=== PATIENT | female | born 1955 | race Caucasian/White ===

== ENCOUNTER 2016-07-23 10:00 | Inpatient (IN) ==
[2016-07-23 12:30] LABS: Basophils # (Auto) 0 K/mcL (0.0-0.3); Basophils % (Auto) 0.2 % (0.0-2.0); Eosinophils # (Auto) 0.2 K/mcL (0.0-0.7); Eosinophils % (Auto) 2.6 % (0.0-7.0); Granulocytes % (Auto) 68.5 % (38.0-78.0); Lymphocytes # (Auto) 1.7 K/mcL (1.5-4.8); Lymphocytes % (Auto) 23.6 % (15.5-49.0); Mean Cell Volume 94.9 fL (80.0-100.0); Mean Corpuscular HGB Conc 33.1 g/dL (31.0-36.0); Mean Corpuscular Hemoglobin 31.4 pg (26.0-34.0); Monocytes # (Auto) 0.4 K/mcL (0.1-0.9); Monocytes % (Auto) 5.1 % (1.0-9.0); Platelet Count 296 K/mcL (140-440); RBC 4.53 M/mcL (4.00-5.20); Red Cell Distribution Width 12.5 % (11.5-14.5)
[2016-07-23 12:41] LABS: Blood Urea Nitrogen 16 mg/dl (6-20)
[2016-07-23 14:43] LABS: Appearance,Urine CLEAR; Bilirubin,Urine NEG (NEG); Color,Urine YELLOW; Glucose,Urine (UA) NEGATIVE (NEG); Leukocyte Esterase,Urine NEG /uL (NEG); Nitrate,Urine NEG (NEG); Protein,Urine NEG (NEG); Specific Gravity,Urine 1.013 (1.000-1.035); Urine Blood NEG mg/dL (<0.03); Urobilinogen,Urine NEG (NEG)
[2016-07-29] MEDS ORDERED: oxyCODONE 10 MG TAB.ER.12H PO SCH (05:00)
[2016-07-29] MEDS ORDERED: ACETAMINOPHEN 500 MG TABLET PO SCH (05:00)
[2016-07-29] MEDS ORDERED: PREGABALIN 150 MG CAPSULE PO SCH (05:00)
[2016-07-29] MEDS ORDERED: CELECOXIB 200 MG CAPSULE PO SCH (05:00)
[2016-07-29] MEDS ORDERED: KETOROLAC 30 MG, ROPIVACAINE HCL/PF 49.5 ML, EPINEPHrine 0.5 MG, 0.9 % SODIUM CHLORIDE ... IJ SCH (06:30)
[2016-07-29] MEDS ORDERED: CLINDAMYCIN 900 MG in DEXTROSE 5% IN WATER 50 ML IV SCH (06:30)
[2016-07-29] MEDS ORDERED: SCOPOLAMINE 1 PATCH PATCH TOPICAL ONE (10:37)
[2016-07-29] MEDS ORDERED: TRANEXAMIC ACID 1,000 MG/10 ML VIAL IV ONE ×2 (16:00→17:35)
[2016-07-29] MEDS ORDERED: DEXAMETHASONE 10 MG/ML VIAL IV ONE (16:00)
[2016-07-29] MEDS ORDERED: PROPOFOL 200 MG/20 ML VIAL IV ONE (16:00)
[2016-07-29] MEDS ORDERED: MIDAZOLAM 5 MG/5 ML VIAL IV ONE (16:00)
[2016-07-29] MEDS ORDERED: PHENYLEPHRINE 10 MG/ML VIAL IV ONE (16:00)
[2016-07-29] MEDS ORDERED: GLYCOPYRROLATE 0.2 MG/ML VIAL IV ONE (16:00)
[2016-07-29] MEDS ORDERED: LIDOCAINE HCL/PF 100 MG/5 ML SYRINGE IV ONE (16:00)
[2016-07-29] MEDS ORDERED: ROPIVACAINE HCL/PF 30 ML VIAL IJ ONE (16:00)
[2016-07-29] MEDS ORDERED: ONDANSETRON 4 MG/2 ML VIAL IV ONE (16:00)
[2016-07-29] MEDS ORDERED: GENTAMICIN SULFATE 800 MG/20 ML VIAL IR ONE (16:23)
[2016-07-29] MEDS ORDERED: ONDANSETRON 4 MG/2 ML VIAL IV PRN (16:37)
[2016-07-29] MEDS ORDERED: PROMETHAZINE 25 MG/ML VIAL IM ONE (16:37)
[2016-07-29] MEDS ORDERED: METHOCARBAMOL 1,000 MG/10 ML VIAL IV PRN (16:37)
[2016-07-29] MEDS ORDERED: MEPERIDINE 25 MG/ML SYRINGE IV PRN (16:37)
[2016-07-29] MEDS ORDERED: PROMETHAZINE 25 MG/ML VIAL IV PRN (16:37)
[2016-07-29] MEDS ORDERED: METOCLOPRAMIDE 10 MG/2 ML VIAL IV PRN (16:37)
[2016-07-29] MEDS ORDERED: IPRATROPIUM/ALBUTEROL 3 ML AMPUL.NEB NEB PRN (16:37)
[2016-07-29] MEDS ORDERED: LACTATED RINGERS 250 ML IV PRN (16:37)
[2016-07-29] MEDS ORDERED: NALOXONE HCL 0.4 MG/ML VIAL IV PRN (16:37)
[2016-07-29] MEDS ORDERED: diphenhydrAMINE 50 MG/ML VIAL IV PRN (16:37)
[2016-07-29] MEDS ORDERED: ePHEDrine 50 MG/ML AMPUL IV PRN (16:37)
[2016-07-29] MEDS ORDERED: BENZOCAINE/MENTHOL 1 LOZENGE PO PRN ×2 (16:37→17:35)
[2016-07-29] MEDS ORDERED: fentaNYL 100 MCG/2 ML VIAL IV PRN (16:37)
[2016-07-29] MEDS ORDERED: MEPERIDINE 50 MG/ML SYRINGE IM ONE (16:37)
[2016-07-29] MEDS ORDERED: FLUMAZENIL 0.1 MG/ML ML IV PRN (16:37)
[2016-07-29] MEDS ORDERED: HYDROmorphone 2 MG/ML SYRINGE IV PRN ×2 (16:37→17:35)
[2016-07-29] MEDS ORDERED: LACTATED RINGERS 1,000 ML IV SCH (16:45)
[2016-07-29] MEDS ORDERED: FLEETS ADULT ENEMA PR PRN (17:35)
[2016-07-29] MEDS ORDERED: POLYETHYLENE GLYCOL 3350 17 GM PACKET PO PRN (17:35)
[2016-07-29] MEDS ORDERED: BISACODYL 10 MG SUPP.RECT PR PRN (17:35)
[2016-07-29] MEDS ORDERED: TEMAZEPAM 15 MG CAPSULE PO PRN (17:35)
[2016-07-29] MEDS ORDERED: ACETAMINOPHEN 325 MG TABLET PO PRN (17:35)
[2016-07-29] MEDS ORDERED: MAGNESIUM HYDROXIDE 30 ML ORAL.SUSP PO PRN (17:35)
[2016-07-29] MEDS ORDERED: HYDROCODONE/APAP 7.5/325MG TABLET PO PRN (17:38)
[2016-07-29] MEDS ORDERED: traMADol 50 MG TABLET PO PRN (17:38)
--- NOTE | 2016-07-29 17:44 | Brief Operative Note ---
Date of procedure: 07/29/16 Pre-op diagnosis: right knee djd Post-op diagnosis: same Procedure: right total knee Grafts/Implants: Yes Anesthesia: GETA Findings: severe valgus djd Complications: none Surgeon: Rodrigo Aparicio Crust Sorter: Bill Bernard Estimated blood loss (cc): 30 Tourniquet Time (Minutes): 33 Specimens Removed/Pathology: none sent Condition: stable Disposition: PACU
[2016-07-29] MEDS ORDERED: ceFAZolin 1 GM VIAL IV SCH (17:45)
[2016-07-29] MEDS: KETOROLAC 15 MG/ML VIAL IV SCH (17:59)
--- NOTE | 2016-07-29 18:11 | XRay Report ---
CLINICAL INFORMATION: Postsurgical follow-up TECHNIQUE: AP and lateral right knee COMPARISON: None. FINDINGS: Status post right total knee arthroplasty. Femoral and tibial complements are in anatomic positions. There is postsurgical soft tissue and intra-articular gas. IMPRESSION: Postoperative right total knee arthroplasty. Interpreted and Authenticated by: Matt Bolivar 07/29/16
[2016-07-29] MEDS: 0.45 % SODIUM CHLORIDE 1,000 ML IV SCH (20:09)
[2016-07-29] MEDS: ASPIRIN 325 MG ENTERIC COATED TABLET PO SCH (20:42)
[2016-07-29] MEDS: DOCUSATE SODIUM 100 MG CAPSULE PO SCH (20:42)
[2016-07-29] MEDS: ONDANSETRON 4 MG/2 ML VIAL IV PRN (20:53)
[2016-07-29] MEDS: HYDROcodone/APAP 10/325MG TABLET PO PRN (20:53)
[2016-07-29] MEDS ORDERED: SENNOSIDES 1 TABLET PO SCH (21:00)
[2016-07-29] MEDS ORDERED: ATORVASTATIN 20 MG TABLET PO SCH (21:00)
[2016-07-29] MEDS: 0.9 % SODIUM CHLORIDE 10 ML SYRINGE IV SCH (22:48)
[2016-07-30] MEDS: KETOROLAC 15 MG/ML VIAL IV SCH ×3 (00:57→12:07)
[2016-07-30] MEDS: CLINDAMYCIN 900 MG in DEXTROSE 5% IN WATER 50 ML IV SCH ×2 (00:57→08:11)
[2016-07-30] MEDS: HYDROcodone/APAP 10/325MG TABLET PO PRN ×4 (01:08→14:50)
[2016-07-30] MEDS: ONDANSETRON 4 MG/2 ML VIAL IV PRN ×3 (01:09→09:56)
[2016-07-30] MEDS: 0.45 % SODIUM CHLORIDE 1,000 ML IV SCH ×2 (03:06→10:01)
[2016-07-30] MEDS: 0.9 % SODIUM CHLORIDE 10 ML SYRINGE IV SCH ×2 (05:33→12:08)
[2016-07-30] MEDS ORDERED: GLIMEPIRIDE 2 MG TABLET PO SCH (07:30)
[2016-07-30] MEDS ORDERED: LEVOTHYROXINE 25 MCG TABLET PO SCH (07:30)
--- NOTE | 2016-07-30 07:52 | Orthopedic Progress Note ---
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 Chief Complaint: [Pt is stable this morning on post operative day 1 without any significant concerns or complaints. Patients vital signs have remained stable. Patients dressing is dry and exhibits a grossly intact neurovascular and neuromotor exam. Patients 10 point ROS is otherwise negative. ] Objective Vital signs: Vital Signs Temp Pulse Resp BP BP BP Pulse Ox 07/30/16 03:56 97.1 F L 83 20 130/85 96 07/30/16 03:00 95 07/30/16 00:00 98.1 F 87 20 134/80 94 07/29/16 23:00 95 07/29/16 21:02 91 H 137/81 96 07/29/16 20:02 78 128/80 96 07/29/16 19:43 96 07/29/16 19:42 96 07/29/16 19:32 89 128/74 96 07/29/16 19:02 77 124/70 96 07/29/16 18:47 84 139/74 98 07/29/16 18:31 73 129/86 97 07/29/16 18:17 75 133/89 98 07/29/16 18:00 80 16 135/84 97 07/29/16 17:50 86 15 134/79 95 07/29/16 17:45 81 15 132/74 95 07/29/16 17:40 82 14 118/84 99 07/29/16 17:35 69 13 108/65 96 07/29/16 17:31 98.0 F 67 13 115/61 99 07/29/16 12:00 97.1 F L 73 20 137/87 137/85 95 07/29/16 11:35 97.1 F L 73 20 137/87 95 Intake and Output 07/29/16 07/30/16 07/30/16 21:59 05:59 13:59 Intake Total 1100 / 1100 900 / 900 Output Total 376 / 376 Balance 1074 / 1074 524 / 524 Intake: IV 1100 / 1100 Oral 900 / 900 Output: Void Amount 375 / 375 # of times incontinent of urine Estimated Blood Loss Other: # Voids 1 1 Weight 198 lb Intake & Output: Intake & Output 07/29/16 07/30/16 07/30/16 21:59 05:59 13:59 Intake Total 1100 / 1100 900 / 900 Output Total 376 / 376 Balance 1074 / 1074 524 / 524 Weight 198 lb Intake: IV 1100 / 1100 Oral 900 / 900 Output: Void Amount 375 / 375 # of times incontinent of urine Estimated Blood Loss Other: # Voids 1 1 Incision: Yes healing Incision clean and dry: Yes Dressing: Yes clean, Yes dry Weight bearing status: full Neurological exam IM: Yes motor sensory intact, Yes neurovascular intact Extremities exam IM: Yes Foot pink and warm, Yes neurovascular intact - Labs CBC & BMP: 07/30/16 04:40 07/23/16 10:54 Labs: Orthopedic Labs 07/23/16 10:54 PT 12.9 INR 1.0 APTT 30 07/30/16 07/23/16 04:40 10:54 Hgb 14.2 Hct 39.2 43.0 Assessment and Plan (1) Hx of total knee arthroplasty Patient has been educated regarding wound care and dressings, follow up recommendations, and medication use. We will f/u with the patient within 2-3 weeks for wound check. Status: Acute
--- NOTE | 2016-07-30 07:55 | Discharge Summary ---
Ortho Discharge - TKA - Patient Instructions Diet: Regular Diet Activity: activity as tolerated, weight bearing as tolerated Total Knee Protocol: For Total Knee: Start ROM VIRGEN with stationary bike or rocking chair. Work on gaining full extension of knee. Posterior dislocation precautions provided. Hip abductor strengthening and gait training instructions provided. Apply Cryocuff as instructed. Dressing Care: May shower in 2 days - Problem Maintenance (1) Hx of total knee arthroplasty Status: Acute - Follow Up Plan Follow Up Appointments: Rodrigo Aparicio MD [Physician] - 08/13/16 10:10 am Disposition: Home, Self-Care Prognosis: Good Rehab Potential: Good I certify that the patient requires SNF services: No Overall status at discharge: patient is progressing back to baseline - Orders For Discharge Prescriptions: Aspirin [Ecotrin] 325 mg PO BID #60 tab.ec Docusate Sodium [Colace] 100 mg PO BID #60 capsule HYDROcodone/APAP 10/325MG [[place] 10/325Mg] 1 - 2 tab PO Q4HP PRN #75 tablet PRN Reason: Pain Promethazine [Phenergan] 25 mg PO Q4-6HP PRN #60 tablet PRN Reason: Nausea
[2016-07-30] MEDS ORDERED: FERROUS SULFATE 325 MG TABLET PO SCH (08:00)
[2016-07-30] MEDS: metFORMIN 850 MG TABLET PO SCH ×2 (08:11→12:07)
[2016-07-30] MEDS: DOCUSATE SODIUM 100 MG CAPSULE PO SCH (08:17)
[2016-07-30] MEDS: ASPIRIN 325 MG ENTERIC COATED TABLET PO SCH (08:17)
--- NOTE | 2016-07-30 08:44 | Operative Note ---
DATE OF OPERATION: 07/29/2016 PREOPERATIVE DIAGNOSIS: Right knee degenerative arthritis with a prior ACL tear with severe arthritis. POSTOPERATIVE DIAGNOSIS: Right knee degenerative arthritis with a prior ACL tear with severe arthritis. PROCEDURE: Right total knee arthroplasty with ACL screw removal. SURGEON: Rodrigo Aparicio MD. DETENTION WORKER: Bill Bernard PA-C. ANESTHESIA: General LMA anesthesia. COMPLICATIONS: None. ESTIMATED BLOOD LOSS: About 20 to 30 mL. IMPLANTS: Size 3 femur and size 3 tibial baseplate, both cemented components with ODC components with a 9 mm poly insert, 32 mm patellar button cemented. TOTAL TOURNIQUET TIME: Approximately 33 minutes. DESCRIPTION OF PROCEDURE: The patient was brought to the operating room and put to sleep with general LMA anesthesia. Once asleep, the right leg was sterilely prepped and draped in the usual sterile fashion and Ioban placed over the skin. Tourniquet inflated to 250 pounds of pressure. Once complete, we then made a midline incision after confirming this to be the operative site, and tranexamic and preop antibiotics had been given. Once complete, we then made a midline incision. A mid vastus approach was performed. There was severe wear laterally and posteriorly as well as patellofemoral groove. The ACL did appear to be intact. At this point, we removed the remnants of the meniscus, anterior fat pad and remnants of the ACL. At this point, we then placed an intramedullary guide jw into the femur, made our distal femoral cut at 9 mm with 5 degrees of valgus. Once this was done, we then irrigated thoroughly, removed the bony fragments after making the chamfer cuts after sizing for size 3 component. At this point, we proceeded with the tibial component. We measured 8 mm below the least involved area. We cut to depth and then removed the bony fragments and the remnants of the meniscus, removed osteophytes posteriorly. Once done, I then placed tibial baseplate size 3, which was tapped into place with anatomic external rotation. Once the fins were cut into place, we did remove the ACL screw and sheath through the tibial surface. Some of the remnants of the ACL were also removed from the bone which were ingrown. At this point, we then made the box cut for the femur size 3 component posterior stabilized design. We trialed the size 3 femur and size 3 tibial baseplate with a 9 mm poly. This seemed to fit very well, although somewhat tight laterally. This seemed to balance very nicely in both flexion and extension. We irrigated thoroughly and prepared the patella. It measured 20 mm in total thickness. We cut this to 13 mm and placed a 32 mm component. We irrigated thoroughly. We then cemented into place a size 3 femur and size 3 tibial base plate. A 9 mm poly was inserted as well as a 32 mm patellar button. This was kept at 45 degrees. Excess cement removed. Once this was done and once the cement was hard, we took the knee through range of motion which did very well, equally balanced once more. We closed the mid vastus approach with #2 FiberWire and an 0 double-armed Maxon interlocking stitch, closed the skin with 2-0 Vicryl and katrin superficially. The patient tolerated this well without complication. Blood loss about 20 to 30 mL. Tourniquet time was 33 minutes. RBH:shaw Job ID: [id number] Doc ID: [id number] Rodrigo Aparicio MD
[2016-07-30] MEDS ORDERED: sitaGLIPtin 50 MG TABLET PO SCH (09:00)
[2016-07-30] MEDS ORDERED: OXYBUTYNIN CHLORIDE 5 MG TAB.XL.24H PO SCH (09:00)
[2016-07-30] MEDS ORDERED: MULTIVIT,THER IRON,CA,FA & MIN 1 TABLET PO SCH (09:00)
[2016-07-30] MEDS ORDERED: buPROPion 150 MG TAB.XL.24H PO SCH (09:00)
[2016-07-30] MEDS ORDERED: LISINOPRIL 10 MG TABLET PO SCH (09:00)
[2016-07-30] MEDS ORDERED: HYDROCHLOROTHIAZIDE 12.5 MG CAPSULE PO SCH (09:00)
== END 2016-07-30 16:40 | disposition home or self-care (01) | DRG 470 ==
LOC: MEDSUR 07-29 11:35
PROVIDERS: ADMIT Orthopaedic Surgery; ATTEND Orthopaedic Surgery

== ENCOUNTER 2020-01-27 14:55 | Inpatient (IN) ==
--- NOTE | 2020-01-27 15:47 | Emergency Department Note ---
Extremity Problem HPI General Chief complaint: Extremity Problem,Nontraumatic Stated complaint: R knee pain x2D Time Seen by Provider: 01/27/20 15:04 Source: patient Mode of arrival: ambulatory Limitations: no limitations History of Present Illness HPI Narrative: Narrative: 64-year-old female presents emergency department from her outpatient clinic for complaints of right knee pain x2 days. The patient had a total knee arthroplasty [address] Aparicio. She states that she went to bed and woke up with severe global knee pain. She was unable to range of motion the extremity due to severe discomfort. She denies chills or sweats, but did have a low-grade temperature of 101 yesterday. She was advised to come to the emergency department for evaluation and probable surgical I&D for an infected total knee. Patient has a history of poorly controlled diabetes. She believes her last A1c was around 10. She is currently on metformin, glimepiride, and insulin. She is currently not on blood thinners. She has no history of clotting disorders or DVTs. No known cardiac history. She denies recent illness. No cough or shortness of breath. No abdominal pain or changes in her bowel habits. No dysuria. No ill exposures. She does live in [place], [place]. Related Data Home Medications Medication Instructions Recorded Confirmed Atorvastatin [Lipitor] 10 mg PO HS 07/23/16 01/27/20 aspirin 81 mg CHEWED DAILY 07/23/16 01/27/20 bupropion HCl [Wellbutrin XL] 300 mg PO DAILY 07/23/16 01/27/20 glimepiride 2 mg PO BIDAC 07/23/16 01/27/20 lisinopril-hydrochlorothiazide 1 tab PO DAILY 07/23/16 01/27/20 metformin 850 mg PO TIDCC 07/23/16 01/27/20 oxybutynin chloride 10 mg PO DAILY 07/23/16 01/27/20 gabapentin 300 mg PO TID 01/27/20 01/27/20 insulin glargine [Basaglar KwikPen 30 unit SUBCUT DAILY 01/27/20 01/27/20 U-100 Insulin] meloxicam [Mobic] 15 mg PO QDAY 01/27/20 01/27/20 [id number]-[id number]-vit K 1 tab PO DAILY 01/27/20 01/27/20 [Adults Multivitamin] Previous Rx's Medication Instructions Recorded hydrocodone-acetaminophen 1 - 2 tab PO Q4HP PRN #75 tablet 07/30/16 Allergies Allergy/AdvReac Type Severity Reaction Status Date / Time Penicillins Allergy Severe Anaphylaxis Verified 07/23/16 10:19 Review of Systems ROS ROS Narrative: Narrative: Constitutional: Reports as per HPI Cardiovascular: Denies chest pain and palpitations Gastrointestinal: Denies abdominal pain, nausea and vomiting Genitourinary: Denies dysuria and frequency Musculoskeletal: Reports as per HPI Integumentary: Denies rash and lesions Hematological/Lymphatic: Reports other (No history of clotting disorders or DVTs) [facility] Narrative Patient History Narrative: Narrative: Medical/Surgical/Family History All Active Problems (Updated 01/27/20 @ 16:10 by Mariama Bragg PA-C) Hx of total knee arthroplasty (Acute) Infected prosthetic knee joint (Acute) Surgical History (Updated 01/27/20 @ 16:10 by Mariama Bragg PA-C) Hx of total knee arthroplasty (Acute) Social History Smoking Status: Former smoker Exam Narrative Narrative: Narrative: General Limitations: no limitations General appearance: alert, anxious, in no apparent distress and nontoxic Head Head: atraumatic, normocephalic and normal inspection Eye Eye: Present normal appearance, PERRL and EOMI ENT ENT: Present normal exam Respiratory Respiratory: Present normal lung sounds bilaterally Cardiovascular Cardiovascular: Present regular rate, normal rhythm and normal heart sounds Extremities Extremities: Present tenderness, normal capillary refill and joint swelling (Warm to the touch, mild joint swelling noted.); Absent calf tenderness Expanded Lower Extremity Upper leg: Present tenderness (Right knee joint), swelling and erythema; Absent full ROM Knee: Present tenderness, erythema and other (Painful ROM) Course Vital Signs Vital signs: Vital Signs Temperature 98.3 F 01/27/20 14:57 Pulse Rate 80 01/27/20 14:57 Respiratory Rate 18 01/27/20 14:57 Blood Pressure 124/76 01/27/20 14:57 Pulse Oximetry (%) 96 01/27/20 14:57 Temperature 98.3 F 01/27/20 14:57 Pulse Rate 82 01/27/20 17:16 Respiratory Rate 18 01/27/20 14:57 Blood Pressure 122/88 01/27/20 17:16 Pulse Oximetry (%) 96 01/27/20 17:16 MDM MDM Narrative Medical decision making narrative: Narrative: 64-year-old female with a history of right total knee arthroplasty presents with new onset acute knee pain and concern for infection. Assessment: #1. Periprosthetic joint infection, right: History of right TKA [address] Aparicio. -Joint aspiration, Dr. Tilley's PA is here to perform that. We will send off cultures, Gram stain's, cell count, etc -We will plan to contact hospitalist for admission for IV antibiotics and likely arthroscopic washout tomorrow morning -Sed rate, CRP, CBC currently pending -Bcx x 2 -Start vanco now (has anaphylaxis to penicillins) -Admit to hospitalist service, orthopedics consulting #2. Poorly controlled type 2 diabetes: -A1c is pending Lab Data Result diagrams: 01/27/20 15:49 01/27/20 15:49 Labs: Lab Results 01/27/20 01/27/20 01/27/20 Range/Units 15:49 15:49 15:49 WBC 9.1 (4.50-11.00) K/mcL RBC 4.53 (3.59-5.38) M/mcL Hgb 14.3 (11.2-15.7) g/dL Hct 41.8 (34.1-44.9) % MCV 92.3 (80.0-100.0) fL MCH 31.6 (26.0-34.0) pg MCHC 34.2 (31.0-36.0) g/dL RDW 11.7 (11.5-14.5) % Plt Count 195 (140-440) K/mcL MPV 9.5 (7.4-10.4) fL Total Counted 100 Seg Neutrophils % 76 (38-78) % Band Neutrophils % Not Reportable Lymphocytes % 18 (15-49) % Monocytes % (Manual) 5 (1-12) % Basophils % (Manual) 1 (0-2) % Platelet Estimate Normal (NORMAL) RBC Morphology Normal (NORMAL) ESR 34 H (0-20) mm/hr PT 12.3 (11.9-14.5) sec INR 0.9 (0.9-1.1) Sodium 133 (133-145) mmol/L Potassium 3.7 (3.3-5.1) mmol/L Chloride 95 L (96-108) mmol/L Carbon Dioxide 23 (22-30) mmol/L Anion Gap 15.0 (8-16) BUN 21 (8-23) mg/dl Creatinine 1.1 (0.6-1.1) mg/dl GFR Calculation 54 Glucose 244 H (70-105) mg/dL Hemoglobin A1c 11.5 H (4.0-6.0) % HGB Estim Average Glucose 283 mg/dL Calcium 9.5 (8.6-10.4) mg/dl Total Bilirubin 0.9 (0.0-1.0) mg/dL AST 24 (0-37) U/l ALT 54 H (0-40) U/l Alkaline Phosphatase 63 (39-117) U/L C-Reactive Protein 17.7 H (0.0-0.8) mg/dl Total Protein 7.3 (5.9-8.4) gm/dL Albumin 4.1 (3.2-5.2) gm/dL Globulin 3.2 (2.2-3.7) gm/dL Albumin/Globulin Ratio 1.3 (1.0-2.3) Urine Color Urine Appearance Urine pH (5.0-9.0) Ur Specific [place] (1.000-1.035) Urine Protein (NEG) mg/dL Urine Glucose (UA) (NEG) mg/dL Urine Ketones (NEG) mg/dL Urine Occult Blood (<0.03) mg/dL Urine Nitrate (NEG) Urine Bilirubin (NEG) mg/dL Urine Urobilinogen (NEG) mg/dL Ur Leukocyte Esterase (NEG) /uL Urine RBC (0-1) /hpf Urine WBC (0-4) /hpf Ur Squamous Epith Cells (0-4) /hpf Urine Bacteria (0) /hpf Hyaline Casts (0-2) /lpf Urine Mucus (0) /hpf Ur Culture Indicated? Synovial Source Synovial Color Synovial Appearance Synovial Tot Cell Ct Synovial Nuc Cells /cumm Synovial Lymphocytes Synovial Other Cells Synovial Diff Comment 01/27/20 01/27/20 Range/Units 16:32 17:17 WBC (4.50-11.00) K/mcL RBC (3.59-5.38) M/mcL Hgb (11.2-15.7) g/dL Hct (34.1-44.9) % MCV (80.0-100.0) fL MCH (26.0-34.0) pg MCHC (31.0-36.0) g/dL RDW (11.5-14.5) % Plt Count (140-440) K/mcL MPV (7.4-10.4) fL Total Counted Seg Neutrophils % (38-78) % Band Neutrophils % Lymphocytes % (15-49) % Monocytes % (Manual) (1-12) % Basophils % (Manual) (0-2) % Platelet Estimate (NORMAL) RBC Morphology (NORMAL) ESR (0-20) mm/hr PT (11.9-14.5) sec INR (0.9-1.1) Sodium (133-145) mmol/L Potassium (3.3-5.1) mmol/L Chloride (96-108) mmol/L Carbon Dioxide (22-30) mmol/L Anion Gap (8-16) BUN (8-23) mg/dl Creatinine (0.6-1.1) mg/dl GFR Calculation Glucose (70-105) mg/dL Hemoglobin A1c (4.0-6.0) % HGB Estim Average Glucose mg/dL Calcium (8.6-10.4) mg/dl Total Bilirubin (0.0-1.0) mg/dL AST (0-37) U/l ALT (0-40) U/l Alkaline Phosphatase (39-117) U/L C-Reactive Protein (0.0-0.8) mg/dl Total Protein (5.9-8.4) gm/dL Albumin (3.2-5.2) gm/dL Globulin (2.2-3.7) gm/dL Albumin/Globulin Ratio (1.0-2.3) Urine Color Yellow Urine Appearance Clear Urine pH 5.0 (5.0-9.0) Ur Specific [place] 1.018 (1.000-1.035) Urine Protein Neg (NEG) mg/dL Urine Glucose (UA) >=500 A (NEG) mg/dL Urine Ketones Neg (NEG) mg/dL Urine Occult Blood Neg (<0.03) mg/dL Urine Nitrate Neg (NEG) Urine Bilirubin Neg (NEG) mg/dL Urine Urobilinogen Neg (NEG) mg/dL Ur Leukocyte Esterase Neg (NEG) /uL Urine RBC < 1 (0-1) /hpf Urine WBC 1 (0-4) /hpf Ur Squamous Epith Cells < 1 (0-4) /hpf Urine Bacteria 0 (0) /hpf Hyaline Casts 31 H (0-2) /lpf Urine Mucus Few (0) /hpf Ur Culture Indicated? No Synovial Source Right knee Synovial Color Red Synovial Appearance Bloody Synovial Tot Cell Ct Not Reportable Synovial Nuc Cells [id number] /cumm Synovial Lymphocytes Not Reportable Synovial Other Cells Not Reportable Synovial Diff Comment Not Reportable Discharge Plan Patient/Caregiver Discharge Instructions Pt seen by HEAVY EQUIPMENT RENTAL MANAGER/PA only: Yes Clinical Impression: Hx of total knee arthroplasty, Infected prosthetic knee joint Instructions: Joint Incision and Drainage (DC) Patient Disposition: Xfer As Inpt ([facility]) Condition: Fair Follow up with: Neftali Marina MD [Primary Care Provider] - Prescriptions: No Action Atorvastatin [Lipitor] 10 MG Tablet 10 mg PO HS RF: 0 oxybutynin chloride 10 MG tablet extended release 24hr 10 mg PO DAILY RF: 0 metformin 850 MG tablet 850 mg PO TIDCC RF: 0 glimepiride 2 MG tablet 2 mg PO BIDAC RF: 0 aspirin 81 MG tablet,chewable 81 mg CHEWED DAILY RF: 0 lisinopril-hydrochlorothiazide 1 TAB tablet 1 tab PO DAILY RF: 0 bupropion HCl [Wellbutrin XL] 300 MG tablet extended release 24 hr 300 mg PO DAILY RF: 0 hydrocodone-acetaminophen 1 TAB tablet 1 - 2 tab PO Q4HP PRN (Reason: Pain) Qty: 75 RF: 0 meloxicam [Mobic] 15 mg Tablet 15 mg PO QDAY RF: 0 gabapentin 300 mg Capsule 300 mg PO TID RF: 0 Basaglar KwikPen U-100 Insulin 100 unit/mL (3 mL) Insulin Pen 30 unit SUBCUT DAILY RF: 0 Adults Multivitamin 18 mg iron-400 mcg-25 mcg Tablet 1 tab PO DAILY RF: 0 Assessment: 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 Currently no obvious source. UA is negative.. Plan of Treatment: Admit to hospitalist service for IV antibiotics and washout of her right knee in the a.m. Start IV vancomycin now Obtain blood cultures x2 (prior to antibiotic infusion) Fluid cultures are pending Analgesics for pain management
--- NOTE | 2020-01-27 16:23 | XRay Report ---
CLINICAL INFORMATION: Right knee pain x 2 days with h/o TKA COMPARISON: None. FINDINGS: Total knee prostheses remains anatomically aligned without loosening or infection. No osseous abnormality. Small effusion is present. IMPRESSION: Total knee prostheses is unremarkable. Small effusion Interpreted and Authenticated by: Matt Tomas 01/27/20
[2020-01-27 16:27] LABS: Hematocrit 41.8 % (34.1-44.9); Hemoglobin 14.3 g/dL (11.2-15.7); Mean Cell Volume 92.3 fL (80.0-100.0); Mean Corpuscular HGB Conc 34.2 g/dL (31.0-36.0); Mean Platelet Volume 9.5 fL (7.4-10.4); Platelet Count 195 K/mcL (140-440); RBC 4.53 M/mcL (3.59-5.38); Red Cell Distribution Width 11.7 % (11.5-14.5); WBC 9.1 K/mcL (4.50-11.00)
[2020-01-27 16:46] LABS: INR 0.9 (0.9-1.1); Prothrombin Time 12.3 sec (11.9-14.5)
[2020-01-27 16:49] LABS: Basophils % (Manual) 1 % (0-2); Lymphocytes % 18 % (15-49); Monocytes % (Manual) 5 % (1-12); Platelet Estimate NORMAL (NORMAL); RBC Morphology NORMAL (NORMAL); Segmented Neutrophils % 76 % (38-78)
[2020-01-27 16:50] LABS: ALT/SGPT 54 U/l (0-40); AST/SGOT 24 U/l (0-37); Albumin 4.1 gm/dL (3.2-5.2); Albumin/Globulin Ratio 1.3 (1.0-2.3); Alkaline Phosphatase 63 U/L (39-117); Bilirubin,Total 0.9 mg/dL (0.0-1.0); Blood Urea Nitrogen 21 mg/dl (8-23); C-Reactive Protein 17.7 mg/dl (0.0-0.8); Calcium 9.5 mg/dl (8.6-10.4); Carbon Dioxide 23 mmol/L (22-30); Chloride 95 mmol/L (96-108); Globulin 3.2 gm/dL (2.2-3.7); Glomerular Filtration Rate 54; Glucose 244 mg/dL (70-105)
[2020-01-27 17:07] LABS: Estimated Average Glucose(eAG) 283 mg/dL; Hemoglobin A1C 11.5 % HGB (4.0-6.0)
--- NOTE | 2020-01-27 17:22 | History and Physical Report ---
DATE OF ADMISSION: 01/27/2020 CHIEF COMPLAINT: Right knee pain. HISTORY OF PRESENT ILLNESS: This is a 64-year-old female who presented to the Emergency Department complaining of right knee pain which began approximately 2 days ago. She does have a history of a right total knee arthroplasty approximately 3 [address] Aparicio. She states this pain came on without any traumatic event and woke her up in the middle night. She denies any chills or sweats. She does admit to a fever of 101 degrees yesterday. We were consulted to further evaluate her right knee pain. MEDICATIONS: Atorvastatin 10 mg p.o. at bedtime. [place] 7.5/325 mg, 1 tab p.o. q.6h. p.r.n. Aspirin 81 mg daily. Bupropion 300 mg p.o. daily. Ferrous sulfate 325 mg p.o. b.i.d Glimepiride 2 mg p.o. b.i.d. Levothyroxine 25 mcg p.o. q.a.m. Lisinopril 1 tab p.o. daily. Metformin 850 mg p.o. t.i.d. Multivitamin 1 tab p.o. daily. Oxybutynin 10 mg p.o. daily. Sitagliptin 50 mg p.o. daily. Tramadol 50 mg p.o. q.6h. p.r.n. ALLERGIES: PENICILLIN-SEVERE ANAPHYLAXIS. REVIEW OF SYSTEMS: Negative except as noted in the HPI. PAST SURGICAL HISTORY: Right total knee arthroplasty and right shoulder arthroscopy. SOCIAL HISTORY: She admits to being a former smoker. She denies any significant alcohol or recreational drug use. PHYSICAL EXAMINATION: VITAL SIGNS: Blood pressure 124/76, pulse 80, respirations 18, temperature 98.3 degrees Fahrenheit, pulse ox 96 on room air. LABORATORY DATA: Current labs show a normal CBC. CRP and sed rate are pending. PHYSICAL EXAMINATION: GENERAL: The patient appears to be in mild distress but is lying supine in her bed. She is able to have conversation. HEART: Regular rate and rhythm without murmur. RESPIRATORY: Clear to auscultation bilaterally. No wheezes, rhonchi or rales. MUSCULOSKELETAL: Right knee inspection reveals mild swelling and effusion with warmth to the touch. There is mild erythema present without any gross deformity. Passive and active range of motion is significantly limited due to pain/tenderness. There is severe tenderness to palpation diffusely throughout the knee. Right lower extremity was neurovascularly intact. IMAGING: Radiographs of the right knee revealed total knee arthroplasty with prostheses that are well positioned and appear to be well fixated without signs of loosening. There does appear to be effusion present on radiographs. IMPRESSION: Right septic total knee arthroplasty. PLAN: Today, I aspirated approximately 13 mL of purulent blood-tinged synovial fluid. The patient was consented for this. The synovial fluid was sent off for aerobic and anaerobic cultures, Gram stain, cell count, crystals, protein, glucose, etc. CRP and sed rate are pending. After aspirating the knee, I did perform a physical exam. I do think this is an infected total knee arthroplasty and would suggest formal incision and drainage in the operating room with likely poly liner exchange with antibiotic bead placement. Risks, complications, possible limitations were discussed with the patient. She would like to proceed with surgery. We will keep her n.p.o. after midnight tonight. Dr. Aparicio will perform this tomorrow. The patient will contact us with any questions or concerns whatsoever. Dr. Virk was consulted and agrees to admit the patient for IV antibiotics as well as management of her diabetes and other health concerns. ARTHUR:kalani Job ID: [id number] Doc ID: [id number] Aditi Aguilera PA-C
[2020-01-27] MEDS ORDERED: VANCOMYCIN PER PHARMACY IV ONE (17:30)
[2020-01-27 17:32] LABS: Erythrocyte Sedimentation Rate 34 mm/hr (0-20)
--- NOTE | 2020-01-27 17:38 | Internal Med History&Physical ---
HPI History of Present Illness Patient information: Note initiated : 01/27/20 at 5:38 pm Service Date, if different from initiated Date: [] Patient: Jeannie Esposito a 64 y/o F admitted on for R knee pain x2D. Chief Complaint: History of present illness: Ms. Esposito is a 64 year old F with a history of diabetes/hyperlipidemia/HTN anxiety disorder and DJD who presents to the ER with 2 days onset of right lower extremity redness swelling and pain during ambulation and weightbearing. Patient symptoms accompanied with fever. She denies trauma/recent URI, skin infections. She denies recent hospitalization. Initial work-up in the ER included arthrocentesis which revealed purulent aspirate. Cultures along with Gram stain/joint fluid studies were sent. Orthopedics was consulted and recommended hospitalization for operative intervention in the next 24 hours. Subsequently hospital service was consulted. At the time of my evaluation patient is alert and oriented. She denies headache, chest pain, diarrhea, dysuria, nausea, vomiting. She further denies penetrating wound. 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 Review of systems 10 point review system was performed and is negative except for ones discussed above Past medical history * Hypertension * Hyperlipidemia * DM type II * Neuropathy * Degenerative joint disease/chronic back pain * Anxiety disorder Family history Nonsignificant Social history Lives with significant other at [place] [facility] No history of smoking or alcoholism PFSH PFSH All Active Problems (Updated 01/27/20 @ 16:10 by Mariama Bragg PA-C) Hx of total knee arthroplasty (Acute) Infected prosthetic knee joint (Acute) Surgical History (Updated 01/27/20 @ 16:10 by Mariama Bragg PA-C) Hx of total knee arthroplasty (Acute) Social History smoking status: Former smoker MEDS/ALLERGIES Home Medications and Allergies Home Medications Medication Instructions Recorded Confirmed Type Atorvastatin [Lipitor] 10 mg PO HS 07/23/16 01/27/20 History aspirin 81 mg CHEWED DAILY 07/23/16 01/27/20 History bupropion HCl [Wellbutrin XL] 300 mg PO DAILY 07/23/16 01/27/20 History glimepiride 2 mg PO BIDAC 07/23/16 01/27/20 History lisinopril-hydrochlorothiazide 1 tab PO DAILY 07/23/16 01/27/20 History metformin 850 mg PO TIDCC 07/23/16 01/27/20 History oxybutynin chloride 10 mg PO DAILY 07/23/16 01/27/20 History hydrocodone-acetaminophen 1 - 2 tab PO Q4HP PRN #75 tablet 07/30/16 01/27/20 Rx gabapentin 300 mg PO TID 01/27/20 01/27/20 History insulin glargine [Basaglar KwikPen 30 unit SUBCUT DAILY 01/27/20 01/27/20 History U-100 Insulin] meloxicam [Mobic] 15 mg PO QDAY 01/27/20 01/27/20 History uuomfowvpwaz-hvt-nugz-FA-vit K 1 tab PO DAILY 01/27/20 01/27/20 History [Adults Multivitamin] Allergies Allergy/AdvReac Type Severity Reaction Status Date / Time Penicillins Allergy Severe Anaphylaxis Verified 07/23/16 10:19 EXAM Constitutional Vitals: Temp Pulse Resp BP Pulse Ox 98.3 F 82 18 122/88 96 01/27/20 14:57 01/27/20 17:16 01/27/20 14:57 01/27/20 17:16 01/27/20 17:16 Head normocephalic Oral cavity moist No ear nose discharge Eye movement symmetrical Neck supple no lymphadenopathy S1-S2 regular Nonlabored breathing Nondistended nontender abdomen Right knee tender to passive motion/erythematous and warm. Otherwise no cyanosis clubbing Skin no suspicious lesion Psych anxious but alert cooperative Neuro normal higher function DATA Data Completed and Pending Labs: Labs from last 24 hours 01/27/20 01/27/20 01/27/20 17:17 17:05 16:32 WBC RBC Hgb Hct MCV MCH MCHC RDW Plt Count MPV Total Counted Seg Neutrophils % Band Neutrophils % Lymphocytes % Monocytes % (Manual) Basophils % (Manual) Platelet Estimate RBC Morphology ESR PT INR Sodium Potassium Chloride Carbon Dioxide Anion Gap BUN Creatinine GFR Calculation Glucose Hemoglobin A1c Estim Average Glucose Calcium Total Bilirubin AST ALT Alkaline Phosphatase C-Reactive Protein Total Protein Albumin Globulin Albumin/Globulin Ratio Urine Color Pending Urine Appearance Pending Urine pH Pending Ur Specific [place] Pending Urine Protein Pending Urine Glucose (UA) Pending Urine Ketones Pending Urine Occult Blood Pending Urine Nitrate Pending Urine Bilirubin Pending Urine Urobilinogen Pending Ur Leukocyte Esterase Pending Fluid Crystals Synovial Source Synovial Color Synovial Appearance Synovial Tot Cell Ct Synovial Nuc Cells Synovial Neutrophils Synovial Lymphocytes Synovial Other Cells Synovial Diff Comment Synovial Glucose Pending Synovial Total Protein Pending SARS-CoV-2 (PCR) Pending 01/27/20 01/27/20 01/27/20 16:32 15:49 15:49 WBC RBC Hgb Hct MCV MCH MCHC RDW Plt Count MPV Total Counted Seg Neutrophils % Band Neutrophils % Lymphocytes % Monocytes % (Manual) Basophils % (Manual) Platelet Estimate RBC Morphology ESR PT 12.3 INR 0.9 Sodium 133 Potassium 3.7 Chloride 95 L Carbon Dioxide 23 Anion Gap 15.0 BUN 21 Creatinine 1.1 GFR Calculation 54 Glucose 244 H Hemoglobin A1c 11.5 H Estim Average Glucose 283 Calcium 9.5 Total Bilirubin 0.9 AST 24 ALT 54 H Alkaline Phosphatase 63 C-Reactive Protein 17.7 H Total Protein 7.3 Albumin 4.1 Globulin 3.2 Albumin/Globulin Ratio 1.3 Urine Color Urine Appearance Urine pH Ur Specific [place] Urine Protein Urine Glucose (UA) Urine Ketones Urine Occult Blood Urine Nitrate Urine Bilirubin Urine Urobilinogen Ur Leukocyte Esterase Fluid Crystals Pending Synovial Source Pending Synovial Color Pending Synovial Appearance Pending Synovial Tot Cell Ct Not Reportable Synovial Nuc Cells Pending Synovial Neutrophils Pending Synovial Lymphocytes Not Reportable Synovial Other Cells Not Reportable Synovial Diff Comment Not Reportable Synovial Glucose Synovial Total Protein SARS-CoV-2 (PCR) 01/27/20 15:49 WBC 9.1 RBC 4.53 Hgb 14.3 Hct 41.8 MCV 92.3 MCH 31.6 MCHC 34.2 RDW 11.7 Plt Count 195 MPV 9.5 Total Counted 100 Seg Neutrophils % 76 Band Neutrophils % Not Reportable Lymphocytes % 18 Monocytes % (Manual) 5 Basophils % (Manual) 1 Platelet Estimate Normal RBC Morphology Normal ESR 34 H PT INR Sodium Potassium Chloride Carbon Dioxide Anion Gap BUN Creatinine GFR Calculation Glucose Hemoglobin A1c Estim Average Glucose Calcium Total Bilirubin AST ALT Alkaline Phosphatase C-Reactive Protein Total Protein Albumin Globulin Albumin/Globulin Ratio Urine Color Urine Appearance Urine pH Ur Specific [place] Urine Protein Urine Glucose (UA) Urine Ketones Urine Occult Blood Urine Nitrate Urine Bilirubin Urine Urobilinogen Ur Leukocyte Esterase Fluid Crystals Synovial Source Synovial Color Synovial Appearance Synovial Tot Cell Ct Synovial Nuc Cells Synovial Neutrophils Synovial Lymphocytes Synovial Other Cells Synovial Diff Comment Synovial Glucose Synovial Total Protein SARS-CoV-2 (PCR) A/P Narrative A/P Narrative: * Right knee prosthetic joint septic arthritis. Arthrocentesis performed. Await culture sensitivities. Currently on vancomycin. Orthopedic consulted. Will undergo joint washout in a.m. * DM type II continue basal prandial insulin/CC diet * Hypertension restart lisinopril/thiazide * Neuropathy continue gabapentin * Degenerative joint disease continue hydrocodone * Anxiety disorder continue bupropion * prophylaxis Heparin Plan * Inpatient admission * Orthopedic consult * Antibiotic coverage and de-escalate based on joint culture results * Pre-existing medical condition management as above * Keep n.p.o. after midnight * Pain management Time Spent With Patient Time: Total time spent is greater than 50% in coordination of care (as documented) at patient's floor/unit and/or counseling patient:
[2020-01-27] MEDS ORDERED: HYDROCODONE/APAP 7.5/325MG TABLET PO PRN (17:58)
[2020-01-27] MEDS ORDERED: VANCOMYCIN 1,500 MG in 0.9 % SODIUM CHLORIDE 500 ML IV ONE (18:00)
[2020-01-27 18:15] LABS: Appearance,Urine CLEAR; Bacteria,Urine 0 /hpf (0); Bilirubin,Urine NEG (NEG); Color,Urine YELLOW; Culture Indicated,Urine NO; Glucose,Urine (UA) >=500 mg/dL (NEG); Ketones,Urine NEG (NEG); Leukocyte Esterase,Urine NEG /uL (NEG); Mucus,Urine FEW /hpf (0); Nitrate,Urine NEG (NEG); Protein,Urine NEG (NEG); Specific Gravity,Urine 1.018 (1.000-1.035); Urine Blood NEG mg/dL (<0.03); Urine Hyaline Cast 31 /lpf (0-2); Urine RBC < 1 /hpf (0-1); Urine Squamous Epithelial Cell < 1 /hpf (0-4); Urine WBC 1 /hpf (0-4); Urobilinogen,Urine NEG (NEG)
[2020-01-27 18:26] LABS: Appearance,Synovial Fluid BLOODY; Color,Synovial Fluid RED; Nucleated Cells,Synovial Fld 55608 /cumm
[2020-01-27 18:51] LABS: Lymphocytes,Synovial Fluid 2 %; Neutrophils,Synovial Fluid 88 % (0-25); Other Cells,Synovial Fluid 10 %
[2020-01-27] MEDS ORDERED: ONDANSETRON 4 MG/2 ML VIAL IV PRN (18:55)
[2020-01-27] MEDS ORDERED: ONDANSETRON 4 MG ODT TABLET SL PRN (18:55)
[2020-01-27] MEDS ORDERED: POTASSIUM CHLORIDE 20 MEQ PACKET PO PRN (18:55)
[2020-01-27] MEDS ORDERED: ACETAMINOPHEN 325 MG TABLET PO PRN (18:55)
[2020-01-27] MEDS ORDERED: POTASSIUM CHLORIDE 40 MEQ in DEXTROSE 5% IN WATER 500 ML IV PRN (18:55)
[2020-01-27] MEDS ORDERED: DEXTROSE 31 GM ORAL.SUSP PO PRN (18:55)
[2020-01-27] MEDS ORDERED: VANCOMYCIN PER PHARMACY IV SCH (18:55)
[2020-01-27] MEDS ORDERED: cefTRIAXone 2 GM in DEXTROSE 5% IN WATER 50 ML IV SCH (18:55)
[2020-01-27] MEDS ORDERED: POLYETHYLENE GLYCOL 3350 17 GM PACKET PO PRN (18:55)
[2020-01-27] MEDS ORDERED: MELATONIN 3 MG TABLET PO PRN (18:55)
[2020-01-27] MEDS ORDERED: MAGNESIUM SULFATE 2 GM/50 ML BAG IV PRN (18:55)
[2020-01-27] MEDS ORDERED: BISACODYL 10 MG SUPP.RECT PR PRN (18:55)
[2020-01-27] MEDS ORDERED: DEXTROSE 50% 50 ML VIAL IV PRN (18:55)
[2020-01-27 19:29] LABS: Crystals,Body Fluid NONE SEEN (NONE SEEN)
[2020-01-27] MEDS: SENNOSIDES/DOCUSATE SODIUM 1 TAB TABLET PO SCH (20:35)
[2020-01-27] MEDS: metFORMIN 850 MG TABLET PO SCH (20:35)
[2020-01-27] MEDS: GABAPENTIN 300 MG CAPSULE PO SCH (20:35)
[2020-01-27] MEDS: INSULIN LISPRO 1 UNIT/0.01 ML UNIT SQ SCH (20:36)
[2020-01-27] MEDS: ATORVASTATIN 10 MG TABLET PO SCH (20:36)
[2020-01-27] MEDS: HEPARIN 5,000 UNIT/ML VIAL SQ SCH (20:37)
[2020-01-27] MEDS: 0.9 % SODIUM CHLORIDE 1,000 ML IV SCH (20:37)
[2020-01-27] MEDS: DOCUSATE SODIUM 100 MG CAPSULE PO SCH (21:52)
[2020-01-27] MEDS: 0.9 % SODIUM CHLORIDE 10 ML SYRINGE IV SCH (21:52)
[2020-01-27] MEDS: HYDROcodone/APAP 10/325MG TABLET PO PRN (22:11)
[2020-01-28] MEDS: ACETAMINOPHEN 650 MG/65 ML BOTTLE IV PRN (04:31)
[2020-01-28] MEDS: HYDROmorphone 0.5 MG/0.5 ML SYRINGE IV PRN ×2 (04:36→19:01)
[2020-01-28] MEDS: 0.9 % SODIUM CHLORIDE 10 ML SYRINGE IV SCH ×2 (05:54→13:24)
[2020-01-28 06:02] LABS: Hematocrit 37.7 % (34.1-44.9); Hemoglobin 12.6 g/dL (11.2-15.7); Mean Cell Volume 94.3 fL (80.0-100.0); Mean Corpuscular HGB Conc 33.4 g/dL (31.0-36.0); Mean Platelet Volume 9.7 fL (7.4-10.4); Platelet Count 167 K/mcL (140-440); Red Cell Distribution Width 11.5 % (11.5-14.5); WBC 5.9 K/mcL (4.50-11.00)
[2020-01-28 06:32] LABS: ALT/SGPT 41 U/l (0-40); AST/SGOT 22 U/l (0-37); Albumin 3.3 gm/dL (3.2-5.2); Albumin/Globulin Ratio 1.2 (1.0-2.3); Alkaline Phosphatase 53 U/L (39-117); Bilirubin,Direct < 0.2 mg/dL (0.0-0.3); Bilirubin,Total 0.7 mg/dL (0.0-1.0); Blood Urea Nitrogen 17 mg/dl (8-23); Calcium 8.4 mg/dl (8.6-10.4); Carbon Dioxide 23 mmol/L (22-30); Chloride 99 mmol/L (96-108); Globulin 2.7 gm/dL (2.2-3.7); Glomerular Filtration Rate 54; Glucose 246 mg/dL (70-105); Lactate Dehydrogenase 154 U/L (94-250); Phosphorous 3.5 mg/dL (2.7-4.5); Triglycerides 266 mg/dl (<150); Uric Acid 4.4 mg/dL (2.5-8.0)
[2020-01-28 08:22] LABS: Eosinophils % (Manual) 1 % (0-7); Lymphocytes % 32 % (15-49); Metamyelocytes % 1 % (0-0); Monocytes % (Manual) 10 % (1-12); Platelet Estimate NORMAL (NORMAL); RBC Morphology NORMAL (NORMAL); Segmented Neutrophils % 56 % (38-78)
[2020-01-28] MEDS ORDERED: MELOXICAM 7.5 MG TABLET PO SCH (09:00)
[2020-01-28] MEDS ORDERED: LISINOPRIL/HCTZ 10/12.5MG TABLET PO SCH (09:00)
[2020-01-28] MEDS ORDERED: ASPIRIN 81 MG TAB.CHEW CHEWED SCH (09:00)
[2020-01-28] MEDS ORDERED: MULTIVIT,THER IRON,CA,FA & MIN 1 TABLET PO SCH (09:00)
[2020-01-28] MEDS: VANCOMYCIN 1,500 MG in 0.9 % SODIUM CHLORIDE 500 ML IV SCH ×2 (09:33→23:24)
[2020-01-28] MEDS: LISINOPRIL 10 MG TABLET PO SCH (09:35)
[2020-01-28] MEDS: metFORMIN 850 MG TABLET PO SCH ×3 (09:35→21:30)
[2020-01-28] MEDS: buPROPion 150 MG TAB.XL.24H PO SCH (09:36)
[2020-01-28] MEDS: HYDROCHLOROTHIAZIDE 12.5 MG CAPSULE PO SCH (09:36)
[2020-01-28] MEDS: OXYBUTYNIN CHLORIDE 5 MG TAB.XL.24H PO SCH (09:36)
[2020-01-28] MEDS: GABAPENTIN 300 MG CAPSULE PO SCH ×3 (09:37→21:30)
[2020-01-28] MEDS: MULTIVIT,THER IRON,CA,FA & MIN 1 TABLET PO SCH (09:37)
[2020-01-28] MEDS: INSULIN GLARGINE, HUMAN 1 UNIT/0.01 ML SQ SCH (09:37)
[2020-01-28] MEDS: DOCUSATE SODIUM 100 MG CAPSULE PO SCH ×2 (09:38→21:29)
[2020-01-28] MEDS: HEPARIN 5,000 UNIT/ML VIAL SQ SCH (09:38)
[2020-01-28] MEDS: INSULIN LISPRO 1 UNIT/0.01 ML UNIT SQ SCH ×4 (09:38→21:28)
[2020-01-28] MEDS: HYDROcodone/APAP 10/325MG TABLET PO PRN ×3 (09:51→21:30)
--- NOTE | 2020-01-28 09:53 | Internal Med Progress Note ---
SUBJECTIVE Subjective Patient information: Note initiated : 01/28/20 at 9:51 am Service Date, if different from initiated Date: [] Patient: Jeannie Esposito a 64 y/o F admitted on 01/27/20 for R knee pain x2D. Chief Complaint: [] History of present illness: Ms. Esposito is a 64 year old F with a history of diabetes/hyperlipidemia/HTN anxiety disorder and DJD who presents to the ER with 2 days onset of right lower extremity redness swelling and pain during ambulation and weightbearing. Patient symptoms accompanied with fever. She denies trauma/recent URI, skin infections. She denies recent hospitalization. Initial work-up in the ER included arthrocentesis which revealed purulent aspir ate. Cultures along with Gram stain/joint fluid studies were sent. Orthopedics was consulted and recommended hospitalization for operative intervention in the next 24 hours. Subsequently hospital service was consulted. At the time of my evaluation patient is alert and oriented. She denies heada savita, chest pain, diarrhea, dysuria, nausea, vomiting. She further denies penetrating wound. 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 9/11 -patient awaiting surgery. No overnight events. No concerns per staff. Synovial cell count 55,000 with 88% neutrophils. Patient undergo joint washout today. Continue antibiotic coverage and de-escalate based on cultures once available. Constitutional Vitals: Vital Signs Temp Pulse Resp BP Pulse Ox 97.6 F 60 16 138/58 96 01/28/20 07:01 01/28/20 07:01 01/28/20 07:01 01/28/20 07:01 01/28/20 07:01 Period Temp Pulse Resp BP Sys/Kelley Pulse Ox Last 24 Hr 97.4 F-98.5 F 60-82 -20 112-162/58-88 95-98 Intake and Output 01/27/20 01/28/20 01/28/20 21:59 05:59 13:59 Intake Total 200 665 Output Total 1600 Balance 200 -935 Weight 86.183 kg Alert oriented Right knee swelling warmth and pain Nonlabored breathing No anxiety Intake & Output: Intake & Output 01/27/20 01/28/20 01/28/20 21:59 05:59 13:59 Intake Total 200 665 Output Total 1600 Balance 200 -935 Weight 86.183 kg Intake: IV 200 65 Vancomycin 1,500 mg In Sodium 200 Chloride 0.9% 500 ml @ 333.3 mls/hr IV ONCE ONE Rx#: [id number] Oral 600 Output: Void Amount 1600 Other: Meal egg salad sandwich Percent of Meal Consumed 100% Feeding Ability Independent Urine Appearance Clear Urine Color Bright Yellow Urine Odor Normal # Voids 1 OBJ DATA Labs CBC & Chem 7: 01/28/20 05:15 01/28/20 05:15 Labs: Abnormal Lab Results 01/28/20 01/28/20 01/27/20 05:15 05:15 17:17 Metamyelocytes % 1 H ESR Chloride Glucose 246 H Hemoglobin A1c Calcium 8.4 L GGT 66 H ALT 41 H C-Reactive Protein Triglycerides 266 H Urine Glucose (UA) >=500 A Hyaline Casts 31 H Synovial Neutrophils 01/27/20 01/27/20 01/27/20 16:32 15:49 15:49 Metamyelocytes % ESR 34 H Chloride 95 L Glucose 244 H Hemoglobin A1c 11.5 H Calcium GGT ALT 54 H C-Reactive Protein 17.7 H Triglycerides Urine Glucose (UA) Hyaline Casts Synovial Neutrophils 88 H Meds: Medications Acetaminophen (Tylenol) 650 mg PO Q4-6HP PRN; Protocol PRN Reason: Per Pain Protocol/Fever > 101 Last Admin: 01/27/20 20:45 Dose: 650 mg Documented by: Hydrocodone Bitart/Acetaminophen ([place] 10/325mg) 1 - 2 tab PO Q4HP PRN; Protocol PRN Reason: Pain Last Admin: 01/27/20 22:11 Dose: 1 tab Documented by: Aspirin (Aspirin) 81 mg CHEWED DAILY [facility] Last Admin: 01/28/20 09:38 Dose: Not Given Documented by: Atorvastatin Calcium (Lipitor) 10 mg PO HS [facility] Last Admin: 01/27/20 20:36 Dose: 10 mg Documented by: Bisacodyl (Dulcolax) 10 mg WA Q2-3DAYS PRN PRN Reason: Constipation Bupropion HCl (Wellbutrin Xl) 300 mg PO DAILY [facility] Last Admin: 01/28/20 09:36 Dose: 300 mg Documented by: Dextrose (Dextrose 50%) 0 ml IV UD PRN PRN Reason: Hypoglycemia Diagnostic Test (Pha) (Accu-Chek) 1 each FS ACHS [facility] Last Admin: 01/28/20 07:20 Dose: 1 each Documented by: Docusate Sodium (Colace) 100 mg PO BID [facility] Last Admin: 01/28/20 09:38 Dose: Not Given Documented by: Gabapentin (Neurontin) 300 mg PO TID [facility] Last Admin: 01/28/20 09:37 Dose: 300 mg Documented by: Glucose (Insta-Glucose) 15 gm PO PRN PRN PRN Reason: Hypoglycemia Heparin Sodium (Porcine) (Heparin) 5,000 unit SQ Q12 [facility] Last Admin: 01/28/20 09:38 Dose: Not Given Documented by: Hydrochlorothiazide (Oretic) 12.5 mg PO DAILY [facility] Last Admin: 01/28/20 09:36 Dose: 12.5 mg Documented by: Hydromorphone HCl (Dilaudid) 0.25 - 0.5 mg IV Q4HP PRN; Protocol PRN Reason: Per Pain Protocol Last Admin: 01/28/20 04:36 Dose: 0.5 mg Documented by: Sodium Chloride (Sodium Chloride 0.9%) 1,000 mls @ 50 mls/hr IV .Q20H [facility] Stop: 01/30/20 06:54 Last Admin: 01/27/20 20:37 Dose: 50 mls/hr Documented by: Acetaminophen (Ofirmev) 650 mg in 65 mls @ 130 mls/hr IV Q6HP PRN; Protocol PRN Reason: Per Pain Protocol/Fever > 101 Last Infusion: 01/28/20 05:12 Dose: Infused Documented by: Potassium Chloride 40 meq/ (Dextrose) 520 mls @ 130 mls/hr IV UD PRN PRN Reason: K+ = or < 3.5 Magnesium Sulfate (Magnesium Sulfate) 2 gm in 50 mls @ 50 mls/hr IV UD PRN PRN Reason: MG = or < 1.7 Vancomycin HCl 1,500 mg/ (Sodium Chloride) 500 mls @ 333.3 mls/hr IV Q12H [facility] Last Admin: 01/28/20 09:33 Dose: 333.3 mls/hr Documented by: Cefazolin Sodium 0.5 gm/ (Dextrose) 50 mls @ 100 mls/hr IV ONCE ONE Stop: 01/28/20 10:29 Insulin Glargine (Lantus) 30 unit SQ DAILY [facility] Last Admin: 01/28/20 09:37 Dose: 30 unit Documented by: Insulin Human Lispro (Humalog) 0 unit SQ ACHS [facility]; Protocol Last Admin: 01/28/20 09:38 Dose: 4 units Documented by: Iron Carb/Multivit/[employer]/Folic Acid (Multivitamin W/Minerals) 1 tab PO DAILY [facility] Last Admin: 01/28/20 09:36 Dose: 1 tab Documented by: Iron Carb/Multivit/[place]/Folic Acid (Multivitamin W/Minerals) 1 tab PO DAILY [facility] Last Admin: 01/28/20 09:37 Dose: Not Given Documented by: Lisinopril (Zestril) 10 mg PO DAILY [facility] Last Admin: 01/28/20 09:35 Dose: 10 mg Documented by: Melatonin (Melatonin 3mg Tablet) 3 mg PO HSP PRN PRN Reason: Insomnia Meloxicam (Mobic) 15 mg PO DAILY [facility] Last Admin: 01/28/20 09:35 Dose: 15 mg Documented by: Metformin HCl (Glucophage) 850 mg PO TIDCC [facility] Last Admin: 01/28/20 09:35 Dose: 850 mg Documented by: Ondansetron HCl (Zofran Odt) 4 mg SL Q4-6HP PRN; Protocol PRN Reason: Nausea And Vomiting Ondansetron HCl (Zofran) 4 mg IV Q4-6HP PRN; Protocol PRN Reason: Nausea And Vomiting Oxybutynin Chloride (Ditropan Xl) 10 mg PO DAILY [facility] Last Admin: 01/28/20 09:36 Dose: 10 mg Documented by: Polyethylene Glycol (Miralax) 17 gm PO DAILYP PRN PRN Reason: Constipation Potassium Chloride (Klor-Con) 40 meq PO DAILYP PRN PRN Reason: K+ < 3.5 Senna/Docusate Sodium (Senna Plus Tablet) 1 tab PO HS [facility] Last Admin: 01/27/20 20:35 Dose: Not Given Documented by: Sodium Chloride (Saline Flush) 10 ml IV Q8 [facility] Last Admin: 01/28/20 05:54 Dose: Not Given Documented by: Vancomycin HCl (Vancomycin Per Pharmacy) 1 order IV UD [facility]; Protocol A/P Narrative A/P Narrative: * Right knee prosthetic joint septic arthritis. Arthrocentesis performed. 55,000 cell count/88% neutrophils. Cultures negative. Continue vancomycin . Joint washout today * DM type II continue basal prandial insulin/CC diet * Hypertension continue lisinopril/thiazide * Neuropathy continue gabapentin * Degenerative joint disease continue hydrocodone * Anxiety disorder continue bupropion * prophylaxis Heparin Plan * Review postop * Antibiotic coverage to de-escalate based on joint culture results * Pre-existing medical condition management as above * Keep n.p.o. after midnight * Pain management Time Spent With Patient Time: Total time spent is greater than 50% in coordination of care (as documented) at patient's floor/unit and/or counseling patient: Total time spent with greater than 50% in coordination of care (as documented) at patient's floor/unit and/or counseling patient:: Greater than 35 minutes QUALITY VTE Deep Vein Thrombosis/Pulmonary Embolism Present on Admission: No
[2020-01-28] MEDS ORDERED: DEXTROSE 5% IV ONE (10:00)
[2020-01-28] MEDS ORDERED: WATER IV ONE (10:00)
[2020-01-28] MEDS ORDERED: CEFAZOLIN IV ONE (10:00)
[2020-01-28] MEDS ORDERED: SCOPOLAMINE 1 PATCH PATCH TOPICAL ONE (15:53)
[2020-01-28] MEDS ORDERED: ROPIVACAINE HCL/PF 30 ML VIAL IJ ONE (16:20)
[2020-01-28] MEDS ORDERED: PHENYLEPHRINE 10 MG/ML VIAL ONE (16:20)
[2020-01-28] MEDS ORDERED: ONDANSETRON 4 MG/2 ML VIAL ONE (16:20)
[2020-01-28] MEDS ORDERED: GLYCOPYRROLATE 0.2 MG/ML VIAL IV ONE (16:20)
[2020-01-28] MEDS ORDERED: MIDAZOLAM 2 MG/2 ML VIAL ONE (16:20)
[2020-01-28] MEDS ORDERED: KETAMINE 100 MG/ML ML ONE (16:20)
[2020-01-28] MEDS ORDERED: PROPOFOL 200 MG/20 ML VIAL IV ONE (16:20)
[2020-01-28] MEDS ORDERED: LIDOCAINE HCL/PF 100 MG/5 ML SYRINGE IV ONE (16:20)
[2020-01-28] MEDS ORDERED: fentaNYL 100 MCG/2 ML VIAL IV ONE ×2 (16:20→18:19)
[2020-01-28] MEDS ORDERED: DEXAMETHASONE 10 MG/ML VIAL ONE (16:20)
[2020-01-28] MEDS ORDERED: BENZOCAINE/MENTHOL 1 LOZENGE PO PRN ×2 (16:55→17:32)
[2020-01-28] MEDS ORDERED: MEPERIDINE 25 MG/ML SYRINGE IV PRN (16:55)
[2020-01-28] MEDS ORDERED: KETOROLAC 30 MG/ML VIAL IV PRN (16:55)
[2020-01-28] MEDS ORDERED: METHOCARBAMOL 1,000 MG/10 ML VIAL IV PRN (16:55)
[2020-01-28] MEDS ORDERED: ACETAMINOPHEN 1,000 MG/100 ML BOTTLE IV ONE (16:55)
[2020-01-28] MEDS ORDERED: IPRATROPIUM/ALBUTEROL 3 ML AMPUL.NEB NEB PRN (16:55)
[2020-01-28] MEDS ORDERED: ONDANSETRON 4 MG/2 ML VIAL IV PRN (16:55)
[2020-01-28] MEDS ORDERED: LACTATED RINGERS 1,000 ML IV SCH (17:00)
--- NOTE | 2020-01-28 17:31 | Brief Operative Note ---
Brief Operative Note Date of procedure: 01/28/20 Pre-op diagnosis: right knee septic joint Post-op diagnosis: same Procedure: right knee poly liner exchange and I and D Grafts/Implants: Yes Anesthesia: GETA Complications: none Surgeon: Rodrigo Aparicio Stove Cleaner: Tyler Navarrete Estimated blood loss (cc): 100 Tourniquet Time (Minutes): 30 Specimens Removed/Pathology: none sent Condition: stable Disposition: PACU
[2020-01-28] MEDS ORDERED: POLYETHYLENE GLYCOL 3350 17 GM PACKET PO PRN (17:32)
[2020-01-28] MEDS ORDERED: FLEETS ADULT ENEMA PR PRN (17:32)
[2020-01-28] MEDS ORDERED: TRANEXAMIC ACID 1,000 MG/10 ML VIAL IV ONE ×2 (17:32→18:12)
[2020-01-28] MEDS ORDERED: MAGNESIUM HYDROXIDE 30 ML ORAL.SUSP PO PRN (17:32)
[2020-01-28] MEDS ORDERED: BISACODYL 10 MG SUPP.RECT PR PRN (17:32)
[2020-01-28] MEDS ORDERED: TEMAZEPAM 15 MG CAPSULE PO PRN (17:32)
[2020-01-28] MEDS: fentaNYL 100 MCG/2 ML VIAL IV PRN ×2 (18:16→18:23)
--- NOTE | 2020-01-28 18:31 | XRay Report ---
CLINICAL INFORMATION: Post-Op Total Knee COMPARISON: None. FINDINGS: The prostheses is anatomically aligned. No osseous abnormality. Soft tissue swelling seen as expected IMPRESSION: Negative Interpreted and Authenticated by: Matt Tomas 01/28/20
[2020-01-28] MEDS: 0.45 % SODIUM CHLORIDE 1,000 ML IV SCH (21:29)
[2020-01-28] MEDS: SENNOSIDES 1 TABLET PO SCH (21:29)
[2020-01-28] MEDS: ASPIRIN 325 MG ENTERIC COATED TABLET PO SCH (21:30)
[2020-01-28] MEDS: ATORVASTATIN 10 MG TABLET PO SCH (21:30)
[2020-01-28] MEDS: cefTRIAXone 2 GM in DEXTROSE 5% IN WATER 50 ML IV SCH (22:25)
[2020-01-28] MEDS: ceFAZolin 1 GM VIAL IV SCH (22:26)
[2020-01-29] MEDS: SENNOSIDES/DOCUSATE SODIUM 1 TAB TABLET PO SCH ×2 (00:04→20:45)
[2020-01-29] MEDS: HYDROmorphone 0.5 MG/0.5 ML SYRINGE IV PRN ×3 (00:07→12:37)
[2020-01-29] MEDS: 0.9 % SODIUM CHLORIDE 10 ML SYRINGE IV SCH ×8 (00:13→21:04)
[2020-01-29] MEDS: 0.9 % SODIUM CHLORIDE 1,000 ML IV SCH (00:47)
[2020-01-29] MEDS: 0.45 % SODIUM CHLORIDE 1,000 ML IV SCH ×3 (05:43→14:54)
[2020-01-29 06:49] LABS: Hematocrit 35.6 % (34.1-44.9); Hemoglobin 11.8 g/dL (11.2-15.7); Mean Cell Volume 94.7 fL (80.0-100.0); Mean Corpuscular HGB Conc 33.1 g/dL (31.0-36.0); Mean Platelet Volume 9.7 fL (7.4-10.4); Platelet Count 184 K/mcL (140-440); RBC 3.76 M/mcL (3.59-5.38); Red Cell Distribution Width 11.5 % (11.5-14.5); WBC 9.8 K/mcL (4.50-11.00)
[2020-01-29 07:14] LABS: ALT/SGPT 55 U/l (0-40); AST/SGOT 38 U/l (0-37); Albumin 3.2 gm/dL (3.2-5.2); Albumin/Globulin Ratio 1.1 (1.0-2.3); Alkaline Phosphatase 51 U/L (39-117); Bilirubin,Direct < 0.2 mg/dL (0.0-0.3); Bilirubin,Total 0.5 mg/dL (0.0-1.0); Blood Urea Nitrogen 18 mg/dl (8-23); Carbon Dioxide 23 mmol/L (22-30); Chloride 98 mmol/L (96-108); Globulin 2.8 gm/dL (2.2-3.7); Glomerular Filtration Rate 60; Glucose 390 mg/dL (70-105); Lactate Dehydrogenase 219 U/L (94-250); Phosphorous 4.2 mg/dL (2.7-4.5); Triglycerides 99 mg/dl (<150); Uric Acid 5.3 mg/dL (2.5-8.0)
[2020-01-29 07:46] LABS: Lymphocytes % 11 % (15-49); Monocytes % (Manual) 4 % (1-12); Platelet Estimate NORMAL (NORMAL); RBC Morphology NORMAL (NORMAL); Reactive Lymphocytes 1 % (0-2); Segmented Neutrophils % 84 % (38-78)
--- NOTE | 2020-01-29 08:19 | Orthopedic Progress Note ---
SUBJECTIVE Subjective Patient information: Note initiated : 01/29/20 at 8:09 am Service Date, if different from initiated Date: [] Patient: Jeannie Esposito 64 y/o F admitted on 01/27/20 for R knee pain x2D. She is POD#1 s/p right infected TKA washout with Dr. Aparicio. Overall doing well this AM. Denies new complaints including CP, SOB, fevers/chills, N/V. Chief Complaint: right knee pain. Constitutional Vitals: Vital Signs Temp Pulse Resp BP Pulse Ox 97.8 F 70 18 109/66 97 01/29/20 08:00 01/29/20 08:00 01/29/20 08:00 01/29/20 08:00 01/29/20 08:00 Period Temp Pulse Resp BP Sys/Kelley Pulse Ox Last 24 Hr 97.5 F-98.6 F 64-95 13-20 109-139/59-83 87-100 Intake and Output 01/28/20 01/29/20 01/29/20 21:59 05:59 13:59 Intake Total 1100 2049 Output Total 300 1950 Balance 800 100 Weight 195 lb 190 lb Intake & Output: Intake & Output 01/28/20 01/29/20 01/29/20 21:59 05:59 13:59 Intake Total 1100 2049 Output Total 300 1950 Balance 800 100 Weight 195 lb 190 lb Intake: IV 100 550 Vancomycin 1,500 mg In Sodium 500 Chloride 0.9% 500 ml @ 333.3 mls/hr IV Q12H [facility] Rx#: [id number] Rocephin 2 gm In Dextrose 5% in 50 Water 50 ml @ 100 mls/hr IV Q24H [facility] Rx#:[id number] Oral 1500 IV - Manual Only 1000 Output: Void Amount 300 1950 Other: Meal Dinner Percent of Meal Consumed 100% Feeding Ability Independent Urine Appearance Clear Clear Urine Color Dark Yellow Bright Yellow Urine Odor Normal Neurological Exam Neurological exam: Present alert Skin Skin exam: Present intact and warm OBJ DATA Labs CBC & Chem 7: 01/29/20 05:10 01/29/20 05:10 Labs: Abnormal Lab Results 01/29/20 01/29/20 01/28/20 05:10 05:10 05:15 Seg Neutrophils % 84 H Lymphocytes % 11 L Metamyelocytes % ESR Chloride Glucose 390 H 246 H Hemoglobin A1c Calcium 8.4 L GGT 78 H 66 H AST 38 H ALT 55 H 41 H C-Reactive Protein Triglycerides 266 H Urine Glucose (UA) Hyaline Casts Synovial Neutrophils 01/28/20 01/27/20 01/27/20 05:15 17:17 16:32 Seg Neutrophils % Lymphocytes % Metamyelocytes % 1 H ESR Chloride Glucose Hemoglobin A1c Calcium GGT AST ALT C-Reactive Protein Triglycerides Urine Glucose (UA) >=500 A Hyaline Casts 31 H Synovial Neutrophils 88 H 01/27/20 01/27/20 15:49 15:49 Seg Neutrophils % Lymphocytes % Metamyelocytes % ESR 34 H Chloride 95 L Glucose 244 H Hemoglobin A1c 11.5 H Calcium GGT AST ALT 54 H C-Reactive Protein 17.7 H Triglycerides Urine Glucose (UA) Hyaline Casts Synovial Neutrophils Meds: Medications Acetaminophen (Tylenol) 650 mg PO Q6HP PRN PRN Reason: PAIN/FEVER > 101 Hydrocodone Bitart/Acetaminophen ([place] 10/325mg) 0 tab PO Q4HP PRN PRN Reason: PAIN LEVEL 3-6 Last Admin: 01/28/20 21:30 Dose: 2 tab Documented by: Aspirin (Ecotrin) 325 mg PO BID [facility] Last Admin: 01/28/20 21:30 Dose: 325 mg Documented by: Atorvastatin Calcium (Lipitor) 10 mg PO HS [facility] Last Admin: 01/28/20 21:30 Dose: 10 mg Documented by: Bisacodyl (Dulcolax) 10 mg OH Q2-3DAYS PRN PRN Reason: Constipation Bupropion HCl (Wellbutrin Xl) 300 mg PO DAILY [facility] Last Admin: 01/28/20 09:36 Dose: 300 mg Documented by: Dextrose (Dextrose 50%) 0 ml IV UD PRN PRN Reason: Hypoglycemia Diagnostic Test (Pha) (Accu-Chek) 1 each FS ACHS [facility] Last Admin: 01/28/20 19:12 Dose: 1 each Documented by: Docusate Sodium (Colace) 100 mg PO BID [facility] Last Admin: 01/28/20 21:29 Dose: 100 mg Documented by: Gabapentin (Neurontin) 300 mg PO TID [facility] Last Admin: 01/28/20 21:30 Dose: 300 mg Documented by: Glucose (Insta-Glucose) 15 gm PO PRN PRN PRN Reason: Hypoglycemia Hydrochlorothiazide (Oretic) 12.5 mg PO DAILY [facility] Last Admin: 01/28/20 09:36 Dose: 12.5 mg Documented by: Hydromorphone HCl (Dilaudid) 0.25 - 0.5 mg IV Q4HP PRN; Protocol PRN Reason: Per Pain Protocol Last Admin: 01/29/20 00:07 Dose: 0.5 mg Documented by: Acetaminophen (Ofirmev) 650 mg in 65 mls @ 130 mls/hr IV Q6HP PRN; Protocol PRN Reason: Per Pain Protocol/Fever > 101 Last Infusion: 01/28/20 05:12 Dose: Infused Documented by: Potassium Chloride 40 meq/ (Dextrose) 520 mls @ 130 mls/hr IV UD PRN PRN Reason: K+ = or < 3.5 Magnesium Sulfate (Magnesium Sulfate) 2 gm in 50 mls @ 50 mls/hr IV UD PRN PRN Reason: MG = or < 1.7 Vancomycin HCl 1,500 mg/ (Sodium Chloride) 500 mls @ 333.3 mls/hr IV Q12H [facility] Last Infusion: 01/29/20 01:00 Dose: Infused Documented by: Ceftriaxone Sodium 2 gm/ (Dextrose) 50 mls @ 100 mls/hr IV Q24H [facility]; Protocol Last Infusion: 01/28/20 23:02 Dose: Infused Documented by: Sodium Chloride (Sodium Chloride 0.45%) 1,000 mls @ 100 mls/hr IV .Q10H [facility] Last Admin: 01/29/20 05:43 Dose: Not Given Documented by: Insulin Glargine (Lantus) 30 unit SQ DAILY [facility] Last Admin: 01/28/20 09:37 Dose: 30 unit Documented by: Insulin Human Lispro (Humalog) 0 unit SQ ACHS [facility]; Protocol Last Admin: 01/28/20 21:28 Dose: 2 units Documented by: Iron Carb/Multivit/[place]/Folic Acid (Multivitamin W/Minerals) 1 tab PO DAILY [facility] Last Admin: 01/28/20 09:37 Dose: Not Given Documented by: Ketorolac Tromethamine (Toradol) 15 mg IV Q6HP PRN PRN Reason: pain Lisinopril (Zestril) 10 mg PO DAILY [facility] Last Admin: 01/28/20 09:35 Dose: 10 mg Documented by: Magnesium Hydroxide (Milk Of Magnesia) 30 ml PO BIDP PRN PRN Reason: Constipation Melatonin (Melatonin 3mg Tablet) 3 mg PO HSP PRN PRN Reason: Insomnia Metformin HCl (Glucophage) 850 mg PO TIDCC [facility] Last Admin: 01/28/20 21:30 Dose: 850 mg Documented by: Ondansetron HCl (Zofran Odt) 4 mg SL Q4-6HP PRN; Protocol PRN Reason: Nausea And Vomiting Ondansetron HCl (Zofran) 4 mg IV Q4HP PRN PRN Reason: Nausea And Vomiting Oxybutynin Chloride (Ditropan Xl) 10 mg PO DAILY [facility] Last Admin: 01/28/20 09:36 Dose: 10 mg Documented by: Polyethylene Glycol (Miralax) 17 gm PO DAILYP PRN PRN Reason: Constipation Potassium Chloride (Klor-Con) 40 meq PO DAILYP PRN PRN Reason: K+ < 3.5 Senna (Senokot) 1 tab PO [facility] Last Admin: 01/28/20 21:29 Dose: 1 tab Documented by: Senna/Docusate Sodium (Senna Plus Tablet) 1 tab PO [facility] Last Admin: 01/29/20 00:04 Dose: Not Given Documented by: Sodium Biphosphate/Sodium Phosphate (Fleets Adult) 1 dose OH Q3-4DAYS PRN PRN Reason: Constipation Sodium Chloride (Saline Flush) 10 ml IV Q8 [facility] Last Admin: 01/29/20 05:44 Dose: Not Given Documented by: Sodium Chloride (Saline Flush) 10 ml IV Q8 [facility] Last Admin: 01/29/20 05:44 Dose: Not Given Documented by: Throat Lozenges (Cepacol) 1 lozenge PO PRN PRN PRN Reason: Sore Throat Last Admin: 01/29/20 04:40 Dose: 1 lozenge Documented by: Vancomycin HCl (Vancomycin Per Pharmacy) 1 order IV [facility]; Protocol A/P Assessment and plan (1) Infected prosthetic knee joint: Status: Acute Comment: Pt is a 64 yo female POD #1 s/p right septic knee TKA washout. --blood cultures remain pending--continue vancomycin and abx management per hospitalist. --PT/OT: WBAT right lower extremity. --continue pain medications. --continue insulin/CC diet. --prophy: Heparin, scds, IS. --dispo: home pending cultures results and appropriate abx. Pt lives in [place]--will likely receive tx in [place]. (2) Hx of total knee arthroplasty: Status: Acute Extremities Extremities Right lower extremity: normal to inspection, normal capillary refill and knee; No cyanosis Details: silver dressing in place. It is clean, dry, intact. No pain with passive calf stretch bilaterally.
[2020-01-29] MEDS: HYDROcodone/APAP 10/325MG TABLET PO PRN ×4 (08:28→21:47)
[2020-01-29] MEDS: INSULIN LISPRO 1 UNIT/0.01 ML UNIT SQ SCH ×4 (08:28→20:44)
[2020-01-29] MEDS: GABAPENTIN 300 MG CAPSULE PO SCH ×3 (08:29→20:16)
[2020-01-29] MEDS: MULTIVIT,THER IRON,CA,FA & MIN 1 TABLET PO SCH (08:29)
[2020-01-29] MEDS: DOCUSATE SODIUM 100 MG CAPSULE PO SCH ×2 (08:29→20:16)
[2020-01-29] MEDS: OXYBUTYNIN CHLORIDE 5 MG TAB.XL.24H PO SCH (08:29)
[2020-01-29] MEDS: ASPIRIN 325 MG ENTERIC COATED TABLET PO SCH ×2 (08:29→20:16)
[2020-01-29] MEDS: LISINOPRIL 10 MG TABLET PO SCH (08:29)
[2020-01-29] MEDS: metFORMIN 850 MG TABLET PO SCH ×3 (08:29→17:11)
[2020-01-29] MEDS: HYDROCHLOROTHIAZIDE 12.5 MG CAPSULE PO SCH (08:29)
[2020-01-29] MEDS: buPROPion 150 MG TAB.XL.24H PO SCH (08:30)
[2020-01-29] MEDS: cefTRIAXone 2 GM in DEXTROSE 5% IN WATER 50 ML IV SCH (08:30)
[2020-01-29] MEDS: INSULIN GLARGINE, HUMAN 1 UNIT/0.01 ML SQ SCH (08:44)
--- NOTE | 2020-01-29 09:06 | XRay Report ---
CLINICAL INFORMATION: Cough COMPARISON: None. TECHNIQUE: Portable FINDINGS: The heart size, mediastinum and pulmonary vessels are unremarkable. The lungs are clear. There are no effusions. The bones and soft tissues are within normal limits. IMPRESSION: Normal chest. Interpreted and Authenticated by: Matt Tomas 01/29/20
[2020-01-29] MEDS ORDERED: ceFAZolin 1 GM VIAL IV SCH (09:15)
[2020-01-29] MEDS: ceFAZolin 1 GM VIAL IV SCH (10:32)
[2020-01-29] MEDS: VANCOMYCIN 1,500 MG in 0.9 % SODIUM CHLORIDE 500 ML IV SCH ×2 (10:33→20:15)
--- NOTE | 2020-01-29 11:35 | Internal Med Progress Note ---
SUBJECTIVE Subjective Patient information: Note initiated : 01/29/20 at 11:33 am Service Date, if different from initiated Date: [] Patient: Jeannie Esposito 64 y/o F admitted on 01/27/20 for R knee pain x2D. Chief Complaint: History of present illness: Ms. Esposito is a 64 year old F with a history of diabetes/hyperlipidemia/HTN anxiety disorder and DJD who presents to the ER with 2 days onset of right lower extremity redness swelling and pain during ambulation and weightbearing. Patient symptoms accompanied with fever. She denies trauma/recent URI, skin infections. She denies recent hospitalization. Initial work-up in the ER included arthrocentesis which revealed purulent aspirate. Cultures along with Gram stain/joint fluid studies were sent. Orthopedics was consulted and recommended hospitalization for operative intervention in the next 24 hours. Subsequently hospital service was consulted. At the time of my evaluation patient is alert and oriented. She denies headach e, chest pain, diarrhea, dysuria, nausea, vomiting. She further denies penetrating wound. 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 01/27 -patient awaiting surgery. No overnight events. No concerns per staff. Synovial cell count 55,000 with 88% neutrophils. Patient undergo joint washout today. Continue antibiotic coverage and de-escalate based on cultures once available. 01/28-patient postop day 1. Doing well. On antibiotic coverage. Cultures negative so far. Afebrile. White count 9.8. A1c 11.5. Elevated blood sugars. Constitutional Vitals: Vital Signs Temp Pulse Resp BP Pulse Ox 97.8 F 70 18 109/66 96 01/29/20 08:00 01/29/20 08:00 01/29/20 08:00 01/29/20 08:00 01/29/20 09:00 Period Temp Pulse Resp BP Sys/Kelley Pulse Ox Last 24 Hr 97.5 F-98.6 F 64-95 13-20 109-139/59-83 87-100 Intake and Output 01/28/20 01/29/20 01/29/20 21:59 05:59 13:59 Intake Total 1100 2050 1420 Output Total 300 1950 250 Balance 046 390 2949 Weight 88.451 kg 86.183 kg alert oriented No anxiety Nonlabored breathing No significant postoperative swelling or pain Intake & Output: Intake & Output 01/28/20 01/29/20 01/29/20 21:59 05:59 13:59 Intake Total 1100 2050 1420 Output Total 300 1950 250 Balance 957 336 3839 Weight 88.451 kg 86.183 kg Intake: IV 955 577 1742 Sodium Chloride 0.45% 1,000 ml 1000 @ 100 mls/hr IV .Q10H [facility] Rx#: [id number] Vancomycin 1,500 mg In Sodium 500 Chloride 0.9% 500 ml @ 333.3 mls/hr IV Q12H [facility] Rx#: [id number] Rocephin 2 gm In Dextrose 5% in 50 Water 50 ml @ 100 mls/hr IV Q24H [facility] Rx#:[id number] Oral 1500 420 IV - Manual Only 1000 Output: Void Amount 300 1950 250 Other: Meal Dinner Breakfast Percent of Meal Consumed 100% 100% Feeding Ability Independent Urine Appearance Clear Clear Clear Urine Color Dark Yellow Bright Yellow Bright Yellow Urine Odor Normal OBJ DATA Labs CBC & Chem 7: 01/29/20 05:10 01/29/20 05:10 Labs: Abnormal Lab Results 01/29/20 01/29/20 01/28/20 05:10 05:10 05:15 Seg Neutrophils % 84 H Lymphocytes % 11 L Metamyelocytes % ESR Chloride Glucose 390 H 246 H Hemoglobin A1c Calcium 8.4 L GGT 78 H 66 H AST 38 H ALT 55 H 41 H C-Reactive Protein Triglycerides 266 H Urine Glucose (UA) Hyaline Casts Synovial Neutrophils 01/28/20 01/27/20 01/27/20 05:15 17:17 16:32 Seg Neutrophils % Lymphocytes % Metamyelocytes % 1 H ESR Chloride Glucose Hemoglobin A1c Calcium GGT AST ALT C-Reactive Protein Triglycerides Urine Glucose (UA) >=500 A Hyaline Casts 31 H Synovial Neutrophils 88 H 01/27/20 01/27/20 15:49 15:49 Seg Neutrophils % Lymphocytes % Metamyelocytes % ESR 34 H Chloride 95 L Glucose 244 H Hemoglobin A1c 11.5 H Calcium GGT AST ALT 54 H C-Reactive Protein 17.7 H Triglycerides Urine Glucose (UA) Hyaline Casts Synovial Neutrophils Meds: Medications Acetaminophen (Tylenol) 650 mg PO Q6HP PRN PRN Reason: PAIN/FEVER > 101 Hydrocodone Bitart/Acetaminophen ([place] 10/325mg) 0 tab PO Q4HP PRN PRN Reason: PAIN LEVEL 3-6 Last Admin: 01/29/20 08:28 Dose: 2 tab Documented by: Aspirin (Ecotrin) 325 mg PO BID [facility] Last Admin: 01/29/20 08:29 Dose: 325 mg Documented by: Atorvastatin Calcium (Lipitor) 10 mg PO HS [facility] Last Admin: 01/28/20 21:30 Dose: 10 mg Documented by: Bisacodyl (Dulcolax) 10 mg SD Q2-3DAYS PRN PRN Reason: Constipation Bupropion HCl (Wellbutrin Xl) 300 mg PO DAILY [facility] Last Admin: 01/29/20 08:30 Dose: 300 mg Documented by: Dextrose (Dextrose 50%) 0 ml IV UD PRN PRN Reason: Hypoglycemia Diagnostic Test (Pha) (Accu-Chek) 1 each FS ACHS [facility] Last Admin: 01/29/20 08:28 Dose: 1 each Documented by: Docusate Sodium (Colace) 100 mg PO BID [facility] Last Admin: 01/29/20 08:29 Dose: 100 mg Documented by: Gabapentin (Neurontin) 300 mg PO TID [facility] Last Admin: 01/29/20 08:29 Dose: 300 mg Documented by: Glucose (Insta-Glucose) 15 gm PO PRN PRN PRN Reason: Hypoglycemia Hydrochlorothiazide (Oretic) 12.5 mg PO DAILY [facility] Last Admin: 01/29/20 08:29 Dose: 12.5 mg Documented by: Hydromorphone HCl (Dilaudid) 0.25 - 0.5 mg IV Q4HP PRN; Protocol PRN Reason: Per Pain Protocol Last Admin: 01/29/20 08:43 Dose: 0.25 mg Documented by: Acetaminophen (Ofirmev) 650 mg in 65 mls @ 130 mls/hr IV Q6HP PRN; Protocol PRN Reason: Per Pain Protocol/Fever > 101 Last Infusion: 01/28/20 05:12 Dose: Infused Documented by: Potassium Chloride 40 meq/ (Dextrose) 520 mls @ 130 mls/hr IV UD PRN PRN Reason: K+ = or < 3.5 Magnesium Sulfate (Magnesium Sulfate) 2 gm in 50 mls @ 50 mls/hr IV UD PRN PRN Reason: MG = or < 1.7 Vancomycin HCl 1,500 mg/ (Sodium Chloride) 500 mls @ 333.3 mls/hr IV Q12H [facility] Last Admin: 01/29/20 10:33 Dose: 333 mls/hr Documented by: Ceftriaxone Sodium 2 gm/ (Dextrose) 50 mls @ 100 mls/hr IV Q24H [facility]; Protocol Last Admin: 01/29/20 08:30 Dose: 100 mls/hr Documented by: Sodium Chloride (Sodium Chloride 0.45%) 1,000 mls @ 100 mls/hr IV .Q10H [facility] Last Admin: 01/29/20 10:34 Dose: 100 mls/hr Documented by: Insulin Glargine (Lantus) 30 unit SQ DAILY [facility] Last Admin: 01/29/20 08:44 Dose: 30 unit Documented by: Insulin Human Lispro (Humalog) 0 unit SQ ACHS [facility]; Protocol Last Admin: 01/29/20 08:28 Dose: 4 units Documented by: Iron Carb/Multivit/[place]/Folic Acid (Multivitamin W/Minerals) 1 tab PO DAILY [facility] Last Admin: 01/29/20 08:29 Dose: 1 tab Documented by: Ketorolac Tromethamine (Toradol) 15 mg IV Q6HP PRN PRN Reason: pain Lisinopril (Zestril) 10 mg PO DAILY [facility] Last Admin: 01/29/20 08:29 Dose: 10 mg Documented by: Magnesium Hydroxide (Milk Of Magnesia) 30 ml PO BIDP PRN PRN Reason: Constipation Melatonin (Melatonin 3mg Tablet) 3 mg PO HSP PRN PRN Reason: Insomnia Metformin HCl (Glucophage) 850 mg PO TIDCC [facility] Last Admin: 01/29/20 08:29 Dose: 850 mg Documented by: Ondansetron HCl (Zofran Odt) 4 mg SL Q4-6HP PRN; Protocol PRN Reason: Nausea And Vomiting Ondansetron HCl (Zofran) 4 mg IV Q4HP PRN PRN Reason: Nausea And Vomiting Oxybutynin Chloride (Ditropan Xl) 10 mg PO DAILY [facility] Last Admin: 01/29/20 08:29 Dose: 10 mg Documented by: Polyethylene Glycol (Miralax) 17 gm PO DAILYP PRN PRN Reason: Constipation Potassium Chloride (Klor-Con) 40 meq PO DAILYP PRN PRN Reason: K+ < 3.5 Senna (Senokot) 1 tab PO HS [facility] Last Admin: 01/28/20 21:29 Dose: 1 tab Documented by: Senna/Docusate Sodium (Senna Plus Tablet) 1 tab PO HS [facility] Last Admin: 01/29/20 00:04 Dose: Not Given Documented by: Sodium Biphosphate/Sodium Phosphate (Fleets Adult) 1 dose SD Q3-4DAYS PRN PRN Reason: Constipation Sodium Chloride (Saline Flush) 10 ml IV Q8 [facility] Last Admin: 01/29/20 05:44 Dose: Not Given Documented by: Sodium Chloride (Saline Flush) 10 ml IV Q8 [facility] Last Admin: 01/29/20 05:44 Dose: Not Given Documented by: Throat Lozenges (Cepacol) 1 lozenge PO PRN PRN PRN Reason: Sore Throat Last Admin: 01/29/20 04:40 Dose: 1 lozenge Documented by: Vancomycin HCl (Vancomycin Per Pharmacy) 1 order IV UD [facility]; Protocol A/P Assessment and plan (1) Infected prosthetic knee joint: Status: Acute Comment: Pt is a 64 yo female POD #1 s/p right septic knee TKA washout. --blood cultures remain pending--continue vancomycin and abx management per hospitalist. --PT/OT: WBAT right lower extremity. --continue pain medications. --continue insulin/CC diet. --prophy: Heparin, scds, IS. --dispo: home pending cultures results and appropriate abx. Pt lives in [place]--will likely receive tx in [place]. (2) Hx of total knee arthroplasty: Status: Acute Narrative A/P Narrative: * Right knee prosthetic joint septic arthritis. Postop day 1. Arthrocentesis fluid 55,000 cell count/88% neutrophils. Cultures negative so far. Continue vancomycin/Rocephin. Postop management per orthopedics * Poorly controlled DM type II , uptitrate basal prandial insulin/CC diet * Hypertension continue lisinopril/thiazide * Neuropathy continue gabapentin * Degenerative joint disease continue hydrocodone * Anxiety disorder continue bupropion * prophylaxis Heparin Plan * Continue vancomycin Rocephin * Continue pre-existing medical condition management as above * Uptitrate basal insulin * PT OT nutrition support Time Spent With Patient Time: Total time spent is greater than 50% in coordination of care (as documented) at patient's floor/unit and/or counseling patient: QUALITY VTE Deep Vein Thrombosis/Pulmonary Embolism Present on Admission: No
[2020-01-29] MEDS: sitaGLIPtin 100 MG TABLET PO SCH (15:17)
[2020-01-29] MEDS: ACETAMINOPHEN 650 MG/65 ML BOTTLE IV PRN (15:17)
[2020-01-29] MEDS: KETOROLAC 15 MG/ML VIAL IV PRN ×2 (15:33→23:06)
[2020-01-29] MEDS: GLIMEPIRIDE 2 MG TABLET PO SCH (17:13)
[2020-01-29] MEDS: ATORVASTATIN 10 MG TABLET PO SCH (20:15)
[2020-01-29] MEDS: SENNOSIDES 1 TABLET PO SCH (20:16)
[2020-01-30] MEDS: 0.45 % SODIUM CHLORIDE 1,000 ML IV SCH (00:03)
[2020-01-30] MEDS: HYDROcodone/APAP 10/325MG TABLET PO PRN ×5 (03:19→20:47)
[2020-01-30] MEDS: 0.9 % SODIUM CHLORIDE 10 ML SYRINGE IV SCH ×6 (05:08→20:49)
[2020-01-30 05:43] LABS: Hematocrit 35.6 % (34.1-44.9); Hemoglobin 11.6 g/dL (11.2-15.7); Mean Corpuscular HGB Conc 32.6 g/dL (31.0-36.0); Mean Platelet Volume 9.7 fL (7.4-10.4); Platelet Count 167 K/mcL (140-440); RBC 3.71 M/mcL (3.59-5.38); Red Cell Distribution Width 11.9 % (11.5-14.5); WBC 8.1 K/mcL (4.50-11.00)
[2020-01-30 06:16] LABS: ALT/SGPT 150 U/l (0-40); AST/SGOT 175 U/l (0-37); Albumin 3.1 gm/dL (3.2-5.2); Albumin/Globulin Ratio 1.1 (1.0-2.3); Alkaline Phosphatase 71 U/L (39-117); Bilirubin,Direct < 0.2 mg/dL (0.0-0.3); Bilirubin,Total 0.4 mg/dL (0.0-1.0); Blood Urea Nitrogen 23 mg/dl (8-23); Calcium 8.3 mg/dl (8.6-10.4); Carbon Dioxide 23 mmol/L (22-30); Chloride 97 mmol/L (96-108); Globulin 2.7 gm/dL (2.2-3.7); Glucose 249 mg/dL (70-105); Lactate Dehydrogenase 305 U/L (94-250); Phosphorous 3.6 mg/dL (2.7-4.5); Triglycerides 146 mg/dl (<150); Uric Acid 5.7 mg/dL (2.5-8.0)
[2020-01-30 06:17] LABS: Glomerular Filtration Rate 44
[2020-01-30 06:43] LABS: Eosinophils % (Manual) 1 % (0-7); Lymphocytes % 20 % (15-49); Monocytes % (Manual) 7 % (1-12); Platelet Estimate NORMAL (NORMAL); RBC Morphology NORMAL (NORMAL); Segmented Neutrophils % 72 % (38-78)
[2020-01-30] MEDS: GLIMEPIRIDE 2 MG TABLET PO SCH ×2 (07:28→18:01)
[2020-01-30] MEDS: cefTRIAXone 2 GM in DEXTROSE 5% IN WATER 50 ML IV SCH (07:37)
[2020-01-30] MEDS: buPROPion 150 MG TAB.XL.24H PO SCH (08:20)
[2020-01-30] MEDS: INSULIN LISPRO 1 UNIT/0.01 ML UNIT SQ SCH ×4 (08:20→20:48)
[2020-01-30] MEDS: OXYBUTYNIN CHLORIDE 5 MG TAB.XL.24H PO SCH (08:20)
[2020-01-30] MEDS: HYDROCHLOROTHIAZIDE 12.5 MG CAPSULE PO SCH (08:20)
[2020-01-30] MEDS: GABAPENTIN 300 MG CAPSULE PO SCH ×3 (08:21→20:48)
[2020-01-30] MEDS: DOCUSATE SODIUM 100 MG CAPSULE PO SCH ×3 (08:21→21:04)
[2020-01-30] MEDS: LISINOPRIL 10 MG TABLET PO SCH (08:21)
[2020-01-30] MEDS: sitaGLIPtin 100 MG TABLET PO SCH (08:21)
[2020-01-30] MEDS: ASPIRIN 325 MG ENTERIC COATED TABLET PO SCH ×2 (08:21→20:47)
[2020-01-30] MEDS: metFORMIN 850 MG TABLET PO SCH ×3 (08:21→18:02)
[2020-01-30] MEDS: MULTIVIT,THER IRON,CA,FA & MIN 1 TABLET PO SCH (08:21)
[2020-01-30] MEDS: INSULIN GLARGINE, HUMAN 1 UNIT/0.01 ML SQ SCH (08:22)
[2020-01-30] MEDS: VANCOMYCIN 1,500 MG in 0.9 % SODIUM CHLORIDE 500 ML IV SCH (09:40)
[2020-01-30] MEDS: VANCOMYCIN 1,000 MG in 0.9 % SODIUM CHLORIDE 250 ML IV SCH ×2 (09:45→20:49)
--- NOTE | 2020-01-30 09:56 | Orthopedic Progress Note ---
SUBJECTIVE Subjective Patient information: Note initiated : 01/30/20 at 9:49 am Service Date, if different from initiated Date: [] Patient: Jeannie Esposito 64 y/o F admitted on 01/27/20 for R knee pain x2D. She is POD#2 s/p right septic TKA washout with Dr. Aparicio. Denies SOB, CP, fevers/chills, N/V. Has been up ambulating. Denies new complaints this AM. Admits to pain in the right knee but states it is managed. Chief Complaint: right knee pain. Constitutional Vitals: Vital Signs Temp Pulse Resp BP Pulse Ox 97.6 F 60 12 126/76 95 01/30/20 07:16 01/30/20 07:16 01/30/20 07:16 01/30/20 07:16 01/30/20 09:00 Period Temp Pulse Resp BP Sys/Kelley Pulse Ox Last 24 Hr 97.3 F-98.6 F 60-85 - 94-128/56-76 94-98 Intake and Output 01/29/20 01/30/20 01/30/20 21:59 05:59 13:59 Intake Total 2655 1000 50 Output Total 800 200 400 Balance 1855 800 -350 Weight 205 lb 8 oz Intake & Output: Intake & Output 01/29/20 01/30/20 01/30/20 21:59 05:59 13:59 Intake Total 2655 1000 50 Output Total 800 200 400 Balance 1855 800 -350 Weight 205 lb 8 oz Intake: IV 1115 500 50 Sodium Chloride 0.45% 1,000 ml 1000 @ 100 mls/hr IV .Q10H [facility] Rx#: [id number] Vancomycin 1,500 mg In Sodium 500 Chloride 0.9% 500 ml @ 333.3 mls/hr IV Q12H [facility] Rx#: [id number] Rocephin 2 gm In Dextrose 5% in 50 50 Water 50 ml @ 100 mls/hr IV Q24H [facility] Rx#:[id number] Oral 1540 500 Output: Void Amount 800 200 400 Other: Meal Dinner Percent of Meal Consumed 100% Feeding Ability Independent Urine Appearance Clear Clear Urine Color Bright Yellow Head Head exam: Present atraumatic and normal inspection Eye Eye exam: Present normal appearance ENT ENT exam: Present mucous membranes moist, normal exam and normal external ear exam Neck Neck exam: Present normal inspection Respiratory Respiratory exam: Present normal respiratory exam Cardiovascular Cardiovascular exam: Present normal rate and rhythm GI/Abdominal GI/Abdominal exam: Present normal bowel sounds Back Exam Back exam: Present normal inspection Neurological Exam Neurological exam: Present alert and oriented X3 Skin Skin exam: Present intact and warm OBJ DATA Labs CBC & Chem 7: 01/30/20 04:51 01/30/20 04:51 Labs: Abnormal Lab Results 01/30/20 01/29/20 01/29/20 04:51 05:10 05:10 Seg Neutrophils % 84 H Lymphocytes % 11 L Metamyelocytes % ESR Chloride Creatinine 1.3 H Glucose 249 H 390 H Hemoglobin A1c Calcium 8.3 L GGT 158 H 78 H AST 175 H 38 H ALT 150 H 55 H Lactate Dehydrogenase 305 H C-Reactive Protein Total Protein 5.8 L Albumin 3.1 L Triglycerides Urine Glucose (UA) Hyaline Casts Synovial Neutrophils 01/28/20 01/28/20 01/27/20 05:15 05:15 17:17 Seg Neutrophils % Lymphocytes % Metamyelocytes % 1 H ESR Chloride Creatinine Glucose 246 H Hemoglobin A1c Calcium 8.4 L GGT 66 H AST ALT 41 H Lactate Dehydrogenase C-Reactive Protein Total Protein Albumin Triglycerides 266 H Urine Glucose (UA) >=500 A Hyaline Casts 31 H Synovial Neutrophils 01/27/20 01/27/20 01/27/20 16:32 15:49 15:49 Seg Neutrophils % Lymphocytes % Metamyelocytes % ESR 34 H Chloride 95 L Creatinine Glucose 244 H Hemoglobin A1c 11.5 H Calcium GGT AST ALT 54 H Lactate Dehydrogenase C-Reactive Protein 17.7 H Total Protein Albumin Triglycerides Urine Glucose (UA) Hyaline Casts Synovial Neutrophils 88 H Meds: Medications Acetaminophen (Tylenol) 650 mg PO Q6HP PRN PRN Reason: PAIN/FEVER > 101 Hydrocodone Bitart/Acetaminophen ([place] 10/325mg) 0 tab PO Q4HP PRN PRN Reason: PAIN LEVEL 3-6 Last Admin: 01/30/20 07:28 Dose: 2 tab Documented by: Aspirin (Ecotrin) 325 mg PO BID [facility] Last Admin: 01/30/20 08:21 Dose: 325 mg Documented by: Atorvastatin Calcium (Lipitor) 10 mg PO HS [facility] Last Admin: 01/29/20 20:15 Dose: 10 mg Documented by: Bisacodyl (Dulcolax) 10 mg [place] Q2-3DAYS PRN PRN Reason: Constipation Bupropion HCl (Wellbutrin Xl) 300 mg PO DAILY [facility] Last Admin: 01/30/20 08:20 Dose: 300 mg Documented by: Dextrose (Dextrose 50%) 0 ml IV UD PRN PRN Reason: Hypoglycemia Diagnostic Test (Pha) (Accu-Chek) 1 each FS ACHS [facility] Last Admin: 01/30/20 07:35 Dose: 1 each Documented by: Docusate Sodium (Colace) 100 mg PO BID [facility] Last Admin: 01/30/20 08:21 Dose: 100 mg Documented by: Gabapentin (Neurontin) 300 mg PO TID [facility] Last Admin: 01/30/20 08:21 Dose: 300 mg Documented by: Glimepiride (Amaryl) 2 mg PO BIDAC [facility] Last Admin: 01/30/20 07:28 Dose: 2 mg Documented by: Glucose (Insta-Glucose) 15 gm PO PRN PRN PRN Reason: Hypoglycemia Hydrochlorothiazide (Oretic) 12.5 mg PO DAILY [facility] Last Admin: 01/30/20 08:20 Dose: 12.5 mg Documented by: Hydromorphone HCl (Dilaudid) 0.25 - 0.5 mg IV Q4HP PRN; Protocol PRN Reason: Per Pain Protocol Last Admin: 01/29/20 12:37 Dose: 0.25 mg Documented by: Acetaminophen (Ofirmev) 650 mg in 65 mls @ 130 mls/hr IV Q6HP PRN; Protocol PRN Reason: Per Pain Protocol/Fever > 101 Last Infusion: 01/29/20 16:23 Dose: Infused Documented by: Potassium Chloride 40 meq/ (Dextrose) 520 mls @ 130 mls/hr IV UD PRN PRN Reason: K+ = or < 3.5 Magnesium Sulfate (Magnesium Sulfate) 2 gm in 50 mls @ 50 mls/hr IV UD PRN PRN Reason: MG = or < 1.7 Last Admin: 01/30/20 09:45 Dose: 50 mls/hr Documented by: Ceftriaxone Sodium 2 gm/ (Dextrose) 50 mls @ 100 mls/hr IV Q24H [facility]; Protocol Last Infusion: 01/30/20 09:39 Dose: Infused Documented by: Vancomycin HCl 1,000 mg/ (Sodium Chloride) 250 mls @ 250 mls/hr IV Q12H [facility] Last Admin: 01/30/20 09:45 Dose: 250 mls/hr Documented by: Insulin Glargine (Lantus) 30 unit SQ DAILY [facility] Last Admin: 01/30/20 08:22 Dose: 30 unit Documented by: Insulin Human Lispro (Humalog) 0 unit SQ ACHS [facility]; Protocol Last Admin: 01/30/20 08:20 Dose: 3 units Documented by: Iron Carb/Multivit/[place]/Folic Acid (Multivitamin W/Minerals) 1 tab PO DAILY [facility] Last Admin: 01/30/20 08:21 Dose: 1 tab Documented by: Ketorolac Tromethamine (Toradol) 15 mg IV Q6HP PRN PRN Reason: pain Last Admin: 01/29/20 23:06 Dose: 15 mg Documented by: Lisinopril (Zestril) 10 mg PO DAILY [facility] Last Admin: 01/30/20 08:21 Dose: 10 mg Documented by: Magnesium Hydroxide (Milk Of Magnesia) 30 ml PO BIDP PRN PRN Reason: Constipation Melatonin (Melatonin 3mg Tablet) 3 mg PO HSP PRN PRN Reason: Insomnia Metformin HCl (Glucophage) 850 mg PO TIDCC [facility] Last Admin: 01/30/20 08:21 Dose: 850 mg Documented by: Ondansetron HCl (Zofran Odt) 4 mg SL Q4-6HP PRN; Protocol PRN Reason: Nausea And Vomiting Ondansetron HCl (Zofran) 4 mg IV Q4HP PRN PRN Reason: Nausea And Vomiting Oxybutynin Chloride (Ditropan Xl) 10 mg PO DAILY [facility] Last Admin: 01/30/20 08:20 Dose: 10 mg Documented by: Polyethylene Glycol (Miralax) 17 gm PO DAILYP PRN PRN Reason: Constipation Potassium Chloride (Klor-Con) 40 meq PO DAILYP PRN PRN Reason: K+ < 3.5 Senna (Senokot) 1 tab PO HS [facility] Last Admin: 01/29/20 20:16 Dose: 1 tab Documented by: Senna/Docusate Sodium (Senna Plus Tablet) 1 tab PO HS [facility] Last Admin: 01/29/20 20:45 Dose: Not Given Documented by: Sitagliptin Phosphate (Januvia) 100 mg PO DAILY [facility] Last Admin: 01/30/20 08:21 Dose: 100 mg Documented by: Sodium Biphosphate/Sodium Phosphate (Fleets Adult) 1 dose [place] Q3-4DAYS PRN PRN Reason: Constipation Sodium Chloride (Saline Flush) 10 ml IV Q8 [facility] Last Admin: 01/30/20 05:08 Dose: 10 ml Documented by: Sodium Chloride (Saline Flush) 10 ml IV Q8 [facility] Last Admin: 01/30/20 05:31 Dose: Not Given Documented by: Throat Lozenges (Cepacol) 1 lozenge PO PRN PRN PRN Reason: Sore Throat Last Admin: 01/29/20 04:40 Dose: 1 lozenge Documented by: Vancomycin HCl (Vancomycin Per Pharmacy) 1 order IV UD [facility]; Protocol A/P Assessment and plan (1) Infected prosthetic knee joint: Status: Acute Comment: Pt is a 64 yo female POD #2 s/p right septic knee TKA washout. --WBC trending downwards--8.1 as of 01/30/20. --blood cultures--preliminary growth gram positive cocci--continue vancomycin and Rocephin--inpatient abx management per hospitalist. --repeat blood cultures drawn and pending. --PT/OT: WBAT right lower extremity. --continue pain medications. --continue insulin/CC diet. --prophy: Heparin, scds, IS. --dispo: home pending cultures results and appropriate abx. Pt lives in [place]--will likely receive tx in [place]. Extremities Extremities Right lower extremity: normal to inspection (fransisca wrap in place. Silver dressing is clean, dry and intact. No drainage.), normal capillary refill and lower leg Details: Negative for erythema and warmth; No cyanosis Details: no pain with passive calf stretch bilaterally. NVIT distally.
--- NOTE | 2020-01-30 10:15 | Discharge Summary ---
Discharge Provider Provider Patient information: Note initiated : 01/30/20 at 10:08 am Service Date, if different from initiated Date: [] Patient: Jeannie Esposito 64 y/o F admitted on 01/27/20 for R knee pain x2D. Chief Complaint: [] Date of admission: 01/27/20 18:48 Discharge date: 01/31/20 Primary care physician: Neftali Marina Consults: 01/27/20 Consult to Physician [CONS] Stat Comment: Consulting Provider: Austin Virk Reason For Exam: Physician to Consult Consult to Physician [CONS] Stat Comment: Consulting Provider: Rodrigo Aparicio Reason For Exam: Physician to Consult Consult to Physician [CONS] Stat Comment: Consulting Provider: Aditi Aguilera Reason For Exam: Physician to Consult COURSE Hospital Course Hospital course: Pt is POD#2 s/p right septic knee washout with liner exchange with Dr. Aparicio. Pt remains afebrile and vitals are stable. --WBC trending downwards--8.1. PT currently on Vancomycin and Rocephin. --ID consult placed and outpatient abx management per hospitalist/ID. Discharge diagnosis: S/p right septic knee with washout and liner exchange. Time Spent with Patient Time attestation: Total time spent providing and/or coordinating discharge services: Physical Examination Exam Incision healing: Yes Incision draining: No Incision red: No Incision swollen: No Incision inflamed: No Clean and dry: Yes Weight bearing status: as tolerated DC Instructions-General Patient Instructions Additional Dressing Instructions: may shower with silver dressing in place. May change if more than 75% saturated. If saturated, change to new dry dressing. K eep clean and dry. No soaking incision in tub,bath,pool. Discharge Plan Patient/Caregiver Discharge Instructions Activity: as instructed Diet: Consistent Carbohydrate Instructions: Joint Incision and Drainage (DC) Activity Restrictions/Additional Instructions: Weightbearing as tolerated with the right lower extremity with walker as needed. Prescriptions: New hydrocodone-acetaminophen 1 TAB tablet 1 - 2 tab PO Q4HP PRN (Reason: Pain) Qty: 75 RF: 0 Continued Atorvastatin [Lipitor] 10 MG Tablet 10 mg PO HS RF: 0 oxybutynin chloride 10 MG tablet extended release 24hr 10 mg PO DAILY RF: 0 metformin 850 MG tablet 850 mg PO TIDCC RF: 0 glimepiride 2 MG tablet 2 mg PO BIDAC RF: 0 aspirin 81 MG tablet,chewable 81 mg CHEWED DAILY RF: 0 lisinopril-hydrochlorothiazide 1 TAB tablet 1 tab PO DAILY RF: 0 bupropion HCl [Wellbutrin XL] 300 MG tablet extended release 24 hr 300 mg PO DAILY RF: 0 gabapentin 300 mg Capsule 300 mg PO TID RF: 0 Basaglar KwikPen U-100 Insulin 100 unit/mL (3 mL) Insulin Pen 30 unit SUBCUT DAILY RF: 0 Adults Multivitamin 18 mg iron-400 mcg-25 mcg Tablet 1 tab PO DAILY RF: 0 Other Ambulatory Orders: Physical Therapy at Discharge - TKA (Routine) Location: None Selected Ordered By: Tyler Navarrete Follow Up Plan Follow up with: Neftali Marina MD [Primary Care Provider] - Bill Bernard PA-C [Physician [employer]] - (f/u in 2 weeks for staple removalpostoperative wound check.) Patient Disposition: Home, Self-Care Assessment: 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 Currently no obvious source. UA is negative.. Plan of Treatment: Outpatient antibiotic treatment per ID/Hospitalist. Followup with orthopedics in 2 weeks. Prognosis: Fair Rehab Potential: Good Overall status at discharge: patient is progressing back to baseline Discharge Orders: Discharge Order (Routine); Ordered 01/30/20 Ordered By: Tyler Navarrete Pending Pending Pending: Resuscitation Status Full Code Diet Regular Diet Start Fri 11 Lunch Hydrocodone Bitart/Acetaminophen ([place] 10/325mg) 0 tab PO Q4HP PRN PRN Reason: PAIN LEVEL 3-6 Last Admin: 01/30/20 07:28 Dose: 2 tab Documented by: Admin: 01/30/20 03:19 Dose: 2 tab Documented by: Admin: 01/29/20 21:47 Dose: 1 tab Documented by: Admin: 01/29/20 17:11 Dose: 2 tab Documented by: Admin: 01/29/20 12:38 Dose: 2 tab Documented by: Admin: 01/29/20 08:28 Dose: 2 tab Documented by: Admin: 01/28/20 21:30 Dose: 2 tab Documented by: JUDI Aspirin (Ecotrin) 325 mg PO BID [facility] Last Admin: 01/30/20 08:21 Dose: 325 mg Documented by: Admin: 01/29/20 20:16 Dose: 325 mg Documented by: Admin: 01/29/20 08:29 Dose: 325 mg Documented by: Admin: 01/28/20 21:30 Dose: 325 mg Documented by: JUDI Atorvastatin Calcium (Lipitor) 10 mg PO HS [facility] Last Admin: 01/29/20 20:15 Dose: 10 mg Documented by: Admin: 01/28/20 21:30 Dose: 10 mg Documented by: Admin: 01/27/20 20:36 Dose: 10 mg Documented by: FERMIN Bupropion HCl (Wellbutrin Xl) 300 mg PO DAILY [facility] Admin: 01/30/20 08:20 Dose: 300 mg Documented by: Admin: 01/29/20 08:30 Dose: 300 mg Documented by: Admin: 01/28/20 09:36 Dose: 300 mg Documented by: DEANDRE Diagnostic Test (Pha) (Accu-Chek) 1 each FS ACHS [facility] Admin: 01/30/20 07:35 Dose: 1 each Documented by: Admin: 01/29/20 20:16 Dose: 1 each Documented by: Admin: 01/29/20 17:12 Dose: 1 each Documented by: Admin: 01/29/20 12:39 Dose: 1 each Documented by: Admin: 01/29/20 08:28 Dose: 1 each Documented by: Admin: 01/28/20 19:12 Dose: 1 each Documented by: Admin: 01/28/20 18:03 Dose: 1 each Documented by: Admin: 01/28/20 11:30 Dose: 1 each Documented by: Admin: 01/28/20 07:20 Dose: 1 each Documented by: Admin: 01/27/20 19:52 Dose: 1 each Documented by: FERMIN Docusate Sodium (Colace) 100 mg PO BID [facility] Admin: 01/30/20 08:21 Dose: 100 mg Documented by: Admin: 01/29/20 20:16 Dose: 100 mg Documented by: Admin: 01/29/20 08:29 Dose: 100 mg Documented by: Admin: 01/28/20 21:29 Dose: 100 mg Documented by: JUDI Gabapentin (Neurontin) 300 mg PO TID [facility] Last Admin: 01/30/20 08:21 Dose: 300 mg Documented by: Admin: 01/29/20 20:16 Dose: 300 mg Documented by: Admin: 01/29/20 15:16 Dose: 300 mg Documented by: Admin: 01/29/20 08:29 Dose: 300 mg Documented by: Admin: 01/28/20 21:30 Dose: 300 mg Documented by: Admin: 01/28/20 15:25 Dose: 300 mg Documented by: Admin: 01/28/20 09:37 Dose: 300 mg Documented by: Admin: 01/27/20 20:35 Dose: 300 mg Documented by: FERMIN Glimepiride (Amaryl) 2 mg PO BIDAC [facility] Admin: 01/30/20 07:28 Dose: 2 mg Documented by: Admin: 01/29/20 17:13 Dose: 2 mg Documented by: WOOD Hydrochlorothiazide (Oretic) 12.5 mg PO DAILY [facility] Admin: 01/30/20 08:20 Dose: 12.5 mg Documented by: Admin: 01/29/20 08:29 Dose: 12.5 mg Documented by: Admin: 01/28/20 09:36 Dose: 12.5 mg Documented by: DEANDRE Hydromorphone HCl (Dilaudid) 0.25 - 0.5 mg IV Q4HP PRN; Protocol PRN Reason: Per Pain Protocol Last Admin: 01/29/20 12:37 Dose: 0.25 mg Documented by: Admin: 01/29/20 08:43 Dose: 0.25 mg Documented by: Admin: 01/29/20 00:07 Dose: 0.5 mg Documented by: Admin: 01/28/20 19:01 Dose: 0.5 mg Documented by: Admin: 01/28/20 04:36 Dose: 0.5 mg Documented by: FERMIN Acetaminophen (Ofirmev) 650 mg in 65 mls @ 130 mls/hr IV Q6HP PRN; Protocol PRN Reason: Per Pain Protocol/Fever > 101 Last Infusion: 01/29/20 16:23 Dose: 0 mls/hr Documented by: Admin: 01/29/20 15:17 Dose: 130 mls/hr Documented by: Infusion: 01/28/20 05:12 Dose: 0 mls/hr Documented by: Admin: 01/28/20 04:31 Dose: 130 mls/hr Documented by: FERMIN Magnesium Sulfate (Magnesium Sulfate) 2 gm in 50 mls @ 50 mls/hr IV UD PRN PRN Reason: MG = or < 1.7 Last Admin: 01/30/20 09:45 Dose: 50 mls/hr Documented by: TETE Ceftriaxone Sodium 2 gm/ (Dextrose) 50 mls @ 100 mls/hr IV Q24H [facility]; Protocol Last Infusion: 01/30/20 09:39 Dose: 0 mls/hr Documented by: Admin: 01/30/20 07:37 Dose: 100 mls/hr Documented by: Infusion: 01/29/20 14:55 Dose: 0 mls/hr Documented by: Admin: 01/29/20 08:30 Dose: 100 mls/hr Documented by: Infusion: 01/28/20 23:02 Dose: 0 mls/hr Documented by: Admin: 01/28/20 22:25 Dose: 100 mls/hr Documented by: JUDI Vancomycin HCl 1,000 mg/ (Sodium Chloride) 250 mls @ 250 mls/hr IV Q12H [facility] Last Admin: 01/30/20 09:45 Dose: 250 mls/hr Documented by: TETE Insulin Glargine (Lantus) 30 unit SQ DAILY [facility] Last Admin: 01/30/20 08:22 Dose: 30 unit Documented by: Admin: 01/29/20 08:44 Dose: 30 unit Documented by: Admin: 01/28/20 09:37 Dose: 30 unit Documented by: DEANDRE Insulin Human Lispro (Humalog) 0 unit SQ ACHS [facility]; Protocol Last Admin: 01/30/20 08:20 Dose: 3 units Documented by: Admin: 01/29/20 20:44 Dose: Not Given Documented by: Admin: 01/29/20 17:11 Dose: 4 units Documented by: Admin: 01/29/20 12:39 Dose: 4 units Documented by: Admin: 01/29/20 08:28 Dose: 4 units Documented by: Admin: 01/28/20 21:28 Dose: 2 units Documented by: Admin: 01/28/20 21:00 Dose: Not Given Documented by: Admin: 01/28/20 11:50 Dose: Not Given Documented by: Admin: 01/28/20 09:38 Dose: 4 units Documented by: Admin: 01/27/20 20:36 Dose: Not Given Documented by: FERMIN Iron Carb/Multivit/[place]/Folic Acid (Multivitamin W/Minerals) 1 tab PO DAILY [facility] Last Admin: 01/30/20 08:21 Dose: 1 tab Documented by: Admin: 01/29/20 08:29 Dose: 1 tab Documented by: Admin: 01/28/20 09:37 Dose: Not Given Documented by: DEANDRE Ketorolac Tromethamine (Toradol) 15 mg IV Q6HP PRN PRN Reason: pain Last Admin: 01/29/20 23:06 Dose: 15 mg Documented by: Admin: 01/29/20 15:33 Dose: 15 mg Documented by: WOOD Lisinopril (Zestril) 10 mg PO DAILY [facility] Last Admin: 01/30/20 08:21 Dose: 10 mg Documented by: Admin: 01/29/20 08:29 Dose: 10 mg Documented by: Admin: 01/28/20 09:35 Dose: 10 mg Documented by: DEANDRE Metformin HCl (Glucophage) 850 mg PO TIDCC [facility] Last Admin: 01/30/20 08:21 Dose: 850 mg Documented by: Admin: 01/29/20 17:11 Dose: 850 mg Documented by: Admin: 01/29/20 12:38 Dose: 850 mg Documented by: Admin: 01/29/20 08:29 Dose: 850 mg Documented by: Admin: 01/28/20 21:30 Dose: 850 mg Documented by: Admin: 01/28/20 13:23 Dose: Not Given Documented by: Admin: 01/28/20 09:35 Dose: 850 mg Documented by: Admin: 01/27/20 20:35 Dose: 850 mg Documented by: FERMIN Oxybutynin Chloride (Ditropan Xl) 10 mg PO DAILY [facility] Last Admin: 01/30/20 08:20 Dose: 10 mg Documented by: Admin: 01/29/20 08:29 Dose: 10 mg Documented by: Admin: 01/28/20 09:36 Dose: 10 mg Documented by: DEANDRE Senna (Senokot) 1 tab PO [facility] Last Admin: 01/29/20 20:16 Dose: 1 tab Documented by: Admin: 01/28/20 21:29 Dose: 1 tab Documented by: JUDI [place]/Docusate Sodium (Senna Plus Tablet) 1 tab PO [facility] Last Admin: 01/29/20 20:45 Dose: Not Given Documented by: Admin: 01/29/20 00:04 Dose: Not Given Documented by: Admin: 01/27/20 20:35 Dose: Not Given Documented by: FERMIN Sitagliptin Phosphate (Januvia) 100 mg PO DAILY [facility] Last Admin: 01/30/20 08:21 Dose: 100 mg Documented by: Admin: 01/29/20 15:17 Dose: 100 mg Documented by: WOOD Sodium Chloride (Saline Flush) 10 ml IV Q8 [facility] Last Admin: 01/30/20 05:08 Dose: 10 ml Documented by: Admin: 01/29/20 21:03 Dose: Not Given Documented by: Admin: 01/29/20 14:56 Dose: Not Given Documented by: Admin: 01/29/20 05:44 Dose: Not Given Documented by: Admin: 01/29/20 00:13 Dose: Not Given Documented by: Admin: 01/28/20 13:24 Dose: Not Given Documented by: Admin: 01/28/20 05:54 Dose: Not Given Documented by: Admin: 01/27/20 21:52 Dose: 10 ml Documented by: FERMIN Sodium Chloride (Saline Flush) 10 ml IV Q8 [facility] Last Admin: 01/30/20 05:31 Dose: Not Given Documented by: Admin: 01/29/20 21:04 Dose: Not Given Documented by: Admin: 01/29/20 14:54 Dose: Not Given Documented by: Admin: 01/29/20 05:44 Dose: Not Given Documented by: Admin: 01/29/20 00:13 Dose: Not Given Documented by: JUDI Throat Lozenges (Cepacol) 1 lozenge PO PRN PRN PRN Reason: Sore Throat Last Admin: 01/29/20 04:40 Dose: 1 lozenge Documented by: JUDI Shift Summary 01/30/20 05:21 Shift Summary by Libby Rico Pt is A&O x4. Up with supervision, FWW, and gait belt. Blood cultures came back positive for Gram + cocci in clusters. Pt receiving rocephin and vancomycin. IV to right arm infiltrated so new 20g IV was placed in right handPt was placed in CPM machine but only tolerated it for 30min before requesting to have it taken off. HS BG was 130 and no coverage was needed. Pt has complained of pain and has received [place] 10/325mg x1 and toradol 15mg x1. Did not ambulate in the [place]arcia but has ambulated to and from the bathroom. Initialized on 01/30/20 05:21 - END OF NOTE
--- NOTE | 2020-01-30 11:18 | Internal Med Progress Note ---
SUBJECTIVE Subjective Patient information: Note initiated : 01/30/20 at 11:18 am Service Date, if different from initiated Date: [] Patient: Jeannie Esposito a 64 y/o F admitted on 01/27/20 for R knee pain x2D. Chief Complaint: [] History of present illness: Ms. Esposito is a 64 year old F with a history of diabetes/hyperlipidemia/HTN anxiety disorder and DJD who presents to the ER with 2 days onset of right lower extremity redness swelling and pain during ambulation and weightbearing. Patient symptoms accompanied with fever. She denies trauma/recent URI, skin infections. She denies recent hospitalization. Initial work-up in the ER included arthrocentesis which revealed purulent aspi rate. Cultures along with Gram stain/joint fluid studies were sent. Orthopedics was consulted and recommended hospitalization for operative intervention in the next 24 hours. Subsequently hospital service was consulted. At the time of my evaluation patient is alert and oriented. She denies head ache, chest pain, diarrhea, dysuria, nausea, vomiting. She further denies penetrating wound. 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 01/27 -patient awaiting surgery. No overnight events. No concerns per staff. Synovial cell count 55,000 with 88% neutrophils. Patient undergo joint washout today. Continue antibiotic coverage and de-escalate based on cultures once available. 01/28-patient postop day 1. Doing well. On antibiotic coverage. Cultures negative so far. Afebrile. White count 9.8. A1c 11.5. Elevated blood sugars. 01/29-patient doing well. No overnight events. Blood sugars gradually trending down. Continue CC diet. GPC bacteremia. Surveillance cultures pending. Infectious is consulted. Currently on Rocephin/vancomycin. No significant pain. Able to weight-bear. Case discussed with orthopedics and will likely discharge on antibiotics once identified and duration as per determination of infectious disease specialist Constitutional Vitals: Vital Signs Temp Pulse Resp BP Pulse Ox 97.6 F 60 12 126/76 95 01/30/20 07:16 01/30/20 07:16 01/30/20 07:16 01/30/20 07:16 01/30/20 09:00 Period Temp Pulse Resp BP Sys/Kelley Pulse Ox Last 24 Hr 97.3 F-98.6 F 60-85 05-07 94-128/56-76 94-98 Intake and Output 01/29/20 01/30/20 01/30/20 21:59 05:59 13:59 Intake Total 2655 1000 50 Output Total 800 200 400 Balance 1855 800 -350 Weight 93.213 kg Alert oriented Nonlabored breathing No anxiety No significant postoperative pain or swelling Intake & Output: Intake & Output 01/29/20 01/30/20 01/30/20 21:59 05:59 13:59 Intake Total 2655 1000 50 Output Total 800 200 400 Balance 1855 800 -350 Weight 93.213 kg Intake: IV 1115 500 50 Sodium Chloride 0.45% 1,000 ml 1000 @ 100 mls/hr IV .Q10H [facility] Rx#: [id number] Vancomycin 1,500 mg In Sodium 500 Chloride 0.9% 500 ml @ 333.3 mls/hr IV Q12H [facility] Rx#: [id number] Rocephin 2 gm In Dextrose 5% in 50 50 Water 50 ml @ 100 mls/hr IV Q24H [facility] Rx#:[id number] Oral 1540 500 Output: Void Amount 800 200 400 Other: Meal Dinner Percent of Meal Consumed 100% Feeding Ability Independent Urine Appearance Clear Clear Urine Color Bright Yellow OBJ DATA Labs CBC & Chem 7: 01/30/20 04:51 01/30/20 04:51 Labs: Abnormal Lab Results 01/30/20 01/29/20 01/29/20 04:51 05:10 05:10 Seg Neutrophils % 84 H Lymphocytes % 11 L Metamyelocytes % ESR Chloride Creatinine 1.3 H Glucose 249 H 390 H Hemoglobin A1c Calcium 8.3 L GGT 158 H 78 H AST 175 H 38 H ALT 150 H 55 H Lactate Dehydrogenase 305 H C-Reactive Protein Total Protein 5.8 L Albumin 3.1 L Triglycerides Urine Glucose (UA) Hyaline Casts Synovial Neutrophils 01/28/20 01/28/20 01/27/20 05:15 05:15 17:17 Seg Neutrophils % Lymphocytes % Metamyelocytes % 1 H ESR Chloride Creatinine Glucose 246 H Hemoglobin A1c Calcium 8.4 L GGT 66 H AST ALT 41 H Lactate Dehydrogenase C-Reactive Protein Total Protein Albumin Triglycerides 266 H Urine Glucose (UA) >=500 A Hyaline Casts 31 H Synovial Neutrophils 09/03/0701/27/20 01/27/20 16:32 15:49 15:49 Seg Neutrophils % Lymphocytes % Metamyelocytes % ESR 34 H Chloride 95 L Creatinine Glucose 244 H Hemoglobin A1c 11.5 H Calcium GGT AST ALT 54 H Lactate Dehydrogenase C-Reactive Protein 17.7 H Total Protein Albumin Triglycerides Urine Glucose (UA) Hyaline Casts Synovial Neutrophils 88 H Meds: Medications Acetaminophen (Tylenol) 650 mg PO Q6HP PRN PRN Reason: PAIN/FEVER > 101 Hydrocodone Bitart/Acetaminophen ([place] 10/325mg) 0 tab PO Q4HP PRN PRN Reason: PAIN LEVEL 3-6 Last Admin: 01/30/20 07:28 Dose: 2 tab Documented by: Aspirin (Ecotrin) 325 mg PO BID [facility] Last Admin: 01/30/20 08:21 Dose: 325 mg Documented by: Atorvastatin Calcium (Lipitor) 10 mg PO HS [facility] Last Admin: 01/29/20 20:15 Dose: 10 mg Documented by: Bisacodyl (Dulcolax) 10 mg LA Q2-3DAYS PRN PRN Reason: Constipation Bupropion HCl (Wellbutrin Xl) 300 mg PO DAILY [facility] Last Admin: 01/30/20 08:20 Dose: 300 mg Documented by: Dextrose (Dextrose 50%) 0 ml IV UD PRN PRN Reason: Hypoglycemia Diagnostic Test (Pha) (Accu-Chek) 1 each FS ACHS [facility] Last Admin: 01/30/20 07:35 Dose: 1 each Documented by: Docusate Sodium (Colace) 100 mg PO BID [facility] Last Admin: 01/30/20 08:21 Dose: 100 mg Documented by: Gabapentin (Neurontin) 300 mg PO TID [facility] Last Admin: 01/30/20 08:21 Dose: 300 mg Documented by: Glimepiride (Amaryl) 2 mg PO BIDAC [facility] Last Admin: 01/30/20 07:28 Dose: 2 mg Documented by: Glucose (Insta-Glucose) 15 gm PO PRN PRN PRN Reason: Hypoglycemia Hydrochlorothiazide (Oretic) 12.5 mg PO DAILY [facility] Last Admin: 01/30/20 08:20 Dose: 12.5 mg Documented by: Hydromorphone HCl (Dilaudid) 0.25 - 0.5 mg IV Q4HP PRN; Protocol PRN Reason: Per Pain Protocol Last Admin: 01/29/20 12:37 Dose: 0.25 mg Documented by: Acetaminophen (Ofirmev) 650 mg in 65 mls @ 130 mls/hr IV Q6HP PRN; Protocol PRN Reason: Per Pain Protocol/Fever > 101 Last Infusion: 01/29/20 16:23 Dose: Infused Documented by: Potassium Chloride 40 meq/ (Dextrose) 520 mls @ 130 mls/hr IV UD PRN PRN Reason: K+ = or < 3.5 Magnesium Sulfate (Magnesium Sulfate) 2 gm in 50 mls @ 50 mls/hr IV UD PRN PRN Reason: MG = or < 1.7 Last Admin: 01/30/20 09:45 Dose: 50 mls/hr Documented by: Ceftriaxone Sodium 2 gm/ (Dextrose) 50 mls @ 100 mls/hr IV Q24H [facility]; Protocol Last Infusion: 01/30/20 09:39 Dose: Infused Documented by: Vancomycin HCl 1,000 mg/ (Sodium Chloride) 250 mls @ 250 mls/hr IV Q12H [facility] Last Admin: 01/30/20 09:45 Dose: 250 mls/hr Documented by: Insulin Glargine (Lantus) 30 unit SQ DAILY [facility] Last Admin: 01/30/20 08:22 Dose: 30 unit Documented by: Insulin Human Lispro (Humalog) 0 unit SQ ACHS [facility]; Protocol Last Admin: 01/30/20 08:20 Dose: 3 units Documented by: Iron Carb/Multivit/Web Press Roll Tender/Folic Acid (Multivitamin W/Minerals) 1 tab PO DAILY [facility] Last Admin: 01/30/20 08:21 Dose: 1 tab Documented by: Ketorolac Tromethamine (Toradol) 15 mg IV Q6HP PRN PRN Reason: pain Last Admin: 01/29/20 23:06 Dose: 15 mg Documented by: Lisinopril (Zestril) 10 mg PO DAILY [facility] Last Admin: 01/30/20 08:21 Dose: 10 mg Documented by: Magnesium Hydroxide (Milk Of Magnesia) 30 ml PO BIDP PRN PRN Reason: Constipation Melatonin (Melatonin 3mg Tablet) 3 mg PO HSP PRN PRN Reason: Insomnia Metformin HCl (Glucophage) 850 mg PO TIDCC [facility] Last Admin: 01/30/20 08:21 Dose: 850 mg Documented by: Ondansetron HCl (Zofran Odt) 4 mg SL Q4-6HP PRN; Protocol PRN Reason: Nausea And Vomiting Ondansetron HCl (Zofran) 4 mg IV Q4HP PRN PRN Reason: Nausea And Vomiting Oxybutynin Chloride (Ditropan Xl) 10 mg PO DAILY [facility] Last Admin: 01/30/20 08:20 Dose: 10 mg Documented by: Polyethylene Glycol (Miralax) 17 gm PO DAILYP PRN PRN Reason: Constipation Potassium Chloride (Klor-Con) 40 meq PO DAILYP PRN PRN Reason: K+ < 3.5 Senna (Senokot) 1 tab PO [facility] Last Admin: 01/29/20 20:16 Dose: 1 tab Documented by: Senna/Docusate Sodium (Senna Plus Tablet) 1 tab PO [facility] Last Admin: 01/29/20 20:45 Dose: Not Given Documented by: Sitagliptin Phosphate (Januvia) 100 mg PO DAILY [facility] Last Admin: 01/30/20 08:21 Dose: 100 mg Documented by: Sodium Biphosphate/Sodium Phosphate (Fleets Adult) 1 dose LA Q3-4DAYS PRN PRN Reason: Constipation Sodium Chloride (Saline Flush) 10 ml IV Q8 [facility] Last Admin: 01/30/20 05:08 Dose: 10 ml Documented by: Sodium Chloride (Saline Flush) 10 ml IV Q8 [facility] Last Admin: 01/30/20 05:31 Dose: Not Given Documented by: Throat Lozenges (Cepacol) 1 lozenge PO PRN PRN PRN Reason: Sore Throat Last Admin: 01/29/20 04:40 Dose: 1 lozenge Documented by: Vancomycin HCl (Vancomycin Per Pharmacy) 1 order IV UD [facility]; Protocol A/P Assessment and plan (1) Infected prosthetic knee joint: Status: Acute Comment: Pt is a 64 yo female POD #2 s/p right septic knee TKA washout. --WBC trending downwards--8.1 as of 01/30/20. --blood cultures--preliminary growth gram positive cocci--continue vancomycin and Rocephin--inpatient abx management per hospitalist. --repeat blood cultures drawn and pending. --PT/OT: WBAT right lower extremity. --continue pain medications. --continue insulin/CC diet. --prophy: Heparin, scds, IS. --dispo: home pending cultures results and appropriate abx. Pt lives in [place]--will likely receive tx in [place]. Narrative A/P Narrative: * GPC bacteremia-surveillance cultures pending. On Rocephin/vancomycin. * Right knee prosthetic joint septic arthritis. Postop day 2. Arthrocentesis fluid 55,000 cell count/88% neutrophils. Cultures negative so far. Continue vancomycin/Rocephin. ID consulted. * Poorly controlled DM type II , continue basal prandial insulin/CC diet/metformin/glimepiride/sitagliptin * Hypertension continue lisinopril/thiazide * Neuropathy continue gabapentin * Degenerative joint disease continue hydrocodone * Anxiety disorder continue bupropion * prophylaxis Heparin Plan * Continue antibiotic coverage and de-escalate based on sensitivities. * ID consult * Surveillance cultures * Continue pre-existing medical condition management as above * Uptitrate basal insulin to 36 units * PT OT nutrition support Time Spent With Patient Time: Total time spent is greater than 50% in coordination of care (as documented) at patient's floor/unit and/or counseling patient: QUALITY VTE Deep Vein Thrombosis/Pulmonary Embolism Present on Admission: No
[2020-01-30] MEDS ORDERED: 0.9 % SODIUM CHLORIDE 500 ML IV PRN (11:43)
[2020-01-30] MEDS ORDERED: AMOXICILLIN 250 MG CAPSULE PO ONE (11:43)
[2020-01-30] MEDS ORDERED: EPINEPHrine 1 MG/ML AMPUL IM PRN (11:43)
--- NOTE | 2020-01-30 15:42 | Infectious Disease Consult ---
HPI Data of Consult Primary Care Provider: Neftali Marina Consult Narrative cc:: CC: Austin Virk 64 year old lady with PMHx of DM2 (A1C of 11, on Metformin, Januvia and Lantus) and Rt TKA ( 3 years ago) is admitted with swelling, pain and redness of right knee since last few days. It all started past Friday when pt noticed pain in right knee which woke her up. Next day (01/26/20) had to go to local ED in [place]. Labs showed a white count of 14k and a CRP of 7.6. She was sent home with pain meds which didnot improve her symptoms. The day after that she presented again for f/u. She had fever of 103F at home, and on exam her right knee was found to have effusion on bedside ultrasound. She was referred to [facility] for further management. At [facility] ED, she was afebrile, had normal WBC. Her right knee was tapped which showed ~55K nucleated cells of which 88% were PMNs. Pt had 2 sets of blood Cx sent, and was started on IV Vanc and IV Ceftriaxone. Pt's blood Cx (1/2 sets) came back +ve for GPC, with verigene PCR detecting none of common pathogenic organisms such as Staph aureus, Streptococci, Enterococci. Review of Systems All systems: reviewed and no additional remarkable complaints except as stated PFSH PFSH All Active Problems Hx of total knee arthroplasty (Acute) Infected prosthetic knee joint (Acute) Surgical History Hx of total knee arthroplasty (Acute) Social History smoking status: Former smoker MEDS/ALLERGIES Home Medications and Allergies Home Medications Medication Instructions Recorded Confirmed Type Atorvastatin [Lipitor] 10 mg PO HS 07/23/16 01/27/20 History aspirin 81 mg CHEWED DAILY 07/23/16 01/27/20 History bupropion HCl [Wellbutrin XL] 300 mg PO DAILY 07/23/16 01/27/20 History glimepiride 2 mg PO BIDAC 07/23/16 01/27/20 History lisinopril-hydrochlorothiazide 1 tab PO DAILY 07/23/16 01/27/20 History metformin 850 mg PO TIDCC 07/23/16 01/27/20 History oxybutynin chloride 10 mg PO DAILY 07/23/16 01/27/20 History Adults Multivitamin 1 tab PO DAILY 01/27/20 01/27/20 History Basaglar ReidikPen U-100 Insulin 30 unit SUBCUT DAILY 01/27/20 01/27/20 History gabapentin 300 mg PO TID 01/27/20 01/27/20 History hydrocodone-acetaminophen 1 - 2 tab PO Q4HP PRN #75 tab 01/30/20 01/27/20 Rx Allergies Allergy/AdvReac Type Severity Reaction Status Date / Time No Known Drug Allergies Allergy Unverified 01/30/20 19:39 Physical Examination Vital Signs Vital signs: Temp Pulse Resp BP Pulse Ox 37.0 C 68 14 122/88 96 01/30/20 12:00 01/30/20 12:00 01/30/20 12:00 01/30/20 12:00 01/30/20 13:00 Constitutional General appearance: alert and appears uncomfortable EENT ENT: other (no thrush) Respiratory Auscultation: bilateral: clear Cardiovascular Cardiovascular: regular rate and rhythm and other (s1 s2 normal, no m/r/g) Gastrointestinal Gastrointestinal: soft and non-tender Extremities Extremities: no edema Musculoskeletal Musculoskeletal: no deformities and other (right knee: has a surgical dressing. No drainage seen around the dressing. range of motion is limited and painful. some bruising seen on medial aspect of right knee joint) Results Laboratory Findings CBC and BMP: 01/31/20 05:00 01/31/20 05:00 ABG, PT/INR, D-dimer: PT/INR, D-dimer PT 12.3 sec (11.9-14.5) 01/27/20 15:49 INR 0.9 (0.9-1.1) 01/27/20 15:49 Abnormal lab findings: Abnormal Labs 01/27/20 01/27/20 01/27/20 15:49 15:49 16:32 Seg Neutrophils % Lymphocytes % Metamyelocytes % ESR 34 H Chloride 95 L Creatinine Glucose 244 H Hemoglobin A1c 11.5 H Calcium GGT AST ALT 54 H Lactate Dehydrogenase C-Reactive Protein 17.7 H Total Protein Albumin Triglycerides Urine Glucose (UA) Hyaline Casts Synovial Neutrophils 88 H 01/27/20 01/28/20 01/28/20 17:17 05:15 05:15 Seg Neutrophils % Lymphocytes % Metamyelocytes % 1 H ESR Chloride Creatinine Glucose 246 H Hemoglobin A1c Calcium 8.4 L GGT 66 H AST ALT 41 H Lactate Dehydrogenase C-Reactive Protein Total Protein Albumin Triglycerides 266 H Urine Glucose (UA) >=500 A Hyaline Casts 31 H Synovial Neutrophils 01/29/20 01/29/20 01/30/20 05:10 05:10 04:51 Seg Neutrophils % 84 H Lymphocytes % 11 L Metamyelocytes % ESR Chloride Creatinine 1.3 H Glucose 390 H 249 H Hemoglobin A1c Calcium 8.3 L GGT 78 H 158 H AST 38 H 175 H ALT 55 H 150 H Lactate Dehydrogenase 305 H C-Reactive Protein Total Protein 5.8 L Albumin 3.1 L Triglycerides Urine Glucose (UA) Hyaline Casts Synovial Neutrophils Microbiology: Microbiology 01/27/20 17:41 Blood Blood Culture - Preliminary Gram positive cocci 01/27/20 17:44 Blood Blood Culture - Preliminary 01/27/20 16:20 Synovial Fluid Gram Stain - Final 01/27/20 16:20 Synovial Fluid Body Fluid Culture - Final 01/27/20 17:05 Nose - Both Right and Left MRSA (PCR) - Final A/P Narrative A/P Narrative: A: 1. 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 Uncontrolled DM2 3. Penicillin allergy: original reaction was 20 years ago, with symptoms of skin rash and throat tightness - no reaction with oral challenge 4. 1/2 sets of blood Cx +ve for Micrococcus luteus: - likely a skin contaminant Recommendations: - Continue IV Vancomycin per pharmacy assisted dosing. Vanc trough of 18 noted - Continue IV Ceftriaxone 2 gm q24 hrs - start PO Rifampin 300 mg bid - agree with repeating blood Cx today. If they are negative by Friday (02/01/20) evening, a PICC line could be placed - anticipate at least 6 weeks of IV antibiotics followed by 4.5 mnths of PO antibiotics - pt underwent PO Amoxicillin 250 mg oral challenge after consent. No reaction observed after 1 hr. Penicillin allergy label removed from chart will follow Nam Tobar MD Infectious Diseases Time Spent With Patient Time: Total time spent is greater than 50% in coordination of care (as documented) at patient's floor/unit and/or counseling patient:
[2020-01-30] MEDS: ACETAMINOPHEN 325 MG TABLET PO PRN (19:20)
[2020-01-30] MEDS: SENNOSIDES 1 TABLET PO SCH ×2 (20:48→21:02)
[2020-01-30] MEDS: ATORVASTATIN 10 MG TABLET PO SCH (20:48)
[2020-01-30] MEDS: SENNOSIDES/DOCUSATE SODIUM 1 TAB TABLET PO SCH (21:01)
[2020-01-31] MEDS: RIFAMPIN 300 MG CAPSULE PO SCH ×3 (00:12→21:07)
[2020-01-31] MEDS: HYDROcodone/APAP 10/325MG TABLET PO PRN ×6 (00:51→21:07)
[2020-01-31] MEDS: 0.9 % SODIUM CHLORIDE 10 ML SYRINGE IV SCH ×5 (05:59→21:07)
[2020-01-31 06:32] LABS: Hematocrit 35.6 % (34.1-44.9); Hemoglobin 11.7 g/dL (11.2-15.7); Mean Cell Volume 96.7 fL (80.0-100.0); Mean Corpuscular HGB Conc 32.9 g/dL (31.0-36.0); Mean Platelet Volume 9.6 fL (7.4-10.4); Platelet Count 172 K/mcL (140-440); RBC 3.68 M/mcL (3.59-5.38); Red Cell Distribution Width 11.9 % (11.5-14.5); WBC 6.7 K/mcL (4.50-11.00)
[2020-01-31 06:57] LABS: ALT/SGPT 127 U/l (0-40); AST/SGOT 80 U/l (0-37); Albumin 3.2 gm/dL (3.2-5.2); Albumin/Globulin Ratio 1.1 (1.0-2.3); Alkaline Phosphatase 82 U/L (39-117); Bilirubin,Direct < 0.2 mg/dL (0.0-0.3); Bilirubin,Total 0.5 mg/dL (0.0-1.0); Blood Urea Nitrogen 16 mg/dl (8-23); Calcium 8.7 mg/dl (8.6-10.4); Carbon Dioxide 25 mmol/L (22-30); Chloride 102 mmol/L (96-108); Globulin 2.8 gm/dL (2.2-3.7); Glucose 162 mg/dL (70-105); Lactate Dehydrogenase 238 U/L (94-250); Phosphorous 3.5 mg/dL (2.7-4.5); Triglycerides 164 mg/dl (<150); Uric Acid 5.9 mg/dL (2.5-8.0)
[2020-01-31 07:02] LABS: Glomerular Filtration Rate 60
--- NOTE | 2020-01-31 07:12 | Operative Note ---
DATE OF OPERATION: 01/28/2020 PREOPERATIVE DIAGNOSIS: Right septic joint. POSTOPERATIVE DIAGNOSIS: Right septic joint. PROCEDURE: Right total knee revision of the poly liner and I and D of the wound. SURGEON: Rodrigo Aparicio MD UI APPLICATION DEVELOPER: Tyler Navarrete PA-C. This provider's expertise and technical skill were required throughout the case. The PA assisted with preoperative coordination, intraoperative retraction, wound closure, dressing and splint application, as well as postoperative documentation and care coordination. COMPLICATIONS: None. TOURNIQUET: 30 minutes. ESTIMATED BLOOD LOSS: 100 mL LAB: Cultures were not sent; they would have been sent prior. IV ANTIBIOTICS: Preop antibiotics given vancomycin 1.5 grams. DESCRIPTION OF PROCEDURE: The patient was brought to the operating room and put to sleep with general LMA anesthesia. Once asleep, the patient had the right leg sterilely prepped and draped in the usual sterile fashion. Timeout was performed confirming this as the operative site by initials, consent form and x-rays. A midline incision was made, midvastus approach performed. We identified cloudy fluid. The poly liner was removed. We then performed a synovectomy of the joint, excising the inner lining of the capsule and then thoroughly irrigating with 6 liters of IrriSept. Once this was thoroughly irrigated, we then placed a new liner, which was 10 mm thick instead of 9 and 3 mm in diameter for the tray. This was inserted. This was the new E-poly. This was inserted. The knee was taken through a range of motion. It was very stable. We irrigated again and closed the vastus approach with #1 Stratafix x2 sutures. We closed the skin with Monocryl and katrin. The patient tolerated this well. There were no complications. Tourniquet was deflated at 30 minutes. RBH:kalani Job ID: [id number] Doc ID: [id number] Rodrigo Aparicio MD
[2020-01-31] MEDS: metFORMIN 850 MG TABLET PO SCH ×3 (07:57→16:47)
[2020-01-31] MEDS: cefTRIAXone 2 GM in DEXTROSE 5% IN WATER 50 ML IV SCH (07:59)
[2020-01-31] MEDS: GLIMEPIRIDE 2 MG TABLET PO SCH ×2 (08:19→16:47)
[2020-01-31] MEDS: INSULIN LISPRO 1 UNIT/0.01 ML UNIT SQ SCH ×5 (08:19→21:10)
[2020-01-31] MEDS ORDERED: INSULIN GLARGINE, HUMAN 1 UNIT/0.01 ML SQ SCH (09:00)
[2020-01-31] MEDS: ASPIRIN 325 MG ENTERIC COATED TABLET PO SCH ×2 (09:21→21:07)
[2020-01-31] MEDS: OXYBUTYNIN CHLORIDE 5 MG TAB.XL.24H PO SCH (09:22)
[2020-01-31] MEDS: GABAPENTIN 300 MG CAPSULE PO SCH ×3 (09:22→21:07)
[2020-01-31] MEDS: MULTIVIT,THER IRON,CA,FA & MIN 1 TABLET PO SCH (09:22)
[2020-01-31] MEDS: buPROPion 150 MG TAB.XL.24H PO SCH (09:22)
[2020-01-31] MEDS: LISINOPRIL 10 MG TABLET PO SCH (09:22)
[2020-01-31] MEDS: sitaGLIPtin 100 MG TABLET PO SCH (09:22)
[2020-01-31] MEDS: HYDROCHLOROTHIAZIDE 12.5 MG CAPSULE PO SCH (09:22)
[2020-01-31 09:25] LABS: Eosinophils % (Manual) 5 % (0-7); Lymphocytes % 20 % (15-49); Monocytes % (Manual) 10 % (1-12); Platelet Estimate NORMAL (NORMAL); RBC Morphology NORMAL (NORMAL); Segmented Neutrophils % 65 % (38-78)
[2020-01-31] MEDS: DOCUSATE SODIUM 100 MG CAPSULE PO SCH ×2 (09:30→21:08)
[2020-01-31] MEDS: VANCOMYCIN 1,000 MG in 0.9 % SODIUM CHLORIDE 250 ML IV SCH ×2 (09:33→21:08)
--- NOTE | 2020-01-31 09:33 | Internal Med Progress Note ---
SUBJECTIVE Subjective Patient information: Note initiated : 01/31/20 at 9:30 am Service Date, if different from initiated Date: [] Patient: Jeannie Esposito a 64 y/o F admitted on 01/27/20 for R knee pain x2D. Chief Complaint: [] History of present illness: Ms. Esposito is a 64 year old F with a history of diabetes/hyperlipidemia/HTN anxiety disorder and DJD who presents to the ER with 2 days onset of right lower extremity redness swelling and pain during ambulation and weightbearing. Patient symptoms accompanied with fever. She denies trauma/recent URI, skin infections. She denies recent hospitalization. Initial work-up in the ER included arthrocentesis which revealed purulent aspira te. Cultures along with Gram stain/joint fluid studies were sent. Orthopedics was consulted and recommended hospitalization for operative intervention in the next 24 hours. Subsequently hospital service was consulted. At the time of my evaluation patient is alert and oriented. She denies headac he, chest pain, diarrhea, dysuria, nausea, vomiting. She further denies penetrating wound. 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 01/27 -patient awaiting surgery. No overnight events. No concerns per staff. Synovial cell count 55,000 with 88% neutrophils. Patient undergo joint washout today. Continue antibiotic coverage and de-escalate based on cultures once available. 01/28-patient postop day 1. Doing well. On antibiotic coverage. Cultures negative so far. Afebrile. White count 9.8. A1c 11.5. Elevated blood sugars. 01/29-patient doing well. No overnight events. Blood sugars gradually trending down. Continue CC diet. GPC bacteremia. Surveillance cultures pending. Infectious is consulted. Currently on Rocephin/vancomycin. No significant pain. Able to weight-bear. Case discussed with orthopedics and will likely discharge on antibiotics once identified and duration as per determination of infectious disease specialist 01/30. Patient doing well. Complains of right knee postoperative pain. Surveillance cultures negative so far. Continuing on rifampin 300 twice daily along with vancomycin Rocephin. Plan to place PICC line in 24 hours if negative cultures. No overnight fever chills Constitutional Vitals: Vital Signs Temp Pulse Resp BP Pulse Ox 97.8 F 68 20 145/83 94 01/31/20 08:00 01/31/20 08:00 01/31/20 08:00 01/31/20 08:00 01/31/20 08:00 Period Temp Pulse Resp BP Sys/Kelley Pulse Ox Last 24 Hr 97.8 F-98.9 F 68-79 14-24 122-156/75-88 93-96 Intake and Output 01/30/20 01/31/20 01/31/20 21:59 05:59 13:59 Intake Total 800 Output Total 1800 2750 Balance -1800 -1950 Weight 90.628 kg Intake & Output: Intake & Output 01/30/20 01/31/20 01/31/20 21:59 05:59 13:59 Intake Total 800 Output Total 1800 2750 Balance -1800 1950 Weight 90.628 kg Intake: Oral 800 Output: Void Amount 1800 2750 Other: Meal Dinner Percent of Meal Consumed 50% Urine Appearance Clear Clear Urine Color Bright Yellow Bright Yellow # Voids 1 nonlabored breathing Right knee pain swelling improving No anxiety OBJ DATA Labs CBC & Chem 7: 01/31/20 05:00 01/31/20 05:00 Labs: Abnormal Lab Results 01/31/20 01/30/20 01/29/20 05:00 04:51 05:10 Seg Neutrophils % Lymphocytes % Creatinine 1.3 H Glucose 162 H 249 H 390 H Calcium 8.3 L GGT 191 H 158 H 78 H AST 80 H 175 H 38 H ALT 127 H 150 H 55 H Lactate Dehydrogenase 305 H Total Protein 5.8 L Albumin 3.1 L Triglycerides 164 H 01/29/20 05:10 Seg Neutrophils % 84 H Lymphocytes % 11 L Creatinine Glucose Calcium GGT AST ALT Lactate Dehydrogenase Total Protein Albumin Triglycerides Meds: Medications Acetaminophen (Tylenol) 650 mg PO Q6HP PRN PRN Reason: PAIN/FEVER > 101 Last Admin: 01/30/20 19:20 Dose: 650 mg Documented by: Hydrocodone Bitart/Acetaminophen ([place] 10/325mg) 0 tab PO Q4HP PRN PRN Reason: PAIN LEVEL 3-6 Last Admin: 01/31/20 07:57 Dose: 2 tab Documented by: Aspirin (Ecotrin) 325 mg PO BID [facility] Last Admin: 01/31/20 09:21 Dose: 325 mg Documented by: Atorvastatin Calcium (Lipitor) 10 mg PO HS [facility] Last Admin: 01/30/20 20:48 Dose: 10 mg Documented by: Bisacodyl (Dulcolax) 10 mg VT Q2-3DAYS PRN PRN Reason: Constipation Bupropion HCl (Wellbutrin Xl) 300 mg PO DAILY [facility] Last Admin: 01/31/20 09:22 Dose: 300 mg Documented by: Dextrose (Dextrose 50%) 0 ml IV UD PRN PRN Reason: Hypoglycemia Diagnostic Test (Pha) (Accu-Chek) 1 each FS ACHS [facility] Last Admin: 01/31/20 08:02 Dose: 1 each Documented by: Docusate Sodium (Colace) 100 mg PO BID [facility] Last Admin: 01/31/20 09:30 Dose: Not Given Documented by: Gabapentin (Neurontin) 300 mg PO TID [facility] Last Admin: 01/31/20 09:22 Dose: 300 mg Documented by: Glimepiride (Amaryl) 2 mg PO BIDAC [facility] Last Admin: 01/31/20 08:19 Dose: 2 mg Documented by: Glucose (Insta-Glucose) 15 gm PO PRN PRN PRN Reason: Hypoglycemia Hydrochlorothiazide (Oretic) 12.5 mg PO DAILY [facility] Last Admin: 01/31/20 09:22 Dose: 12.5 mg Documented by: Hydromorphone HCl (Dilaudid) 0.25 - 0.5 mg IV Q4HP PRN; Protocol PRN Reason: Per Pain Protocol Last Admin: 01/29/20 12:37 Dose: 0.25 mg Documented by: Acetaminophen (Ofirmev) 650 mg in 65 mls @ 130 mls/hr IV Q6HP PRN; Protocol PRN Reason: Per Pain Protocol/Fever > 101 Last Infusion: 01/29/20 16:23 Dose: Infused Documented by: Potassium Chloride 40 meq/ (Dextrose) 520 mls @ 130 mls/hr IV UD PRN PRN Reason: K+ = or < 3.5 Magnesium Sulfate (Magnesium Sulfate) 2 gm in 50 mls @ 50 mls/hr IV UD PRN PRN Reason: MG = or < 1.7 Last Admin: 01/30/20 09:45 Dose: 50 mls/hr Documented by: Ceftriaxone Sodium 2 gm/ (Dextrose) 50 mls @ 100 mls/hr IV Q24H [facility]; Protocol Last Admin: 01/31/20 07:59 Dose: 100 mls/hr Documented by: Vancomycin HCl 1,000 mg/ (Sodium Chloride) 250 mls @ 250 mls/hr IV Q12H [facility] Last Admin: 01/30/20 20:49 Dose: 250 mls/hr Documented by: Insulin Glargine (Lantus) 36 unit SQ DAILY [facility] Last Admin: 01/31/20 09:23 Dose: 36 units Documented by: Insulin Human Lispro (Humalog) 0 unit SQ ACHS [facility]; Protocol Last Admin: 01/31/20 08:19 Dose: 2 units Documented by: Iron Carb/Multivit/Soap Mixer/Folic Acid (Multivitamin W/Minerals) 1 tab PO DAILY [facility] Last Admin: 01/31/20 09:22 Dose: 1 tab Documented by: Ketorolac Tromethamine (Toradol) 15 mg IV Q6HP PRN PRN Reason: pain Last Admin: 01/29/20 23:06 Dose: 15 mg Documented by: Lisinopril (Zestril) 10 mg PO DAILY [facility] Last Admin: 01/31/20 09:22 Dose: 10 mg Documented by: Magnesium Hydroxide (Milk Of Magnesia) 30 ml PO BIDP PRN PRN Reason: Constipation Melatonin (Melatonin 3mg Tablet) 3 mg PO HSP PRN PRN Reason: Insomnia Metformin HCl (Glucophage) 850 mg PO TIDCC [facility] Last Admin: 01/31/20 07:57 Dose: 850 mg Documented by: Ondansetron HCl (Zofran Odt) 4 mg SL Q4-6HP PRN; Protocol PRN Reason: Nausea And Vomiting Ondansetron HCl (Zofran) 4 mg IV Q4HP PRN PRN Reason: Nausea And Vomiting Oxybutynin Chloride (Ditropan Xl) 10 mg PO DAILY [facility] Last Admin: 01/31/20 09:22 Dose: 10 mg Documented by: Polyethylene Glycol (Miralax) 17 gm PO DAILYP PRN PRN Reason: Constipation Potassium Chloride (Klor-Con) 40 meq PO DAILYP PRN PRN Reason: K+ < 3.5 Rifampin (Rifampin) 300 mg PO BID@0700,2000 [facility]; Protocol Last Admin: 01/31/20 07:58 Dose: 300 mg Documented by: Keiran (Senokot) 1 tab PO HS [facility] Last Admin: 01/30/20 21:02 Dose: Not Given Documented by: Senna/Docusate Sodium (Senna Plus Tablet) 1 tab PO HS [facility] Last Admin: 01/30/20 21:01 Dose: Not Given Documented by: Sitagliptin Phosphate (Januvia) 100 mg PO DAILY [facility] Last Admin: 01/31/20 09:22 Dose: 100 mg Documented by: Sodium Biphosphate/Sodium Phosphate (Fleets Adult) 1 dose VT Q3-4DAYS PRN PRN Reason: Constipation Sodium Chloride (Saline Flush) 10 ml IV Q8 [facility] Last Admin: 01/31/20 05:59 Dose: Not Given Documented by: Sodium Chloride (Saline Flush) 10 ml IV Q8 [facility] Last Admin: 01/31/20 09:23 Dose: 10 ml Documented by: Throat Lozenges (Cepacol) 1 lozenge PO PRN PRN PRN Reason: Sore Throat Last Admin: 01/29/20 04:40 Dose: 1 lozenge Documented by: Vancomycin HCl (Vancomycin Per Pharmacy) 1 order IV UD [facility]; Protocol A/P Narrative A/P Narrative: * GPC bacteremia-surveillance cultures pending. On Rocephin/vancomycin. * Right knee prosthetic joint septic arthritis. Postop day 2. Arthrocentesis fluid 55,000 cell count/88% neutrophils. Cultures negative so far. Continue vancomycin/Rocephin. ID consulted. * Poorly controlled DM type II , improved blood sugar now at 160s. Continue basal prandial insulin/CC diet/metformin/glimepiride/sitagliptin * Hypertension well-controlled on lisinopril/thiazide * Neuropathy continue gabapentin * Degenerative joint disease continue hydrocodone * Anxiety disorder continue bupropion * prophylaxis Heparin Plan * Continue antibiotics per ID * PICC line 01/31 * Await surveillance cultures * Continue pre-existing medical condition management as above * Continue basal insulin to 36 units * PT OT nutrition support Time Spent With Patient Time: Total time spent is greater than 50% in coordination of care (as documented) at patient's floor/unit and/or counseling patient: QUALITY VTE Deep Vein Thrombosis/Pulmonary Embolism Present on Admission: No
--- NOTE | 2020-01-31 11:37 | Internal Med Progress Note ---
SUBJECTIVE Subjective Patient information: Note initiated : 01/31/20 at 11:35 am Service Date, if different from initiated Date: [] Patient: Jeannie Esposito 64 y/o F admitted on 01/27/20 for R knee pain x2D. Chief Complaint: [Pt feels same as yesterday regarding knee pain. Denied any fever, chills, n/v, diarrhea, belly pain.] Constitutional Vitals: Vital Signs Temp Pulse Resp BP Pulse Ox 36.6 C 68 20 145/83 94 01/31/20 08:00 01/31/20 08:00 01/31/20 08:00 01/31/20 08:00 01/31/20 08:00 Period Temp Pulse Resp BP Sys/Kelley Pulse Ox Last 24 Hr 36.6 C-37.2 C 68-79 14-24 122-156/75-88 93-96 Intake and Output 01/30/20 01/31/20 01/31/20 21:59 05:59 13:59 Intake Total 250 800 240 Output Total 1800 2750 Balance -1550 -1950 240 Weight 90.628 kg Intake & Output: Intake & Output 01/30/20 01/31/20 01/31/20 21:59 05:59 13:59 Intake Total 250 800 240 Output Total 1800 2750 Balance -1550 -1950 240 Weight 90.628 kg Intake: IV 250 Vancomycin 1,000 mg In Sodium 250 Chloride 0.9% 250 ml @ 250 mls/ hr IV Q12H [facility] Rx#:[id number] Oral 800 240 Output: Void Amount 1800 2750 Other: Meal Dinner Breakfast Percent of Meal Consumed 50% 100% Feeding Ability Assist with Tray Set Up Urine Appearance Clear Clear Urine Color Bright Yellow Bright Yellow # Voids 1 Additional findings Additional findings: ao x 3, in nad no thrush chest cta s1 s2 normal abd: non tender, non distended right knee: has a bruise on medial aspect, surgical incision covered by dressing. No drainage seen around the dressing. Range of motion limited and painful. no distal leg edema OBJ DATA Labs CBC & Chem 7: 02/01/20 05:30 02/01/20 05:30 Labs: Abnormal Lab Results 01/31/20 01/30/20 01/29/20 05:00 04:51 05:10 Seg Neutrophils % Lymphocytes % Creatinine 1.3 H Glucose 162 H 249 H 390 H Calcium 8.3 L GGT 191 H 158 H 78 H AST 80 H 175 H 38 H ALT 127 H 150 H 55 H Lactate Dehydrogenase 305 H Total Protein 5.8 L Albumin 3.1 L Triglycerides 164 H 01/29/20 05:10 Seg Neutrophils % 84 H Lymphocytes % 11 L Creatinine Glucose Calcium GGT AST ALT Lactate Dehydrogenase Total Protein Albumin Triglycerides Meds: Medications Acetaminophen (Tylenol) 650 mg PO Q6HP PRN PRN Reason: PAIN/FEVER > 101 Last Admin: 01/30/20 19:20 Dose: 650 mg Documented by: Hydrocodone Bitart/Acetaminophen ([place] 10/325mg) 0 tab PO Q4HP PRN PRN Reason: PAIN LEVEL 3-6 Last Admin: 01/31/20 07:57 Dose: 2 tab Documented by: Aspirin (Ecotrin) 325 mg PO BID [facility] Last Admin: 01/31/20 09:21 Dose: 325 mg Documented by: Atorvastatin Calcium (Lipitor) 10 mg PO HS [facility] Last Admin: 01/30/20 20:48 Dose: 10 mg Documented by: Bisacodyl (Dulcolax) 10 mg IA Q2-3DAYS PRN PRN Reason: Constipation Bupropion HCl (Wellbutrin Xl) 300 mg PO DAILY [facility] Last Admin: 01/31/20 09:22 Dose: 300 mg Documented by: Dextrose (Dextrose 50%) 0 ml IV UD PRN PRN Reason: Hypoglycemia Diagnostic Test (Pha) (Accu-Chek) 1 each FS ACHS [facility] Last Admin: 01/31/20 08:02 Dose: 1 each Documented by: Docusate Sodium (Colace) 100 mg PO BID [facility] Last Admin: 01/31/20 09:30 Dose: Not Given Documented by: Gabapentin (Neurontin) 300 mg PO TID [facility] Last Admin: 01/31/20 09:22 Dose: 300 mg Documented by: Glimepiride (Amaryl) 2 mg PO BIDAC [facility] Last Admin: 01/31/20 08:19 Dose: 2 mg Documented by: Glucose (Insta-Glucose) 15 gm PO PRN PRN PRN Reason: Hypoglycemia Hydrochlorothiazide (Oretic) 12.5 mg PO DAILY [facility] Last Admin: 01/31/20 09:22 Dose: 12.5 mg Documented by: Hydromorphone HCl (Dilaudid) 0.25 - 0.5 mg IV Q4HP PRN; Protocol PRN Reason: Per Pain Protocol Last Admin: 01/29/20 12:37 Dose: 0.25 mg Documented by: Acetaminophen (Ofirmev) 650 mg in 65 mls @ 130 mls/hr IV Q6HP PRN; Protocol PRN Reason: Per Pain Protocol/Fever > 101 Last Infusion: 01/29/20 16:23 Dose: Infused Documented by: Potassium Chloride 40 meq/ (Dextrose) 520 mls @ 130 mls/hr IV UD PRN PRN Reason: K+ = or < 3.5 Magnesium Sulfate (Magnesium Sulfate) 2 gm in 50 mls @ 50 mls/hr IV UD PRN PRN Reason: MG = or < 1.7 Last Admin: 01/30/20 09:45 Dose: 50 mls/hr Documented by: Ceftriaxone Sodium 2 gm/ (Dextrose) 50 mls @ 100 mls/hr IV Q24H [facility]; Protocol Last Admin: 01/31/20 07:59 Dose: 100 mls/hr Documented by: Vancomycin HCl 1,000 mg/ (Sodium Chloride) 250 mls @ 250 mls/hr IV Q12H [facility] Last Admin: 01/31/20 09:33 Dose: 250 mls/hr Documented by: Insulin Glargine (Lantus) 36 unit SQ DAILY [facility] Last Admin: 01/31/20 09:23 Dose: 36 units Documented by: Insulin Human Lispro (Humalog) 0 unit SQ ACHS [facility]; Protocol Last Admin: 01/31/20 08:19 Dose: 2 units Documented by: Iron Carb/Multivit/Senior Pl Sql Developer/Folic Acid (Multivitamin W/Minerals) 1 tab PO DAILY [facility] Last Admin: 01/31/20 09:22 Dose: 1 tab Documented by: Ketorolac Tromethamine (Toradol) 15 mg IV Q6HP PRN PRN Reason: pain Last Admin: 01/29/20 23:06 Dose: 15 mg Documented by: Lisinopril (Zestril) 10 mg PO DAILY [facility] Last Admin: 01/31/20 09:22 Dose: 10 mg Documented by: Magnesium Hydroxide (Milk Of Magnesia) 30 ml PO BIDP PRN PRN Reason: Constipation Melatonin (Melatonin 3mg Tablet) 3 mg PO HSP PRN PRN Reason: Insomnia Metformin HCl (Glucophage) 850 mg PO TIDCC [facility] Last Admin: 01/31/20 07:57 Dose: 850 mg Documented by: Ondansetron HCl (Zofran Odt) 4 mg SL Q4-6HP PRN; Protocol PRN Reason: Nausea And Vomiting Ondansetron HCl (Zofran) 4 mg IV Q4HP PRN PRN Reason: Nausea And Vomiting Oxybutynin Chloride (Ditropan Xl) 10 mg PO DAILY [facility] Last Admin: 01/31/20 09:22 Dose: 10 mg Documented by: Polyethylene Glycol (Miralax) 17 gm PO DAILYP PRN PRN Reason: Constipation Potassium Chloride (Klor-Con) 40 meq PO DAILYP PRN PRN Reason: K+ < 3.5 Rifampin (Rifampin) 300 mg PO BID@0700,1999 [facility]; Protocol Last Admin: 01/31/20 07:58 Dose: 300 mg Documented by: Senna (Senokot) 1 tab PO [facility] Last Admin: 01/30/20 21:02 Dose: Not Given Documented by: Senna/Docusate Sodium (Senna Plus Tablet) 1 tab PO [facility] Last Admin: 01/30/20 21:01 Dose: Not Given Documented by: Sitagliptin Phosphate (Januvia) 100 mg PO DAILY [facility] Last Admin: 01/31/20 09:22 Dose: 100 mg Documented by: Sodium Biphosphate/Sodium Phosphate (Fleets Adult) 1 dose IA Q3-4DAYS PRN PRN Reason: Constipation Sodium Chloride (Saline Flush) 10 ml IV Q8 [facility] Last Admin: 01/31/20 05:59 Dose: Not Given Documented by: Sodium Chloride (Saline Flush) 10 ml IV Q8 [facility] Last Admin: 01/31/20 09:23 Dose: 10 ml Documented by: Throat Lozenges (Cepacol) 1 lozenge PO PRN PRN PRN Reason: Sore Throat Last Admin: 01/29/20 04:40 Dose: 1 lozenge Documented by: Vancomycin HCl (Vancomycin Per Pharmacy) 1 order IV [facility]; Protocol A/P Narrative A/P Narrative: A: 1. 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 Uncontrolled DM2 3. Penicillin allergy: original reaction was 20 years ago, with symptoms of skin rash and throat tightness - no reaction with oral challenge on 01/30/2020 4. 1/4 bottles of blood Cx +ve from 01/26 for Micrococcus luteus: - likely a skin contaminant Recommendations: - Continue IV Vancomycin per pharmacy assisted dosing. Vanc trough of 18 (01/29) and Vanc level of 13 (today) noted - Continue IV Ceftriaxone 2 gm q24 hrs - continue PO Rifampin 300 mg bid - spoke with Microbiology lab about prolonged incubation for 12 days to see if there is any growth of microaerophillic organisms such as Cutibacterium acnes (previously called P acnes) -If repeat blood Cx from 01/30/2020 are negative by Friday (02/01/20) afternoon, a PICC line could be placed - will decide on home going antibiotics based on Cx status, whether [facility] can manage IV Vanc dosing and adjust it to prevent nephrotoxicity, and whether Daptomycin is covered by insurance. Appreciate case management looking into all these factors will follow Nam Tobar MD Infectious Diseases Time Spent With Patient Time: Total time spent is greater than 50% in coordination of care (as documented) at patient's floor/unit and/or counseling patient: QUALITY VTE Deep Vein Thrombosis/Pulmonary Embolism Present on Admission: No
[2020-01-31] MEDS: ONDANSETRON 4 MG/2 ML VIAL IV PRN (18:48)
[2020-01-31] MEDS: ATORVASTATIN 10 MG TABLET PO SCH (21:07)
[2020-01-31] MEDS: SENNOSIDES 1 TABLET PO SCH (21:08)
[2020-01-31] MEDS: KETOROLAC 15 MG/ML VIAL IV PRN (23:40)
[2020-02-01] MEDS: HYDROcodone/APAP 10/325MG TABLET PO PRN ×4 (00:53→16:15)
[2020-02-01] MEDS: 0.9 % SODIUM CHLORIDE 10 ML SYRINGE IV SCH ×4 (04:46→20:29)
[2020-02-01 07:02] LABS: Hematocrit 34.8 % (34.1-44.9); Hemoglobin 11.3 g/dL (11.2-15.7); Mean Cell Volume 96.9 fL (80.0-100.0); Mean Corpuscular HGB Conc 32.5 g/dL (31.0-36.0); Mean Platelet Volume 9.4 fL (7.4-10.4); Platelet Count 184 K/mcL (140-440); RBC 3.59 M/mcL (3.59-5.38); Red Cell Distribution Width 11.8 % (11.5-14.5); WBC 5.6 K/mcL (4.50-11.00)
[2020-02-01] MEDS: RIFAMPIN 300 MG CAPSULE PO SCH (07:48)
[2020-02-01] MEDS: GLIMEPIRIDE 2 MG TABLET PO SCH ×2 (07:49→18:01)
[2020-02-01] MEDS: cefTRIAXone 2 GM in DEXTROSE 5% IN WATER 50 ML IV SCH (07:49)
[2020-02-01] MEDS: INSULIN LISPRO 1 UNIT/0.01 ML UNIT SQ SCH ×4 (07:51→20:14)
[2020-02-01 07:57] LABS: ALT/SGPT 112 U/l (0-40); AST/SGOT 68 U/l (0-37); Alkaline Phosphatase 79 U/L (39-117); Bilirubin,Direct 0.4 mg/dL (0.0-0.3); Bilirubin,Total 1.1 mg/dL (0.0-1.0); Blood Urea Nitrogen 14 mg/dl (8-23); Calcium 9.1 mg/dl (8.6-10.4); Carbon Dioxide 27 mmol/L (22-30); Chloride 97 mmol/L (96-108); Globulin 2.9 gm/dL (2.2-3.7); Glomerular Filtration Rate 60; Glucose 147 mg/dL (70-105); Lactate Dehydrogenase 235 U/L (94-250); Triglycerides 129 mg/dl (<150); Uric Acid 6.2 mg/dL (2.5-8.0)
[2020-02-01] MEDS: KETOROLAC 15 MG/ML VIAL IV PRN (07:58)
[2020-02-01] MEDS: metFORMIN 850 MG TABLET PO SCH ×3 (07:58→18:29)
[2020-02-01 08:14] LABS: Phosphorous 4.6 mg/dL (2.7-4.5)
[2020-02-01 08:38] LABS: Eosinophils % (Manual) 3 % (0-7); Lymphocytes % 18 % (15-49); Monocytes % (Manual) 7 % (1-12); Platelet Estimate NORMAL (NORMAL); RBC Morphology NORMAL (NORMAL); Segmented Neutrophils % 72 % (38-78)
[2020-02-01] MEDS: buPROPion 150 MG TAB.XL.24H PO SCH (10:08)
[2020-02-01] MEDS: ASPIRIN 325 MG ENTERIC COATED TABLET PO SCH ×2 (10:08→19:57)
[2020-02-01] MEDS: OXYBUTYNIN CHLORIDE 5 MG TAB.XL.24H PO SCH (10:09)
[2020-02-01] MEDS: GABAPENTIN 300 MG CAPSULE PO SCH ×3 (10:09→19:57)
[2020-02-01] MEDS: MULTIVIT,THER IRON,CA,FA & MIN 1 TABLET PO SCH (10:10)
[2020-02-01] MEDS: sitaGLIPtin 100 MG TABLET PO SCH (10:10)
[2020-02-01] MEDS: LISINOPRIL 10 MG TABLET PO SCH (10:10)
[2020-02-01] MEDS: VANCOMYCIN 1,000 MG in 0.9 % SODIUM CHLORIDE 250 ML IV SCH ×2 (10:19→20:28)
[2020-02-01] MEDS: INSULIN GLARGINE, HUMAN 1 UNIT/0.01 ML SQ SCH (10:19)
[2020-02-01] MEDS: DOCUSATE SODIUM 100 MG CAPSULE PO SCH ×2 (10:19→19:49)
[2020-02-01] MEDS: HYDROCHLOROTHIAZIDE 12.5 MG CAPSULE PO SCH (10:43)
--- NOTE | 2020-02-01 10:54 | Internal Med Progress Note ---
SUBJECTIVE Subjective Patient information: Note initiated : 02/01/20 at 10:43 am Service Date, if different from initiated Date: [] Patient: Jeannie Esposito a 64 y/o F admitted on 01/27/20 for R knee pain x2D. Chief Complaint: [] History of present illness: Ms. Esposito is a 64 year old F with a history of diabetes/hyperlipidemia/HTN anxiety disorder and DJD who presents to the ER with 2 days onset of right lower extremity redness swelling and pain during ambulation and weightbearing. Patient symptoms accompanied with fever. She denies trauma/recent URI, skin infections. She denies recent hospitalization. Initial work-up in the ER included arthrocentesis which revealed purulent aspi rate. Cultures along with Gram stain/joint fluid studies were sent. Orthopedics was consulted and recommended hospitalization for operative intervention in the next 24 hours. Subsequently hospital service was consulted. At the time of my evaluation patient is alert and oriented. She denies head ache, chest pain, diarrhea, dysuria, nausea, vomiting. She further denies penetrating wound. 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 01/27 -patient awaiting surgery. No overnight events. No concerns per staff. Synovial cell count 55,000 with 88% neutrophils. Patient undergo joint washout today. Continue antibiotic coverage and de-escalate based on cultures once available. 01/28-patient postop day 1. Doing well. On antibiotic coverage. Cultures negative so far. Afebrile. White count 9.8. A1c 11.5. Elevated blood sugars. 01/29-patient doing well. No overnight events. Blood sugars gradually trending down. Continue CC diet. GPC bacteremia. Surveillance cultures pending. Infectious is consulted. Currently on Rocephin/vancomycin. No significant pain. Able to weight-bear. Case discussed with orthopedics and will likely discharge on antibiotics once identified and duration as per determination of infectious disease specialist 01/30. Patient doing well. Complains of right knee postoperative pain. Surveillance cultures negative so far. Continuing on rifampin 300 twice daily along with vancomycin Rocephin. Plan to place PICC line in 24 hours if negative cultures. No overnight fever chills 01/31-patient continuing on IV antibiotics. LFTs uptrending. Per ID rifampin a nd ceftriaxone discontinued. Ordered gallbladder ultrasound. Continue vancomycin. Blood culture reveals micrococcus likely contaminant. Ongoing therapy/nutrition support. Constitutional Vitals: Vital Signs Temp Pulse Resp BP Pulse Ox 98.1 F 76 16 134/77 94 02/01/20 08:00 02/01/20 08:00 02/01/20 08:00 02/01/20 08:00 02/01/20 08:00 Period Temp Pulse Resp BP Sys/Kelley Pulse Ox Last 24 Hr 97.5 F-98.3 F 65-76 12-18 105-141/53-79 91-96 Intake and Output 01/31/20 02/01/20 02/01/20 21:59 05:59 13:59 Intake Total 2090 850 240 Balance 2090 850 240 Weight 91.852 kg Alert minimal anxiety Nonlabored breathing Persistent pain right knee Intake & Output: Intake & Output 01/31/20 02/01/20 02/01/20 21:59 05:59 13:59 Intake Total 2090 850 240 Balance 2090 850 240 Weight 91.852 kg Intake: IV 250 Vancomycin 1,000 mg In Sodium 250 Chloride 0.9% 250 ml @ 250 mls/ hr IV Q12H [facility] Rx#:[id number] Oral 2090 600 240 Other: Meal Dinner Breakfast Percent of Meal Consumed 100% 100% Feeding Ability Independent Assist with Tray Set Up Stool Size Moderate Stool Color Brown Stool Consistency Normal for Patient # Voids 1 1 # Unmeasured Emesis 1 # Bowel Movements 1 # Emeses 1 OBJ DATA Labs CBC & Chem 7: 02/01/20 05:30 02/01/20 05:30 Labs: Abnormal Lab Results 02/01/20 01/31/20 01/30/20 05:30 05:00 04:51 Creatinine 1.3 H Glucose 147 H 162 H 249 H Calcium 8.3 L Phosphorus 4.6 H Total Bilirubin 1.1 H Direct Bilirubin 0.4 H GGT 216 H 191 H 158 H AST 68 H 80 H 175 H ALT 112 H 127 H 150 H Lactate Dehydrogenase 305 H Total Protein 5.8 L Albumin 3.0 L 3.1 L Triglycerides 164 H Meds: Medications Acetaminophen (Tylenol) 650 mg PO Q6HP PRN PRN Reason: PAIN/FEVER > 101 Last Admin: 01/30/20 19:20 Dose: 650 mg Documented by: Hydrocodone Bitart/Acetaminophen ([place] 10/325mg) 0 tab PO Q4HP PRN PRN Reason: PAIN LEVEL 3-6 Last Admin: 02/01/20 10:08 Dose: 2 tab Documented by: Aspirin (Ecotrin) 325 mg PO BID [facility] Last Admin: 02/01/20 10:08 Dose: 325 mg Documented by: Atorvastatin Calcium (Lipitor) 10 mg PO HS [facility] Last Admin: 01/31/20 21:07 Dose: 10 mg Documented by: Bisacodyl (Dulcolax) 10 mg CA Q2-3DAYS PRN PRN Reason: Constipation Bupropion HCl (Wellbutrin Xl) 300 mg PO DAILY [facility] Last Admin: 02/01/20 10:08 Dose: 300 mg Documented by: Dextrose (Dextrose 50%) 0 ml IV UD PRN PRN Reason: Hypoglycemia Diagnostic Test (Pha) (Accu-Chek) 1 each FS ACHS [facility] Last Admin: 02/01/20 07:49 Dose: 1 each Documented by: Docusate Sodium (Colace) 100 mg PO BID [facility] Last Admin: 02/01/20 10:19 Dose: Not Given Documented by: Gabapentin (Neurontin) 300 mg PO TID [facility] Last Admin: 02/01/20 10:09 Dose: 300 mg Documented by: Glimepiride (Amaryl) 2 mg PO BIDAC [facility] Last Admin: 02/01/20 07:49 Dose: 2 mg Documented by: Glucose (Insta-Glucose) 15 gm PO PRN PRN PRN Reason: Hypoglycemia Hydrochlorothiazide (Oretic) 12.5 mg PO DAILY [facility] Last Admin: 02/01/20 10:43 Dose: 12.5 mg Documented by: Hydromorphone HCl (Dilaudid) 0.25 - 0.5 mg IV Q4HP PRN; Protocol PRN Reason: Per Pain Protocol Last Admin: 01/29/20 12:37 Dose: 0.25 mg Documented by: Acetaminophen (Ofirmev) 650 mg in 65 mls @ 130 mls/hr IV Q6HP PRN; Protocol PRN Reason: Per Pain Protocol/Fever > 101 Last Infusion: 01/29/20 16:23 Dose: Infused Documented by: Potassium Chloride 40 meq/ (Dextrose) 520 mls @ 130 mls/hr IV UD PRN PRN Reason: K+ = or < 3.5 Magnesium Sulfate (Magnesium Sulfate) 2 gm in 50 mls @ 50 mls/hr IV UD PRN PRN Reason: MG = or < 1.7 Last Admin: 01/30/20 09:45 Dose: 50 mls/hr Documented by: Vancomycin HCl 1,000 mg/ (Sodium Chloride) 250 mls @ 250 mls/hr IV Q12H [facility] Last Admin: 02/01/20 10:19 Dose: 250 mls/hr Documented by: Insulin Glargine (Lantus) 40 unit SQ DAILY [facility] Last Admin: 02/01/20 10:19 Dose: 40 units Documented by: Insulin Human Lispro (Humalog) 0 unit SQ ACHS [facility]; Protocol Last Admin: 02/01/20 07:51 Dose: 2 units Documented by: Iron Carb/Multivit/[employer]/Folic Acid (Multivitamin W/Minerals) 1 tab PO DAILY [facility] Last Admin: 02/01/20 10:10 Dose: 1 tab Documented by: Ketorolac Tromethamine (Toradol) 15 mg IV Q6HP PRN PRN Reason: pain Last Admin: 02/01/20 07:58 Dose: 15 mg Documented by: Lisinopril (Zestril) 10 mg PO DAILY [facility] Last Admin: 02/01/20 10:10 Dose: 10 mg Documented by: Magnesium Hydroxide (Milk Of Magnesia) 30 ml PO BIDP PRN PRN Reason: Constipation Melatonin (Melatonin 3mg Tablet) 3 mg PO HSP PRN PRN Reason: Insomnia Metformin HCl (Glucophage) 850 mg PO TIDCC [facility] Last Admin: 02/01/20 07:58 Dose: 850 mg Documented by: Ondansetron HCl (Zofran Odt) 4 mg SL Q4-6HP PRN; Protocol PRN Reason: Nausea And Vomiting Ondansetron HCl (Zofran) 4 mg IV Q4HP PRN PRN Reason: Nausea And Vomiting Last Admin: 01/31/20 18:48 Dose: 4 mg Documented by: Oxybutynin Chloride (Ditropan Xl) 10 mg PO DAILY [facility] Last Admin: 02/01/20 10:09 Dose: 10 mg Documented by: Polyethylene Glycol (Miralax) 17 gm PO DAILYP PRN PRN Reason: Constipation Potassium Chloride (Klor-Con) 40 meq PO DAILYP PRN PRN Reason: K+ < 3.5 Senna (Senokot) 1 tab PO HS [facility] Last Admin: 01/31/20 21:08 Dose: Not Given Documented by: Sitagliptin Phosphate (Januvia) 100 mg PO DAILY [facility] Last Admin: 02/01/20 10:10 Dose: 100 mg Documented by: Sodium Biphosphate/Sodium Phosphate (Fleets Adult) 1 dose CA Q3-4DAYS PRN PRN Reason: Constipation Sodium Chloride (Saline Flush) 10 ml IV Q8 [facility] Last Admin: 02/01/20 04:46 Dose: 10 ml Documented by: Throat Lozenges (Cepacol) 1 lozenge PO PRN PRN PRN Reason: Sore Throat Last Admin: 01/29/20 04:40 Dose: 1 lozenge Documented by: Vancomycin HCl (Vancomycin Per Pharmacy) 1 order IV UD [facility]; Protocol A/P Narrative A/P Narrative: * Right knee prosthetic joint septic arthritis. Postop, Arthrocentesis fluid 55,000 cell count/88% neutrophils. Cultures negative so far. ID recommends continuation of vancomycin while stopping Rocephin/rifampin in light of elevated LFTs * Elevated LFTs possibly drug reaction. Right upper quadrant ultrasound/discontinue rifampin/Rocephin * Poorly controlled DM type II , improved blood sugar now 140s s. Continue uptitrating basal prandial insulin/CC diet/metformin/glimepiride/sitagliptin * Hypertension well-controlled on lisinopril/thiazide * Neuropathy continue gabapentin * Degenerative joint disease continue hydrocodone * Anxiety disorder continue bupropion * prophylaxis Heparin Plan * Continue vancomycin per ID * PICC line later today * Await surveillance cultures * Continue pre-existing medical condition management as above * Continue basal insulin 40 units daily * PT OT nutrition support Time Spent With Patient Time: Total time spent is greater than 50% in coordination of care (as documented) at patient's floor/unit and/or counseling patient: QUALITY VTE Deep Vein Thrombosis/Pulmonary Embolism Present on Admission: No
--- NOTE | 2020-02-01 15:05 | Ultrasound Report ---
History: Elevated liver enzymes FINDINGS: The liver is enlarged and echogenic due to fatty infiltration. No discrete mass is seen. Doppler shows normal blood flow in the hepatic and portal veins. No ascites is present. The gallbladder is normal with no stones or thickening of the wall. Common bile duct measures up to 5.6 mm. Visualized portions of the pancreas are normal. IMPRESSION: Hepatomegaly with fatty infiltration Interpreted and Authenticated by: Arden Isidro 02/01/20
[2020-02-01] MEDS ORDERED: 0.9 % SODIUM CHLORIDE 10 ML SYRINGE IV PRN (18:04)
[2020-02-01] MEDS: SENNOSIDES 1 TABLET PO SCH (19:49)
[2020-02-01] MEDS: ACETAMINOPHEN 325 MG TABLET PO PRN (19:57)
[2020-02-01] MEDS: ATORVASTATIN 10 MG TABLET PO SCH (19:57)
--- NOTE | 2020-02-01 22:26 | Internal Med Progress Note ---
SUBJECTIVE Subjective Patient information: Note initiated : 02/01/20 at 10:10 pm Service Date, if different from initiated Date: [] Patient: Jeannie Esposito 64 y/o F admitted on 01/27/20 for R knee pain x2D. Chief Complaint: [Pt feels her knee pain is slightly better. Had an episode of vomiting last night. Denied any fever, chills, diarrhea, belly pain.] Constitutional Vitals: Vital Signs Temp Pulse Resp BP Pulse Ox 36.7 C 80 20 142/75 94 02/01/20 18:28 02/01/20 18:28 02/01/20 18:28 02/01/20 18:28 02/01/20 18:28 Period Temp Pulse Resp BP Sys/Kelley Pulse Ox Last 24 Hr 36.4 C-37.1 C 65-80 12- 105-152/53-83 91-95 Intake and Output 02/01/20 02/01/20 02/02/20 13:59 21:59 05:59 Intake Total 540 600 Balance 540 600 Weight 90.407 kg Patient Weight 02/02/20 05:59 Weight 90.407 kg Intake & Output: Intake & Output 02/01/20 02/01/20 02/02/20 13:59 21:59 05:59 Intake Total 540 600 Balance 540 600 Weight 90.407 kg Intake: IV 300 Vancomycin 1,000 mg In Sodium 250 Chloride 0.9% 250 ml @ 250 mls/ hr IV Q12H [facility] Rx#:[id number] Rocephin 2 gm In Dextrose 5% in 50 Water 50 ml @ 100 mls/hr IV Q24H [facility] Rx#:[id number] Oral 240 600 Other: Meal Breakfast Lunch Percent of Meal Consumed 100% 100% Feeding Ability Assist with Tray Set Up Independent # Voids 1 Additional findings Additional findings: ao x 3, in nad no thrush chest cta s1 s2 normal bs ++, mild discomfort in RUQ on deep palpation, no hepatomegaly minimal leg edema b/l Rt knee surgical icision covered in dressing. No drainage around it. Bruise on medial aspect of right knee. Range of motion is less painful compared to yesterday. Mild swelling OBJ DATA Labs CBC & Chem 7: 02/01/20 05:30 02/02/20 08:29 Labs: Abnormal Lab Results 02/01/20 01/31/20 01/30/20 05:30 05:00 04:51 Creatinine 1.3 H Glucose 147 H 162 H 249 H Calcium 8.3 L Phosphorus 4.6 H Total Bilirubin 1.1 H Direct Bilirubin 0.4 H GGT 216 H 191 H 158 H AST 68 H 80 H 175 H ALT 112 H 127 H 150 H Lactate Dehydrogenase 305 H Total Protein 5.8 L Albumin 3.0 L 3.1 L Triglycerides 164 H Meds: Medications Acetaminophen (Tylenol) 650 mg PO Q6HP PRN PRN Reason: PAIN/FEVER > 101 Last Admin: 02/01/20 19:57 Dose: 650 mg Documented by: Hydrocodone Bitart/Acetaminophen ([place] 10/325mg) 0 tab PO Q4HP PRN PRN Reason: PAIN LEVEL 3-6 Last Admin: 02/01/20 16:15 Dose: 2 tab Documented by: Aspirin (Ecotrin) 325 mg PO BID [facility] Last Admin: 02/01/20 19:57 Dose: 325 mg Documented by: Atorvastatin Calcium (Lipitor) 10 mg PO HS [facility] Last Admin: 02/01/20 19:57 Dose: 10 mg Documented by: Bisacodyl (Dulcolax) 10 mg MS Q2-3DAYS PRN PRN Reason: Constipation Bupropion HCl (Wellbutrin Xl) 300 mg PO DAILY [facility] Last Admin: 02/01/20 10:08 Dose: 300 mg Documented by: Dextrose (Dextrose 50%) 0 ml IV UD PRN PRN Reason: Hypoglycemia Diagnostic Test (Pha) (Accu-Chek) 1 each FS ACHS [facility] Last Admin: 02/01/20 20:01 Dose: 1 each Documented by: Docusate Sodium (Colace) 100 mg PO BID [facility] Last Admin: 02/01/20 19:49 Dose: Not Given Documented by: Gabapentin (Neurontin) 300 mg PO TID [facility] Last Admin: 02/01/20 19:57 Dose: 300 mg Documented by: Glimepiride (Amaryl) 2 mg PO BIDAC [facility] Last Admin: 02/01/20 18:01 Dose: 2 mg Documented by: Glucose (Insta-Glucose) 15 gm PO PRN PRN PRN Reason: Hypoglycemia Heparin Sodium (Porcine) (Heparin 10 Units/Ml Flush) 2 ml IV DAILY [facility] Hydrochlorothiazide (Oretic) 12.5 mg PO DAILY [facility] Last Admin: 02/01/20 10:43 Dose: 12.5 mg Documented by: Hydromorphone HCl (Dilaudid) 0.25 - 0.5 mg IV Q4HP PRN; Protocol PRN Reason: Per Pain Protocol Last Admin: 01/29/20 12:37 Dose: 0.25 mg Documented by: Acetaminophen (Ofirmev) 650 mg in 65 mls @ 130 mls/hr IV Q6HP PRN; Protocol PRN Reason: Per Pain Protocol/Fever > 101 Last Infusion: 01/29/20 16:23 Dose: Infused Documented by: Potassium Chloride 40 meq/ (Dextrose) 520 mls @ 130 mls/hr IV UD PRN PRN Reason: K+ = or < 3.5 Magnesium Sulfate (Magnesium Sulfate) 2 gm in 50 mls @ 50 mls/hr IV UD PRN PRN Reason: MG = or < 1.7 Last Admin: 01/30/20 09:45 Dose: 50 mls/hr Documented by: Vancomycin HCl 1,000 mg/ (Sodium Chloride) 250 mls @ 250 mls/hr IV Q12H [facility] Last Admin: 02/01/20 20:28 Dose: 250 mls/hr Documented by: Insulin Glargine (Lantus) 40 unit SQ DAILY [facility] Last Admin: 02/01/20 10:19 Dose: 40 units Documented by: Insulin Human Lispro (Humalog) 0 unit SQ ACHS [facility]; Protocol Last Admin: 02/01/20 20:14 Dose: 2 units Documented by: Iron Carb/Multivit/[place]/Folic Acid (Multivitamin W/Minerals) 1 tab PO DAILY [facility] Last Admin: 02/01/20 10:10 Dose: 1 tab Documented by: Ketorolac Tromethamine (Toradol) 15 mg IV Q6HP PRN PRN Reason: pain Last Admin: 02/01/20 07:58 Dose: 15 mg Documented by: Lisinopril (Zestril) 10 mg PO DAILY [facility] Last Admin: 02/01/20 10:10 Dose: 10 mg Documented by: Magnesium Hydroxide (Milk Of Magnesia) 30 ml PO BIDP PRN PRN Reason: Constipation Melatonin (Melatonin 3mg Tablet) 3 mg PO HSP PRN PRN Reason: Insomnia Metformin HCl (Glucophage) 850 mg PO TIDCC [facility] Last Admin: 02/01/20 18:29 Dose: 850 mg Documented by: Ondansetron HCl (Zofran Odt) 4 mg SL Q4-6HP PRN; Protocol PRN Reason: Nausea And Vomiting Ondansetron HCl (Zofran) 4 mg IV Q4HP PRN PRN Reason: Nausea And Vomiting Last Admin: 01/31/20 18:48 Dose: 4 mg Documented by: Oxybutynin Chloride (Ditropan Xl) 10 mg PO DAILY [facility] Last Admin: 02/01/20 10:09 Dose: 10 mg Documented by: Polyethylene Glycol (Miralax) 17 gm PO DAILYP PRN PRN Reason: Constipation Potassium Chloride (Klor-Con) 40 meq PO DAILYP PRN PRN Reason: K+ < 3.5 Senna (Senokot) 1 tab PO HS [facility] Last Admin: 02/01/20 19:49 Dose: Not Given Documented by: Sitagliptin Phosphate (Januvia) 100 mg PO DAILY [facility] Last Admin: 02/01/20 10:10 Dose: 100 mg Documented by: Sodium Biphosphate/Sodium Phosphate (Fleets Adult) 1 dose MS Q3-4DAYS PRN PRN Reason: Constipation Sodium Chloride (Saline Flush) 10 ml IV Q8 [facility] Last Admin: 02/01/20 20:29 Dose: Not Given Documented by: Sodium Chloride (Saline Flush) 10 ml IV UD PRN PRN Reason: FLUSH Throat Lozenges (Cepacol) 1 lozenge PO PRN PRN PRN Reason: Sore Throat Last Admin: 01/29/20 04:40 Dose: 1 lozenge Documented by: Vancomycin HCl (Vancomycin Per Pharmacy) 1 order IV UD [facility]; Protocol A/P Narrative A/P Narrative: A: 1. 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 Uncontrolled DM2 3. Penicillin allergy: original reaction was 20 years ago, with symptoms of skin rash and throat tightness - no reaction with oral challenge on 01/30/2020 4. 1/4 bottles of blood Cx +ve from 01/26 for Micrococcus luteus: - likely a skin contaminant 5. Elevated LFTs: although AST and ALT are lower than yesterday, they are still >2 times ULN. GGT and T javi are higher than yesterday - could be acalculous cholecystitis or drug induced: Ceftriaxone could be one of potential causes. Rifampin seems less likely as it commonly causes indirect hyperbillirubinemia. Other meds could also be responsible Recommendations: - Continue IV Vancomycin per pharmacy assisted dosing. Vanc trough of 18 (01/29) and Vanc level of 13 (today) noted - hold IV Ceftriaxone 2 gm q24 hrs and PO Rifampin 300 mg bid for now - US RUQ - repeat LFTs tomorrow - PICC line placement today evening - As pharmacy in [place] can dose Vanc and manage outpatient dose adjustment according to serum levels; pt could be discharged on IV Vanc and low dose PO Rifampin. will add more details tomorrow. F/u with PCP and DR Aparicio as OP, per Dr Aparicio's preference. will follow Nam Tobar MD Infectious Diseases Time Spent With Patient Time: Total time spent is greater than 50% in coordination of care (as documented) at patient's floor/unit and/or counseling patient: QUALITY VTE Deep Vein Thrombosis/Pulmonary Embolism Present on Admission: No
[2020-02-02] MEDS: HYDROmorphone 0.5 MG/0.5 ML SYRINGE IV PRN (00:15)
[2020-02-02] MEDS: HYDROcodone/APAP 10/325MG TABLET PO PRN ×5 (04:39→21:17)
[2020-02-02] MEDS: 0.9 % SODIUM CHLORIDE 10 ML SYRINGE IV SCH ×3 (04:41→20:28)
[2020-02-02] MEDS: DOCUSATE SODIUM 100 MG CAPSULE PO SCH ×2 (07:00→21:18)
--- NOTE | 2020-02-02 07:34 | XRay Report ---
HISTORY: PICC line placement FINDINGS: A PICC line has been inserted through the right arm. The tip is in the superior vena cava above the right atrium. No pneumothorax, pleural effusion or widening of the mediastinum are present. The lungs are clear. Heart size is normal. The pulmonary vessels are prominent today than they were on 01/29/20 but there is no pulmonary edema. IMPRESSION: Well-positioned PICC line [facility] was called with results Interpreted and Authenticated by: Arden Isidro 02/02/20
[2020-02-02] MEDS: buPROPion 150 MG TAB.XL.24H PO SCH (08:59)
[2020-02-02] MEDS: metFORMIN 850 MG TABLET PO SCH ×3 (09:00→17:25)
[2020-02-02] MEDS: sitaGLIPtin 100 MG TABLET PO SCH (09:01)
[2020-02-02] MEDS: MULTIVIT,THER IRON,CA,FA & MIN 1 TABLET PO SCH (09:01)
[2020-02-02] MEDS: OXYBUTYNIN CHLORIDE 5 MG TAB.XL.24H PO SCH (09:01)
[2020-02-02] MEDS: HYDROCHLOROTHIAZIDE 12.5 MG CAPSULE PO SCH (09:01)
[2020-02-02] MEDS: ASPIRIN 325 MG ENTERIC COATED TABLET PO SCH ×2 (09:01→21:18)
[2020-02-02] MEDS: GABAPENTIN 300 MG CAPSULE PO SCH ×3 (09:01→21:17)
[2020-02-02] MEDS: LISINOPRIL 10 MG TABLET PO SCH (09:01)
[2020-02-02] MEDS: GLIMEPIRIDE 2 MG TABLET PO SCH ×2 (09:02→17:26)
[2020-02-02] MEDS: KETOROLAC 15 MG/ML VIAL IV PRN ×2 (09:03→20:45)
[2020-02-02] MEDS: INSULIN LISPRO 1 UNIT/0.01 ML UNIT SQ SCH ×4 (09:05→21:19)
[2020-02-02] MEDS: INSULIN GLARGINE, HUMAN 1 UNIT/0.01 ML SQ SCH (09:06)
[2020-02-02] MEDS: VANCOMYCIN 1,000 MG in 0.9 % SODIUM CHLORIDE 250 ML IV SCH ×2 (09:10→20:20)
[2020-02-02 09:40] LABS: ALT/SGPT 113 U/l (0-40); AST/SGOT 67 U/l (0-37); Albumin 3.4 gm/dL (3.2-5.2); Albumin/Globulin Ratio 1.1 (1.0-2.3); Alkaline Phosphatase 90 U/L (39-117); Bilirubin,Total 0.6 mg/dL (0.0-1.0); Blood Urea Nitrogen 11 mg/dl (8-23); Calcium 9.5 mg/dl (8.6-10.4); Carbon Dioxide 26 mmol/L (22-30); Chloride 96 mmol/L (96-108); Glomerular Filtration Rate 79; Glucose 253 mg/dL (70-105)
--- NOTE | 2020-02-02 12:14 | Discharge Summary ---
Discharge Provider Provider Patient information: Note initiated : 02/02/20 at 12:10 pm Service Date, if different from initiated Date: [] Patient: Jeannie Esposito a 64 y/o F admitted on 01/27/20 for R knee pain x2D. Chief Complaint: Discharge diagnosis * Right knee prosthetic joint septic arthritis. Postop, Arthrocentesis fluid 55,000 cell count/88% neutrophils. Cultures negative so far. ID recommends outpatient vancomycin for 6 weeks along with p.o. rifampin to continue with 300 mg daily * Elevated LFTs possibly secondary to Rocephin. Discontinued. Gallbladder ultrasound no evidence of obstruction or cholecystitis * Poorly controlled DM type II , improved blood sugar now 140s with continued up titration of basal prandial insulin to 40 units daily along with continued CC diet/metformin/glimepiride * Hypertension well-controlled on lisinopril/thiazide * Neuropathy continue gabapentin * Degenerative joint disease continue hydrocodone * Anxiety disorder continue bupropion Brief hospital course History of present illness: Ms. Esposito is a 64 year old F with a history of diabetes/hyperlipidemia/HTN anxiety disorder and DJD who presents to the ER with 2 days onset of right lower extremity redness swelling and pain during amb ulation and weightbearing. Patient symptoms accompanied with fever. She denies trauma/recent URI, skin infections. She denies recent hospitalization. Initial work-up in the ER included arthrocentesis which revealed purulent aspirate. Cultures along with Gram stain/joint fluid studies were sent. Orthopedics was consulted and recommended hospitalization for operative intervention in the next 24 hours. Subsequently hospital service was consulted. At the time of my evaluation patient is alert and oriented. She denies headache, chest pain, diarrhea, dysuria, nausea, vomiting. She further denies penetrating wound. 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 01/27 -patient awaiting surgery. No overnight events. No concerns per staff. Synovial cell count 55,000 with 88% neutrophils. Patient undergo joint washout today. Continue antibiotic coverage and de-escalate based on cultures once avai lable. 01/28-patient postop day 1. Doing well. On antibiotic coverage. Cultures negative so far. Afebrile. White count 9.8. A1c 11.5. Elevated blood sugars. 01/29-patient doing well. No overnight events. Blood sugars gradually trending down. Continue CC diet. GPC bacteremia. Surveillance cultures pending. Infectious is consulted. Currently on Rocephin/vancomycin. No significant pain . Able to weight-bear. Case discussed with orthopedics and will likely discharge on antibiotics once identified and duration as per determination of infectious disease specialist 01/30. Patient doing well. Complains of right knee postoperative pain. Surveillance cultures negative so far. Continuing on rifampin 300 twice daily along with vancomycin Rocephin. Plan to place PICC line in 24 hours if negative cultures. No overnight fever chills 01/31-patient continuing on IV antibiotics. LFTs uptrending. Per ID rifampin and ceftriaxone discontinued. Ordered gallbladder ultrasound. Continue vancomycin. Blood culture reveals micrococcus likely contaminant. Ongoing therapy/nutrition support. 02/01-ID recommends continuation of vancomycin IV at outpatient [facility] along with rifampin 300 mg daily. Continue PICC line care. Discharging with advised to follow-up with Dr. Cooper in 2 weeks. Date of admission: 01/27/20 18:48 Discharge date: 02/02/20 Primary care physician: Neftali Marina Consults: 01/27/20 Consult to Physician [CONS] Stat Comment: Consulting Provider: Austin Virk Reason For Exam: Physician to Consult Consult to Physician [CONS] Stat Comment: Consulting Provider: Rodrigo Aparicio Reason For Exam: Physician to Consult Consult to Physician [CONS] Stat Comment: Consulting Provider: Aditi Aguilera Reason For Exam: Physician to Consult 01/30/20 15:24 Consult to Physician [CONS] Routine Comment: Consulting Provider: Nam Tobar Reason For Exam: Physician to Consult Discharge Meds Discharge Medications Home Medications Atorvastatin [Lipitor] 10 mg PO HS 07/23/16 [History Confirmed 01/27/20 Last Taken 01/26/20 21:00] aspirin 81 mg CHEWED DAILY 07/23/16 [History Confirmed 01/27/20 Last Taken 01/26/20 21:00] bupropion HCl [Wellbutrin XL] 300 mg PO DAILY 07/23/16 [History Confirmed 01/27/20 Last Taken 01/27/20 06:30] glimepiride 2 mg PO BIDAC 07/23/16 [History Confirmed 01/27/20 Last Taken 01/27/20 08:00] lisinopril-hydrochlorothiazide 1 tab PO DAILY 07/23/16 [History Confirmed 01/27/20 Last Taken 01/27/20 08:00] metformin 850 mg PO TIDCC 07/23/16 [History Confirmed 01/27/20 Last Taken 01/27/20 12:00] oxybutynin chloride 10 mg PO DAILY 07/23/16 [History Confirmed 01/27/20 Last Taken 01/27/20 08:00] Adults Multivitamin 1 tab PO DAILY 01/27/20 [History Confirmed 01/27/20 Last Taken 01/27/20 08:00] gabapentin 300 mg PO TID 01/27/20 [History Confirmed 01/27/20 Last Taken 01/27/20 08:00] hydrocodone-acetaminophen 1 - 2 tab PO Q4HP PRN #75 tab 01/30/20 [Rx Confirmed 01/27/20 Last Taken 01/27/20 18:30] insulin glargine [Lantus U-100 Insulin] 40 unit SQ DAILY #30 ml 02/02/20 [Rx Last Taken Unknown] rifampin 300 mg PO QDAY #90 cap 02/02/20 [Rx Last Taken Unknown] vancomycin in 0.9 % sodium chl 1 g IV Q12H 42 Days #48805 ml 02/02/20 [Rx Last Taken Unknown] COURSE Hospital Course Hospital course: . Discharge diagnosis: . Time Spent with Patient Time attestation: Total time spent providing and/or coordinating discharge services: EXAM Constitutional Vitals: Temp Pulse Resp BP Pulse Ox 97.5 F 62 20 156/87 97 02/02/20 08:00 02/02/20 08:00 02/02/20 08:00 02/02/20 08:00 02/02/20 08:00 Discharge Data Data Completed and Pending Labs on day of discharge: Labs from last 24 hours 02/02/20 02/02/20 08:29 08:29 Sodium 135 Potassium 4.3 Chloride 96 Carbon Dioxide 26 Anion Gap 13.0 BUN 11 Creatinine 0.8 GFR Calculation 79 Glucose 253 H Calcium 9.5 Total Bilirubin 0.6 GGT Pending AST 67 H ALT 113 H Alkaline Phosphatase 90 Total Protein 6.4 Albumin 3.4 Globulin 3.0 Albumin/Globulin Ratio 1.1 Preliminary micro results at discharge 01/30/20 10:49 Blood Culture - Preliminary Blood 01/30/20 10:38 Blood Culture - Preliminary Blood 01/27/20 17:41 Blood Culture - Preliminary Blood Micrococcus luteus 01/27/20 16:20 Body Fluid Culture - Preliminary Synovial Fluid Discharge Plan Patient/Caregiver Discharge Instructions Activity: as instructed Diet: Consistent Carbohydrate Instructions: Joint Incision and Drainage (DC) Activity Restrictions/Additional Instructions: Weightbearing as tolerated with the right lower extremity with walker as needed. Continue IV vancomycin at [facility] pharmacy to dose based on vancomycin troughs. Continue oral rifampin 300 g daily as per ID recommendations. Follow-up with Dr. Cooper's clinic/PCP as advised. Please schedule appointments prior to discharge Increase insulin glargine to 40 units subcu daily Do the exercises at home that physical therapy gave you. Wear comfortable clothing for physical therapy. Take your prescription, photo ID, insurance cards, and current medication list with you to your first physical therapy appointment. 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 You may shower with dressing on, pat dry after shower. You may start showering on post op day #2. To avoid constipation while taking any narcotic pain medication, take an over the counter stool softener/laxative. Use your ice packs as directed, on for 20 minutes at a time, throughout the day. Ice and elevation will help with pain and swelling. If you have any questions or concerns call your orthopedic surgeon before going to the emergency room. [facility] has a phone engineer physician 24 hours per day/7 days per week and can be reached at [phone]. Call for fevers above 100.5 or pain not controlled by medication. Your prescriptions are with your discharge information. Some medications were electronically transmitted to your pharmacy of choice. Take Aspirin as prescribed to prevent blood clots (see medication list). This discharge packet is provided to you to help keep you informed about your care. We want to ensure you get everything you need when you go home. You will also be receiving a call from us in a few days to follow up with you and see how you are doing since your discharge. This gives us a chance to listen to any c oncerns you maybe experiencing since you were discharged or any additional needs you may have, as well as providing us feedback on your care experience. We strive to always provide excellent care and thank you for your feedback and for choosing [facility]. Prescriptions: New hydrocodone-acetaminophen 1 TAB tablet 1 - 2 tab PO Q4HP PRN (Reason: Pain) Qty: 75 RF: 0 vancomycin in 0.9 % sodium chl 1 gram/200 mL piggyback 1 g IV Q12H 42 Days Qty: 68542 RF: 0 Lantus U-100 Insulin 100 unit/mL Solution 40 unit SQ DAILY Qty: 30 RF: 0 rifampin 300 mg capsule 300 mg PO QDAY Qty: 90 RF: 0 Continued Atorvastatin [Lipitor] 10 MG Tablet 10 mg PO HS RF: 0 oxybutynin chloride 10 MG tablet extended release 24hr 10 mg PO DAILY RF: 0 metformin 850 MG tablet 850 mg PO TIDCC RF: 0 glimepiride 2 MG tablet 2 mg PO BIDAC RF: 0 aspirin 81 MG tablet,chewable 81 mg CHEWED DAILY RF: 0 lisinopril-hydrochlorothiazide 1 TAB tablet 1 tab PO DAILY RF: 0 bupropion HCl [Wellbutrin XL] 300 MG tablet extended release 24 hr 300 mg PO DAILY RF: 0 gabapentin 300 mg Capsule 300 mg PO TID RF: 0 Adults Multivitamin 18 mg iron-400 mcg-25 mcg Tablet 1 tab PO DAILY RF: 0 Discontinued Basaglar KwikPen U-100 Insulin 100 unit/mL (3 mL) Insulin Pen 30 unit SUBCUT DAILY RF: 0 Other Ambulatory Orders: Physical Therapy at Discharge - TKA (Routine) Location: None Selected Ordered By: Tyler Navarrete Follow Up Plan Follow up with: Neftali Marina MD [Primary Care Provider] - 02/04/20 9:00 am (Please check in to the ER side of the [facility] for this appointment.) Bill Bernard PA-C [Physician Assembler Adjuster] - 02/11/20 10:00 am (Please check in at 10:00 for a 10:20 appointment.) Patient Disposition: Home, Self-Care Assessment: 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 Currently no obvious source. UA is negative.. Plan of Treatment: Outpatient antibiotic treatment per ID/Hospitalist. Followup with orthopedics in 2 weeks. Prognosis: Fair Rehab Potential: Good I certify that the patient requires SNF services: No Overall status at discharge: patient is progressing back to baseline Discharge Orders: Discharge Order (Routine); Ordered 02/02/20 Ordered By: Tyler Navarrete QUALITY VTE Deep Vein Thrombosis/Pulmonary Embolism Present on Admission: No
--- NOTE | 2020-02-02 16:42 | Internal Med Progress Note ---
SUBJECTIVE Subjective Patient information: Note initiated : 02/02/20 at 4:41 pm Service Date, if different from initiated Date: [] Patient: Jeannie Esposito 64 y/o F admitted on 01/27/20 for R knee pain x2D. Chief Complaint: [Pt feels better in terms of knee pain. Denied any n/v, fever, chills, diarrhea, belly pain. Got PICC line placed yesterday. is very eager to go home. Shared f/u plans with pt's PCP, Dr Aparicio, and symptoms to watch for while being on antibiotics and when to seek medical attention. Pt voices understanding] Constitutional Vitals: Vital Signs Temp Pulse Resp BP Pulse Ox 36.7 C 69 20 156/71 96 02/02/20 12:00 02/02/20 12:00 02/02/20 12:00 02/02/20 12:00 02/02/20 12:00 Period Temp Pulse Resp BP Sys/Kelley Pulse Ox Last 24 Hr 36.3 C-36.7 C 62-80 18-20 142-156/71-87 94-97 Intake and Output 02/02/20 02/02/20 02/02/20 05:59 13:59 21:59 Intake Total 300 540 Balance 300 540 Intake & Output: Intake & Output 02/02/20 02/02/20 02/02/20 05:59 13:59 21:59 Intake Total 300 540 Balance 300 540 Intake: Oral 300 540 Other: Meal Lunch Percent of Meal Consumed 100% Feeding Ability Assist with Tray Set Up # Voids 3 Additional findings Additional findings: ao x 3, in nad no thrush chest cta s1 s2 normal bs ++, no tenderness on deep palpation, no hepatomegaly minimal leg edema b/l Rt knee surgical incision covered in dressing. No drainage around it. Bruise on medial aspect of right knee. Range of motion much better than yesterday. Mild swelling OBJ DATA Labs CBC & Chem 7: 02/01/20 05:30 02/02/20 08:29 Labs: Abnormal Lab Results 02/02/20 02/02/20 02/01/20 08:29 08:29 05:30 Glucose 253 H 147 H Phosphorus 4.6 H Total Bilirubin 1.1 H Direct Bilirubin 0.4 H GGT 219 H 216 H AST 67 H 68 H ALT 113 H 112 H Albumin 3.0 L Triglycerides 01/31/20 05:00 Glucose 162 H Phosphorus Total Bilirubin Direct Bilirubin GGT 191 H AST 80 H ALT 127 H Albumin Triglycerides 164 H Meds: Medications Acetaminophen (Tylenol) 650 mg PO Q6HP PRN PRN Reason: PAIN/FEVER > 101 Last Admin: 02/01/20 19:57 Dose: 650 mg Documented by: Hydrocodone Bitart/Acetaminophen (Jefferson 10/325mg) 0 tab PO Q4HP PRN PRN Reason: PAIN LEVEL 3-6 Last Admin: 02/02/20 13:13 Dose: 2 tab Documented by: Aspirin (Ecotrin) 325 mg PO BID [facility] Last Admin: 02/02/20 09:01 Dose: 325 mg Documented by: Atorvastatin Calcium (Lipitor) 10 mg PO HS [facility] Last Admin: 02/01/20 19:57 Dose: 10 mg Documented by: Bisacodyl (Dulcolax) 10 mg HI Q2-3DAYS PRN PRN Reason: Constipation Bupropion HCl (Wellbutrin Xl) 300 mg PO DAILY [facility] Last Admin: 02/02/20 08:59 Dose: 300 mg Documented by: Dextrose (Dextrose 50%) 0 ml IV UD PRN PRN Reason: Hypoglycemia Diagnostic Test (Pha) (Accu-Chek) 1 each FS ACHS [facility] Last Admin: 02/02/20 11:42 Dose: 1 each Documented by: Docusate Sodium (Colace) 100 mg PO BID [facility] Last Admin: 02/02/20 07:00 Dose: Not Given Documented by: Gabapentin (Neurontin) 300 mg PO TID [facility] Last Admin: 02/02/20 15:42 Dose: 300 mg Documented by: Glimepiride (Amaryl) 2 mg PO BIDAC [facility] Last Admin: 02/02/20 09:02 Dose: 2 mg Documented by: Glucose (Insta-Glucose) 15 gm PO PRN PRN PRN Reason: Hypoglycemia Heparin Sodium (Porcine) (Heparin 10 Units/Ml Flush) 2 ml IV Q12 [facility] Last Admin: 02/02/20 09:07 Dose: 2 ml Documented by: Hydrochlorothiazide (Oretic) 12.5 mg PO DAILY [facility] Last Admin: 02/02/20 09:01 Dose: 12.5 mg Documented by: Hydromorphone HCl (Dilaudid) 0.25 - 0.5 mg IV Q4HP PRN; Protocol PRN Reason: Per Pain Protocol Last Admin: 02/02/20 00:15 Dose: 0.25 mg Documented by: Acetaminophen (Ofirmev) 650 mg in 65 mls @ 130 mls/hr IV Q6HP PRN; Protocol PRN Reason: Per Pain Protocol/Fever > 101 Last Infusion: 01/29/20 16:23 Dose: Infused Documented by: Potassium Chloride 40 meq/ (Dextrose) 520 mls @ 130 mls/hr IV UD PRN PRN Reason: K+ = or < 3.5 Magnesium Sulfate (Magnesium Sulfate) 2 gm in 50 mls @ 50 mls/hr IV UD PRN PRN Reason: MG = or < 1.7 Last Admin: 01/30/20 09:45 Dose: 50 mls/hr Documented by: Vancomycin HCl 1,000 mg/ (Sodium Chloride) 250 mls @ 250 mls/hr IV Q12H [facility] Last Admin: 02/02/20 09:10 Dose: 250 mls/hr Documented by: Insulin Glargine (Lantus) 40 unit SQ DAILY [facility] Last Admin: 02/02/20 09:06 Dose: 40 units Documented by: Insulin Human Lispro (Humalog) 0 unit SQ ACHS [facility]; Protocol Last Admin: 02/02/20 11:44 Dose: Not Given Documented by: Iron Carb/Multivit/Sierra/Folic Acid (Multivitamin W/Minerals) 1 tab PO DAILY [facility] Last Admin: 02/02/20 09:01 Dose: 1 tab Documented by: Ketorolac Tromethamine (Toradol) 15 mg IV Q6HP PRN PRN Reason: pain Last Admin: 02/02/20 09:03 Dose: 15 mg Documented by: Lisinopril (Zestril) 10 mg PO DAILY [facility] Last Admin: 02/02/20 09:01 Dose: 10 mg Documented by: Magnesium Hydroxide (Milk Of Magnesia) 30 ml PO BIDP PRN PRN Reason: Constipation Melatonin (Melatonin 3mg Tablet) 3 mg PO HSP PRN PRN Reason: Insomnia Last Admin: 02/01/20 23:16 Dose: 3 mg Documented by: Metformin HCl (Glucophage) 850 mg PO TIDCC [facility] Last Admin: 02/02/20 11:54 Dose: 850 mg Documented by: Ondansetron HCl (Zofran Odt) 4 mg SL Q4-6HP PRN; Protocol PRN Reason: Nausea And Vomiting Ondansetron HCl (Zofran) 4 mg IV Q4HP PRN PRN Reason: Nausea And Vomiting Last Admin: 01/31/20 18:48 Dose: 4 mg Documented by: Oxybutynin Chloride (Ditropan Xl) 10 mg PO DAILY [facility] Last Admin: 02/02/20 09:01 Dose: 10 mg Documented by: Polyethylene Glycol (Miralax) 17 gm PO DAILYP PRN PRN Reason: Constipation Potassium Chloride (Klor-Con) 40 meq PO DAILYP PRN PRN Reason: K+ < 3.5 Senna (Senokot) 1 tab PO HS [facility] Last Admin: 02/01/20 19:49 Dose: Not Given Documented by: Sitagliptin Phosphate (Januvia) 100 mg PO DAILY [facility] Last Admin: 02/02/20 09:01 Dose: 100 mg Documented by: Sodium Biphosphate/Sodium Phosphate (Fleets Adult) 1 dose HI Q3-4DAYS PRN PRN Reason: Constipation Sodium Chloride (Saline Flush) 10 ml IV UD PRN PRN Reason: FLUSH Sodium Chloride (Saline Flush) 10 ml IV Q12 [facility] Last Admin: 02/02/20 09:04 Dose: 10 ml Documented by: Throat Lozenges (Cepacol) 1 lozenge PO PRN PRN PRN Reason: Sore Throat Last Admin: 01/29/20 04:40 Dose: 1 lozenge Documented by: Vancomycin HCl (Vancomycin Per Pharmacy) 1 order IV UD [facility]; Protocol A/P Narrative A/P Narrative: A: 1. 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 Uncontrolled DM2 3. Penicillin allergy: original reaction was 20 years ago, with symptoms of skin rash and throat tightness - no reaction with oral challenge on 01/30/2020 4. 1/4 bottles of blood Cx +ve from 01/26 for Micrococcus luteus: - likely a skin contaminant 5. Elevated LFTs: now down trending. Although AST and ALT are lower than yesterday, they are still around 2 times ULN. GGT and T javi are stable - could be acalculous cholecystitis or drug induced: Ceftriaxone could be one of potential causes. Rifampin seems less likely as it commonly causes indirect hyperbillirubinemia. Other meds could also be responsible Recommendations: - Continue IV Vancomycin per pharmacy assisted dosing. Vanc trough of 18 (01/29) and Vanc level of 13 on 01/30 noted - start PO Rifampin 300 mg once daily for now - Follow up labs: CBC, CMP , serum Vanc troughs weekly; and ESR & CRP every other week - As pharmacy in [place] can dose IV Vanc and manage outpatient dose adjustment according to serum levels; pt could be discharged on IV Vanc. Spoke with Dr Neftali Marina (pt's PCP) about follow up of LFTs. He will see the pt on Friday, and repeat LFTs. If LFTs continue to improve, PO Rifampin could be increased to 300 mg bid, with weekly LFT monitoring. If LFTs uptrend, Rifampin would have to be stopped. ---F/u with PCP and DR Aparicio as OP, per Dr Aparicio's preference. Nam Tobar MD Infectious Diseases Time Spent With Patient Time: Total time spent is greater than 50% in coordination of care (as documented) at patient's floor/unit and/or counseling patient: QUALITY VTE Deep Vein Thrombosis/Pulmonary Embolism Present on Admission: No
[2020-02-02] MEDS: ONDANSETRON 4 MG/2 ML VIAL IV PRN (20:25)
[2020-02-02] MEDS: ATORVASTATIN 10 MG TABLET PO SCH (21:16)
[2020-02-02] MEDS: SENNOSIDES 1 TABLET PO SCH (21:18)
--- NOTE | 2020-02-14 23:07 | Consultation ---
DATE OF CONSULTATION: 01/27/2020 Patient had a total knee arthroplasty approximately 3 years ago. This 64-year-old female presents complaining of right knee pain over the last couple of days. She had a temperature of 101 in the emergency room, was tapped with a cloudy effusion. Her A1c was around 10 with poor blood sugar control. The patient is on multiple medications. She does not have any shortness of breath or other constitutional symptoms. She is able to take a few steps, but very painful. Her motion has been limited as well. MEDICATIONS: Include: 1. Lipitor 10 mg p.o. at bedtime. 2. Aspirin 81 mg chewable every day. 3. Wellbutrin 300 mg p.o. every day. 4. Glimepiride 2 mg p.o. b.i.d. 5. Lisinopril 1 tablet p.o. every day. 6. Metformin 850 mg t.i.d. 7. Oxybutynin chloride 10 mg p.o. every day. 8. Gabapentin 300 mg p.o. t.i.d. 9. She does take insulin with a KwikPen 30 units, subcutaneous daily. 10. Meloxicam or Mobic 15 mg daily. 11. A multivitamin. 12. She has been also taking hydrocodone. ALLERGIES: SHE IS ALLERGIC TO PENICILLIN, WHICH CAUSES SEVERE ANAPHYLAXIS REACTION NOTED IN 2017. REVIEW OF SYSTEMS: CONSTITUTIONAL: Negative for constitutional symptoms, but does have a fever. CARDIOVASCULAR: Denies chest pain or shortness of breath. GASTROINTESTINAL: Denies abdominal pain such as nausea and vomiting. GENITOURINARY: Denies dysuria or frequency. MUSCULOSKELETAL: Reports pain within the knee obviously and pain to ambulate as noted above. SKIN: She denies rash or lesions. HEMATOLOGIC/LYMPHATICS: There is some swelling in the knee. No pain about the calf. PAST FAMILY HISTORY: Has a history of ____ joints and diabetes. PAST MEDICAL AND SURGICAL HISTORY: She does note that total knee arthroplasty done in 2017. Surgical history already noted. SOCIAL HISTORY: She was a former smoker, does not smoke now. PHYSICAL EXAMINATION: GENERAL: Very pleasant female, cooperative, alert, in no acute distress. HEENT: Head is normocephalic, atraumatic. Pupils are equal, round, and reactive to light and accommodations. NECK: Supple. LUNGS: Respiratory rate is approximately 12 and nonlabored. CARDIOVASCULAR: Regular rate and rhythm. No murmurs, rubs, or gallops. EXTREMITIES: Does have swelling in the right knee joint with some warmth, no erythema. Surprisingly, she can bend and extend the knee actively without severe pain. VITAL SIGNS: Her temperature on my exam was 98.3, pulse rate 80, respiratory rate is 14, blood pressure is 130/70, saturating at 96%. DIAGNOSES: 1. Septic right knee with prior total knee arthroplasty. The patient had a joint aspiration done by Dr. Tilley's PA, was cloudy fluid, was sent. CRP was elevated, high white count. 2. Poorly controlled type 2 diabetes with an A1c of 10. White count is 9.1, hemoglobin 14.3, hematocrit of 41.5, and platelet count 195,000. Chem-7 demonstrates sodium 133, potassium 3.7. She has a chloride of 95, bicarbonate 23, BUN at 21, and creatinine of 1.1. Blood glucose is 244. X-rays of the knee show well positioned knee with some swelling. PLAN AND TREATMENT: After discussing this with the patient, giving her, her options, it was decided to proceed with surgery with poly liner exchange and revision, and then placement on antibiotics. The patient agrees her recovery depends on her getting IV antibiotics until this is completely clean. She agreed and consented for the surgery, understanding some of these risks to include heart attack, strokes, and even continued infection. There is no guarantee, but with this procedure, she should be able to get up and walk and with a fairly high certainty 90%, that this should be curative. The patient agreed and will proceed with the case of right total knee revision with poly liner exchange, debridement and irrigation. JOSIAS:viky Job ID: [id number] Doc ID: [id number] Rodrigo Aparicio MD
== END 2020-02-02 21:53 | disposition home or self-care (01) | DRG 486 ==
LOC: ED 14:55 → MEDSUR 18:48
PROVIDERS: ADMIT Internal Medicine; ATTEND Internal Medicine

== ENCOUNTER 2021-07-31 14:41 | Inpatient (IN) ==
--- NOTE | 2021-07-31 14:52 | Emergency Department Note ---
HPI General Chief complaint: Extremity Injury, Lower Stated complaint: right knee pain Time Seen by Provider: 07/31/21 14:47 Mode of arrival: ambulatory Limitations: no limitations History of Present Illness HPI Narrative: Narrative: The patient is a 65-year-old female presents with a chief complaint of right knee pain. Patient reports that she previously had a right total knee replacement by Dr. Cooper. She also reports that she had a septic joint that required washout and extensive outpatient as well as inpatient IV antibiotics. Today she is complaining of right knee pain warmth and swelling that she states feels similar to her previous knee infection. Denies fevers, rigors, chills, headache or neck pain. Related Data Home Medications Medication Instructions Recorded Confirmed Atorvastatin [Lipitor] 10 mg PO HS 07/23/16 01/27/20 aspirin 81 mg chewable tablet 81 mg CHEWED DAILY 07/23/16 01/27/20 bupropion HCl 300 mg 24 hr tablet, 300 mg PO DAILY 07/23/16 01/27/20 extended release (Wellbutrin XL) glimepiride 2 mg tablet 2 mg PO BIDAC 07/23/16 01/27/20 lisinopril 10 1 tab PO DAILY 07/23/16 01/27/20 mg-hydrochlorothiazide 12.5 mg tablet metformin 850 mg tablet 850 mg PO TIDCC 07/23/16 01/27/20 oxybutynin chloride 10 mg 10 mg PO DAILY 07/23/16 01/27/20 tablet,extended release 24 hr gabapentin 300 mg capsule 300 mg PO TID 01/27/20 01/27/20 multivit with minerals-iron 18 1 tab PO DAILY 01/27/20 01/27/20 mg-folic ac 400 mcg-vit K 25 mcg tablet (Adults Multivitamin) Previous Rx's Medication Instructions Recorded hydrocodone 10 mg-acetaminophen 1 - 2 tab PO Q4HP PRN #75 tab 01/30/20 325 mg tablet insulin glargine 100 unit/mL 40 unit (0.4 mL) SQ DAILY #30 ml 02/02/20 subcutaneous solution (Lantus U-100 Insulin) rifampin 300 mg capsule 300 mg PO QDAY #90 cap 02/02/20 Allergies Allergy/AdvReac Type Severity Reaction Status Date / Time No Known Drug Allergies Allergy Verified 07/31/21 14:44 Review of Systems ROS ROS Narrative: Narrative: All systems ED: reviewed and negative except as stated. PFSH Narrative Patient History Narrative: Narrative: Medical/Surgical/Family History All Active Problems (Updated 07/31/21 @ 16:51 by Karlo Quiñonez DO) Septic arthritis of knee, right (Acute) Hx of total knee arthroplasty (Acute) Infected prosthetic knee joint (Acute) Surgical History (Updated 07/31/21 @ 15:49 by Karlo Quiñonez DO) Hx of total knee arthroplasty Social History Smoking Status: Former smoker Exam Narrative Narrative: Narrative: General Limitations: no limitations General appearance: Present alert, in no apparent distress and nontoxic Head Head: Present atraumatic and normocephalic Eye Eye: Present normal appearance and PERRL ENT ENT: Present mucous membranes moist Neck Neck: Present full ROM; Absent meningismus Chest Chest: Present symmetric chest wall rise Respiratory Respiratory: Absent respiratory distress Cardiovascular Cardiovascular: Present regular rate Adbominal Abdominal: Present soft; Absent distention or pulsatile mass Expanded Lower Extremity Knee: Present tenderness, swelling, effusion and other (nv intact, compartments soft. ) Back Back: Present normal inspection; Absent tenderness Neurological Neurological: Present alert, oriented X3 and CN II-XII intact Psychiatric Psychiatric: Present normal affect Skin Skin: Present warm (WNL); Absent rash Course Course Course Narrative: 65-year-old female presents with right knee pain. She has had a previous right total knee arthroplasty. Also had a history of previous septic joint. Work-up is still pending. Patient will likely require admission for possible septic joint. 16:[address] Cooper called. Awaiting return phone call. 16:[address] Cooper who is agreed to admit this patient. We will start antibiotics with IV vancomycin and IV ancef, basic facilitated admission orders will be placed. Vital Signs Vital signs: Vital Signs Temperature 98.5 F 07/31/21 14:41 Pulse Rate 101 H 07/31/21 14:41 Respiratory Rate 16 07/31/21 14:41 Blood Pressure 167/111 07/31/21 14:41 Pulse Oximetry (%) 97 07/31/21 14:41 Temperature 98.5 F 07/31/21 14:41 Pulse Rate 87 07/31/21 15:31 Respiratory Rate 16 07/31/21 14:41 Blood Pressure 125/76 07/31/21 15:31 Pulse Oximetry (%) 95 07/31/21 15:31 [facility] MDM Narrative Medical decision making narrative: Narrative:65-year-old female presents with right knee pain. She has had a previous right total knee arthroplasty. Also had a history of previous septic joint. Work-up is still pending. Radiographs are consistent with joint effusion. Fluoroscopic guided arthrocentesis will be performed by interventional radiology. Synovial fluid culture and Gram stain and cell count glucose are all pending at this time. Radiographs are consistent with joint effusion. Fluoroscopic guided arthroce ntesis will be performed by interventional radiology. Synovial fluid culture and Gram stain and cell count glucose are all pending at this time. 16:25 Orthopedic surgery/Dr. Cooper called, awaiting callback. Patient will likely require admission for likely septic joint. 16:[address] surgeon [address] Cooper who has agreed to admit this patient. We will start antibiotics with IV vancomycin and IV ancef, basic facilitated admission orders will be placed. Lab Data Result diagrams: 07/31/21 15:49 07/31/21 15:49 Labs: Lab Results 07/31/21 Range/Units 15:49 WBC 11.8 H (4.5-11.0) K/mcL RBC 4.23 (3.59-5.38) M/mcL Hgb 12.9 (11.2-15.7) g/dL Hct 37.9 (34.1-44.9) % MCV 89.6 (80.0-100.0) fL MCH 30.5 (26.0-34.0) pg MCHC 34.0 (31.0-36.0) g/dL RDW 12.5 (11.5-14.5) % Plt Count 267 (140-440) K/mcL MPV 9.2 (7.4-10.4) fL Neut % (Auto) 78.7 H (38.0-78.0) % Lymph % (Auto) 13.1 L (15.5-49.0) % Armstrong % (Auto) 7.6 (1.0-12.0) % Eos % (Auto) 0.3 (0.0-7.0) % Baso % (Auto) 0.3 (0.0-2.0) % Lymph # (Auto) 1.55 (1.50-4.80) K/mcL Armstrong # (Auto) 0.90 (0.10-0.90) K/mcL Eos # (Auto) 0.03 (0.00-0.70) K/mcL Baso # (Auto) 0.04 (0.00-0.30) K/mcL Absolute Neutrophils 9.32 H (1.80-8.00) K/mcL Discharge Plan Patient/Caregiver Discharge Instructions Pt seen by ONLINE MARKETING ANALYST/PA only: No Clinical Impression: Hx of total knee arthroplasty, Septic joint of right knee joint, Infected prosthetic knee joint Patient Disposition: Xfer As Inpt ([facility]) Condition: Fair Follow up with: Neftali Marina MD [Primary Care Provider] - Prescriptions: No Action Atorvastatin [Lipitor] 10 MG Tablet 10 mg PO HS 0RF oxybutynin chloride 10 MG tablet extended release 24hr 10 mg PO DAILY 0RF metformin 850 MG tablet 850 mg PO TIDCC 0RF glimepiride 2 MG tablet 2 mg PO BIDAC 0RF aspirin 81 MG tablet,chewable 81 mg CHEWED DAILY 0RF lisinopril-hydrochlorothiazide 1 TAB tablet 1 tab PO DAILY 0RF bupropion HCl [Wellbutrin XL] 300 MG tablet extended release 24 hr 300 mg PO DAILY 0RF gabapentin 300 mg Capsule 300 mg PO TID 0RF Adults Multivitamin 18 mg iron-400 mcg-25 mcg Tablet 1 tab PO DAILY 0RF hydrocodone-acetaminophen 1 TAB tablet 1 - 2 tab PO Q4HP PRN (Reason: Pain) Qty: 75 0RF Lantus U-100 Insulin 100 unit/mL Solution 40 unit SQ DAILY Qty: 30 0RF rifampin 300 mg capsule 300 mg PO QDAY Qty: 90 0RF
[2021-07-31] MEDS ORDERED: fentaNYL 100 MCG/2 ML VIAL IV ONE (15:16)
[2021-07-31] MEDS ORDERED: ePHEDrine 50 MG/5 ML SYRINGE (ANEST) IV ONE (15:16)
[2021-07-31] MEDS ORDERED: DEXAMETHASONE 10 MG/ML VIAL ONE (15:16)
[2021-07-31] MEDS ORDERED: KETAMINE 50 MG/ML Syringe (ANEST) IV ONE (15:16)
[2021-07-31] MEDS ORDERED: ROPIVACAINE HCL/PF 20 ML VIAL IJ ONE (15:16)
[2021-07-31] MEDS ORDERED: MAGNESIUM SULFATE 2 GM/50 ML BAG IV ONE (15:16)
[2021-07-31] MEDS ORDERED: LIDOCAINE HCL/PF 100 MG/5 ML SYRINGE IV ONE (15:16)
[2021-07-31] MEDS ORDERED: ONDANSETRON 4 MG/2 ML VIAL ONE (15:16)
[2021-07-31] MEDS ORDERED: PROPOFOL 200 MG/20 ML VIAL IV ONE (15:16)
[2021-07-31] MEDS ORDERED: HYDROmorphone 1 MG/ML SYRINGE ONE (15:16)
--- NOTE | 2021-07-31 15:36 | XRay Report ---
CLINICAL INFORMATION: Pain and swelling COMPARISON: 01/28/2020 FINDINGS: Total knee prostheses is anatomically aligned. There are no osseous abnormalities. Small suprapatellar effusion noted.. IMPRESSION: Small suprapatellar effusion. Interpreted and Authenticated by: Matt Tomas 07/31/21
[2021-07-31] MEDS ORDERED: ONDANSETRON 4 MG/2 ML VIAL IV ONE (15:40)
[2021-07-31] MEDS ORDERED: HYDROmorphone 0.5 MG/0.5 ML SYRINGE IV ONE (15:40)
[2021-07-31 16:42] LABS: Basophils # (Auto) 0.04 K/mcL (0.00-0.30); Basophils % (Auto) 0.3 % (0.0-2.0); Eosinophils # (Auto) 0.03 K/mcL (0.00-0.70); Eosinophils % (Auto) 0.3 % (0.0-7.0); Hematocrit 37.9 % (34.1-44.9); Hemoglobin 12.9 g/dL (11.2-15.7); Lymphocytes # (Auto) 1.55 K/mcL (1.50-4.80); Lymphocytes % (Auto) 13.1 % (15.5-49.0); Mean Cell Volume 89.6 fL (80.0-100.0); Mean Platelet Volume 9.2 fL (7.4-10.4); Monocytes % (Auto) 7.6 % (1.0-12.0); Neutrophils % (Auto) 78.7 % (38.0-78.0); Platelet Count 267 K/mcL (140-440); RBC 4.23 M/mcL (3.59-5.38); Red Cell Distribution Width 12.5 % (11.5-14.5); WBC 11.8 K/mcL (4.5-11.0)
[2021-07-31] MEDS ORDERED: ceFAZolin 1 GM VIAL IV ONE (16:45)
[2021-07-31] MEDS ORDERED: VANCOMYCIN 1,000 MG in 0.9 % SODIUM CHLORIDE 250 ML IV ONE (16:45)
[2021-07-31] MEDS ORDERED: ONDANSETRON 4 MG/2 ML VIAL IV PRN (16:48)
[2021-07-31] MEDS ORDERED: 0.9 % SODIUM CHLORIDE 1,000 ML IV ONE (16:52)
[2021-07-31 17:07] LABS: ALT/SGPT 34 U/L (<40); AST/SGOT 19 U/L (<32); Albumin/Globulin Ratio 1.2 (1.0-2.3); Alkaline Phosphatase 67 U/L (39-117); Blood Urea Nitrogen 13 mg/dL (8-23); Calcium 9.3 mg/dL (8.6-10.4); Carbon Dioxide 25 mmol/L (22-30); Chloride 92 mmol/L (96-108); Globulin 3.3 gm/dL (2.2-3.7); Glomerular Filtration Rate 68; Glucose 216 mg/dL (70-105)
[2021-07-31 17:08] LABS: INR 0.9 (0.9-1.1); Prothrombin Time 12.7 sec (11.9-14.5)
[2021-07-31 17:09] LABS: Erythrocyte Sedimentation Rate 47 mm/hr (0-30)
[2021-07-31] MEDS ORDERED: BISACODYL 10 MG SUPP.RECT PR PRN (17:50)
[2021-07-31] MEDS ORDERED: MAGNESIUM HYDROXIDE 30 ML ORAL.SUSP PO PRN (17:50)
[2021-07-31] MEDS ORDERED: TEMAZEPAM 15 MG CAPSULE PO PRN (17:50)
[2021-07-31] MEDS ORDERED: POLYETHYLENE GLYCOL 3350 17 GM PACKET PO PRN (17:50)
[2021-07-31] MEDS ORDERED: ACETAMINOPHEN 325 MG TABLET PO PRN (17:50)
[2021-07-31] MEDS ORDERED: FLEETS ADULT ENEMA PR PRN (17:50)
[2021-07-31] MEDS ORDERED: ceFAZolin 1 GM VIAL IV SCH (18:00)
[2021-07-31 18:13] LABS: Glucose,Synovial Fluid 165 mg/dL
--- NOTE | 2021-07-31 18:32 | XRay Report ---
CLINICAL INFORMATION: Knee pain and swelling. History of knee prostheses COMPARISON: None. TECHNIQUE: The procedure and risks including possibility of bleeding and infection were explained to the patient. She understood and wished to proceed. With the patient's spine on the fluoroscopy table, the skin overlying the medial patellofemoral joint was fluoroscopically marked. The skin was prepped and locally anesthetized 1% lidocaine using a 25-gauge needle. An 18-gauge spinal needle was then advanced to the patellofemoral joint. Approximately 15 cc of frankly purulent joint fluid was aspirated and sent for Gram stain and culture.. Total fluoroscopy time 15 seconds IMPRESSION: Successful fluoroscopic guided aspiration of right knee yielding 15 cc of frankly purulent joint fluid. This was sent for Gram stain culture Interpreted and Authenticated by: Matt Tomas 07/31/21
[2021-07-31] MEDS: BENZOCAINE/MENTHOL 1 LOZENGE PO PRN (19:20)
[2021-07-31 19:25] LABS: Appearance,Synovial Fluid Cloudy; Color,Synovial Fluid Yellow; Lymphocytes,Synovial Fluid 1 %; Neutrophils,Synovial Fluid 97 % (0-25); Nucleated Cells,Synovial Fld 69640 /cumm; Other Cells,Synovial Fluid 2 %
--- NOTE | 2021-07-31 19:32 | Consultation ---
DATE OF CONSULTATION: 07/31/2021 HISTORY OF PRESENT ILLNESS: A 65-year-old, preop diagnosis of right septic knee, prior total knee arthroplasty placed in 2017. Symptoms began a day or two ago with severe pain and swelling, was seen in the Emergency Room where the knee was aspirated. White count was 11.8 with just a slight shift of 78% PMN. Blood pressure and vital signs are stable. CRP was elevated at 13, ESR was just slightly elevated. Fluid was purulent in nature, could not prove crystals. Pulse was only 81, respiratory rate was ____. PAST MEDICAL HISTORY: The patient has otherwise been healthy. Has been able to be ambulatory until more recently had severe pain, swelling and deformity. Had a washout of her knee in 2019 for septic joint with exchange of a poly liner, seemed to do well postoperatively from that event. The patient has a history of being multiple chronic pain medications. Her medications on an average basis is atorvastatin 10 mg p.o. at bedtime, [place] 7.5/325, aspirin 81 mg daily, bupropion 300 mg p.o. daily, levothyroxine 25 mcg p.o. q. a.m., lisinopril 1 p.o. every day, metformin 85 mg p.o. t.i.d. for type 2 diabetes, multivitamin once a day, oxybutynin 10 mg p.o. every day, tramadol 50 mg p.o. q. 6 hours p.r.n. for pain, sitagliptin 50 mg p.o. daily. ALLERGIES: PENICILLIN CAUSES ANAPHYLAXIS ALLERGIES. REVIEW OF SYSTEMS: Negative except for the complaint of right knee pain. SOCIAL HISTORY: She admitted, a former smoker. She denies any significant alcohol use at present. PHYSICAL EXAMINATION: GENERAL: A very pleasant female whose blood pressure is 124/76, pulse 80, respiratory rate is 16, temperature is 98.3. She is alert and cooperative. LUNGS: Clear to auscultation. RESPIRATORY: Rate is regular rate and rhythm. MUSCULOSKELETAL: The right knee inspected reveals mild swelling and minimal erythema. There was some warmth to touch. There was severe tenderness to palpation. Pain with range of motion of the knee. Laboratories with CBC, CRP. CRP is 13, CBC slightly elevated white count is noted. Images of the knee showed 3 views with well-position and well placed ODC total knee arthroplasty. IMPRESSION: With the above-mentioned labs is right septic knee. PLAN: The knee has already been aspirated and the patient has sent this for cultures and cell count, which results are not back yet. She does have a second diagnosis of diabetes and we will try to help assist manage these. We will also schedule her for debridement and irrigation of the knee with the first stage total knee arthroplasty with antibiotic-impregnated cement. The patient understands the risks and benefits and agrees to proceed. RBH:nova Job ID: [id number] Doc ID: [id number] Rodrigo Aparicio MD
[2021-07-31] MEDS: HYDROcodone/APAP 10/325MG TABLET PO PRN (19:41)
[2021-07-31] MEDS ORDERED: SENNOSIDES 1 TABLET PO SCH (21:00)
[2021-07-31] MEDS ORDERED: DOCUSATE SODIUM 100 MG CAPSULE PO SCH (21:00)
[2021-07-31] MEDS: 0.9 % SODIUM CHLORIDE 10 ML SYRINGE IV SCH ×2 (21:44→21:54)
[2021-07-31] MEDS: LACTATED RINGERS 1,000 ML IV SCH (21:44)
[2021-07-31] MEDS: SENNOSIDES 1 TABLET PO SCH (21:45)
[2021-07-31] MEDS: 0.45 % SODIUM CHLORIDE 1,000 ML IV SCH (21:52)
[2021-07-31] MEDS: DOCUSATE SODIUM 100 MG CAPSULE PO SCH (21:52)
[2021-07-31] MEDS: traMADol 50 MG TABLET PO SCH (21:53)
[2021-07-31] MEDS: GABAPENTIN 300 MG CAPSULE PO SCH (21:53)
[2021-07-31] MEDS: ATORVASTATIN 10 MG TABLET PO SCH (21:53)
[2021-07-31] MEDS: ceFAZolin 1 GM VIAL IV SCH (23:25)
[2021-08-01] MEDS: HYDROcodone/APAP 10/325MG TABLET PO PRN ×3 (01:34→17:58)
[2021-08-01] MEDS: 0.45 % SODIUM CHLORIDE 1,000 ML IV SCH ×4 (05:20→22:58)
[2021-08-01] MEDS: 0.9 % SODIUM CHLORIDE 10 ML SYRINGE IV SCH ×4 (05:20→20:49)
[2021-08-01] MEDS: metFORMIN 850 MG TABLET PO SCH ×4 (07:18→15:59)
[2021-08-01] MEDS: ceFAZolin 1 GM VIAL IV SCH (07:19)
[2021-08-01] MEDS: GLIMEPIRIDE 2 MG TABLET PO SCH ×2 (07:21→15:59)
[2021-08-01] MEDS: MULTIVIT,THER IRON,CA,FA & MIN 1 TABLET PO SCH (08:15)
[2021-08-01] MEDS: DOCUSATE SODIUM 100 MG CAPSULE PO SCH ×2 (08:15→20:48)
[2021-08-01] MEDS: GABAPENTIN 300 MG CAPSULE PO SCH ×3 (08:15→20:48)
[2021-08-01] MEDS: HYDROCHLOROTHIAZIDE 12.5 MG CAPSULE PO SCH (08:31)
[2021-08-01] MEDS: OXYBUTYNIN CHLORIDE 5 MG TAB.XL.24H PO SCH (08:31)
[2021-08-01] MEDS: buPROPion 150 MG TAB.XL.24H PO SCH (08:31)
[2021-08-01] MEDS: LISINOPRIL 10 MG TABLET PO SCH (08:32)
[2021-08-01] MEDS ORDERED: INSULIN GLARGINE, HUMAN 1 UNIT/0.01 ML SQ SCH (09:00)
[2021-08-01] MEDS ORDERED: LISINOPRIL/HCTZ 10/12.5MG TABLET PO SCH (09:00)
[2021-08-01] MEDS: INSULIN GLARGINE, HUMAN 1 UNIT/0.01 ML SQ SCH (09:48)
[2021-08-01] MEDS ORDERED: IPRATROPIUM/ALBUTEROL 3 ML AMPUL.NEB NEB PRN ×2 (09:59→16:27)
[2021-08-01 11:31] LABS: Hemoglobin A1C 8.4 % Hgb (4.0-6.0)
[2021-08-01] MEDS: LACTATED RINGERS 1,000 ML IV SCH (14:31)
[2021-08-01] MEDS ORDERED: ceFAZolin 2 GM in DEXTROSE 5% IN WATER 50 ML IV SCH (15:30)
[2021-08-01] MEDS ORDERED: GENTAMICIN SULFATE 800 MG/20 ML VIAL IR ONE (15:43)
[2021-08-01] MEDS ORDERED: MEPERIDINE 25 MG/ML VIAL IV PRN (16:27)
[2021-08-01] MEDS ORDERED: diphenhydrAMINE 50 MG/ML VIAL IV PRN (16:27)
[2021-08-01] MEDS ORDERED: LACTATED RINGERS 250 ML IV PRN (16:27)
[2021-08-01] MEDS ORDERED: ONDANSETRON 4 MG/2 ML VIAL IV PRN ×2 (16:27→16:42)
[2021-08-01] MEDS ORDERED: ACETAMINOPHEN 1,000 MG/100 ML BAG IV ONE (16:27)
[2021-08-01] MEDS ORDERED: PROMETHAZINE 25 MG/ML VIAL IV PRN (16:27)
[2021-08-01] MEDS ORDERED: NALOXONE HCL 0.4 MG/ML VIAL IV PRN (16:27)
[2021-08-01] MEDS ORDERED: BENZOCAINE/MENTHOL 1 LOZENGE PO PRN ×2 (16:27→16:42)
[2021-08-01] MEDS ORDERED: LACTATED RINGERS 1,000 ML IV SCH (16:30)
[2021-08-01] MEDS ORDERED: POLYETHYLENE GLYCOL 3350 17 GM PACKET PO PRN (16:42)
[2021-08-01] MEDS ORDERED: TEMAZEPAM 15 MG CAPSULE PO PRN (16:42)
[2021-08-01] MEDS ORDERED: MAGNESIUM HYDROXIDE 30 ML ORAL.SUSP PO PRN (16:42)
[2021-08-01] MEDS ORDERED: FLEETS ADULT ENEMA PR PRN (16:42)
[2021-08-01] MEDS ORDERED: TRANEXAMIC ACID 1,000 MG/10 ML VIAL IV ONE (16:42)
[2021-08-01] MEDS ORDERED: HYDROcodone/APAP 10/325MG TABLET PO PRN (16:42)
[2021-08-01] MEDS ORDERED: ACETAMINOPHEN 325 MG TABLET PO PRN (16:42)
[2021-08-01] MEDS ORDERED: HYDROmorphone 1 MG/ML SYRINGE IV PRN (16:42)
[2021-08-01] MEDS ORDERED: BISACODYL 10 MG SUPP.RECT PR PRN (16:42)
--- NOTE | 2021-08-01 16:42 | Brief Operative Note ---
Brief Operative Note Date of procedure: 08/01/21 Pre-op diagnosis: Right knee septic joint Post-op diagnosis: same Procedure: Right tka revision first stage Grafts/Implants: Yes Anesthesia: GETA Findings: purulent material Complications: none Complications Description: none Surgeon: Rodrigo Aparicio Senior Research Engineer: Bill Bernard Estimated blood loss (cc): 50 Tourniquet Time (Minutes): 48 Specimens Removed/Pathology: none sent Condition: stable Disposition: PACU
[2021-08-01] MEDS ORDERED: 0.45 % SODIUM CHLORIDE 1,000 ML IV SCH (16:45)
--- NOTE | 2021-08-01 17:22 | XRay Report ---
CLINICAL INFORMATION: Post-Op Total Knee COMPARISON: None. FINDINGS: Total knee prostheses is anatomically aligned. No osseous abnormalities. Periarticular soft tissue swelling seen as expected. IMPRESSION: Knee prostheses in anatomic alignment Interpreted and Authenticated by: Matt Tomas 08/01/21
[2021-08-01] MEDS: fentaNYL 100 MCG/2 ML VIAL IV PRN ×2 (17:27→17:43)
[2021-08-01] MEDS: BENZOCAINE/MENTHOL 1 LOZENGE PO PRN (18:33)
[2021-08-01] MEDS: oxyCODONE HCL 5 MG TABLET PO PRN (19:42)
[2021-08-01] MEDS: traMADol 50 MG TABLET PO SCH (20:47)
[2021-08-01] MEDS: ASPIRIN 81 MG TAB.CHEW PO SCH (20:48)
[2021-08-01] MEDS: SENNOSIDES 1 TABLET PO SCH (20:48)
[2021-08-01] MEDS: ATORVASTATIN 10 MG TABLET PO SCH (20:48)
[2021-08-01] MEDS ORDERED: SENNOSIDES 1 TABLET PO SCH (21:00)
[2021-08-01] MEDS ORDERED: DOCUSATE SODIUM 100 MG CAPSULE PO SCH (21:00)
[2021-08-01] MEDS ORDERED: 0.9 % SODIUM CHLORIDE 10 ML SYRINGE IV SCH (22:00)
[2021-08-01] MEDS: HYDROmorphone 1 MG/ML SYRINGE IV PRN (22:41)
[2021-08-01] MEDS: ONDANSETRON 4 MG/2 ML VIAL IV PRN (22:47)
[2021-08-02] MEDS: HYDROcodone/APAP 10/325MG TABLET PO PRN ×4 (01:53→16:31)
[2021-08-02] MEDS: 0.9 % SODIUM CHLORIDE 10 ML SYRINGE IV SCH ×4 (04:24→23:45)
[2021-08-02] MEDS: GLIMEPIRIDE 2 MG TABLET PO SCH ×2 (07:34→16:34)
[2021-08-02] MEDS: INSULIN GLARGINE, HUMAN 1 UNIT/0.01 ML SQ SCH (07:52)
[2021-08-02] MEDS: GABAPENTIN 300 MG CAPSULE PO SCH ×3 (07:54→20:10)
[2021-08-02] MEDS: ASPIRIN 81 MG TAB.CHEW PO SCH ×2 (07:54→20:10)
[2021-08-02] MEDS: HYDROCHLOROTHIAZIDE 12.5 MG CAPSULE PO SCH (07:55)
[2021-08-02] MEDS: DOCUSATE SODIUM 100 MG CAPSULE PO SCH ×2 (07:55→20:10)
[2021-08-02] MEDS: LISINOPRIL 10 MG TABLET PO SCH (07:55)
[2021-08-02] MEDS: MULTIVIT,THER IRON,CA,FA & MIN 1 TABLET PO SCH (07:55)
[2021-08-02] MEDS: OXYBUTYNIN CHLORIDE 5 MG TAB.XL.24H PO SCH (07:56)
[2021-08-02] MEDS: buPROPion 150 MG TAB.XL.24H PO SCH (07:56)
[2021-08-02] MEDS: metFORMIN 850 MG TABLET PO SCH ×3 (07:56→16:31)
--- NOTE | 2021-08-02 08:13 | Operative Note ---
DATE OF OPERATION: 08/01/2021 PREOPERATIVE DIAGNOSIS: Right septic knee. POSTOPERATIVE DIAGNOSIS: Right septic knee. PROCEDURE: Debridement and irrigation, first stage revision of all components. SURGEON: Rodrigo Aparicio M.D. DIE REPAIRER STAMPING: Bill Bernard PA-C. This providers expertise and technical skill were required throughout the case. The WENDY assisted with preoperative coordination, intraoperative retraction, wound closure, and dressing and splint application, as well as postoperative documentation and care coordination. ESTIMATED BLOOD LOSS: 50 mL. TOURNIQUET TIME 48 minutes. IMPLANTS: Size 3 femoral component, size 3 tibial baseplate and a 12 mm highly cross-linked polyethylene with antibiotic cement. The old implant was completely removed. TOURNIQUET TIME: 250 pounds of pressure for 48 minutes. DISPOSITION: To PACU. DESCRIPTION OF PROCEDURE: The patient was brought to the operating room, put to sleep with general LMA anesthesia, the right leg was confirmed as the operative site by initials, consent form, and x-rays. Once the timeout had been confirmed and the preoperative antibiotics and tranexamic acid had been given, we made a midline incision through her prior scar. Midvastus approach to the knee was performed and we subluxed the patella laterally. Through this, we exposed the joint and used flexible osteotomes to remove the femur. This was very difficult because of the well-attached cement and some bone was removed with the cement that was completely attached to the implant. The tibial component was likewise equally as stable and secure. This was also removed using flexible osteotomes and was finally removed. Excess cement was removed on both sides. We removed the poly liner as well. We then refreshed and the cuts of the femur and the tibia and then tapped into place. After thoroughly irrigation of 9 liters of irrigation. We placed a temporary prosthesis, ODC component with antibiotic cement was placed on the femur, size 3 on the distal femur and a 12 mm thick deep dish poly with a post was placed. Excess cement had been removed and we thoroughly irrigated the knee again, removing as a complete synovectomy around the joint. The knee was stable. We irrigated thoroughly and then closed the midvastus approach with #1 Stratafix x2, closed the skin with Stratafix and adhesive closure. The purulence that we saw early, in the knee, was a very cloudy, brownish fluid. It was not thick and tenacious, appeared to be fairly acute within a day or two of the initial infection. There was no bony involvement of the infection. RBH:kalani Job ID: [id number] Doc ID: [id number] Rodrigo Aparicio MD
[2021-08-02] MEDS ORDERED: ASPIRIN 81 MG CHEWED SCH (09:00)
[2021-08-02] MEDS: oxyCODONE HCL 5 MG TABLET PO PRN ×2 (09:05→21:07)
[2021-08-02] MEDS: LACTATED RINGERS 1,000 ML IV SCH (10:15)
[2021-08-02] MEDS: 0.45 % SODIUM CHLORIDE 1,000 ML IV SCH ×2 (10:16→20:12)
[2021-08-02] MEDS ORDERED: 0.9 % SODIUM CHLORIDE 10 ML SYRINGE IV PRN (11:02)
--- NOTE | 2021-08-02 11:56 | EKG ---
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
[2021-08-02] MEDS: HYDROmorphone 1 MG/ML SYRINGE IV PRN (14:31)
--- NOTE | 2021-08-02 16:11 | XRay Report ---
CLINICAL INFORMATION: PICC placement COMPARISON: None. TECHNIQUE: PA and Lateral views FINDINGS: The heart size, mediastinum and pulmonary vessels are unremarkable. Right PICC line tip overlies the SVC right atrial junction in satisfactory position The lungs are clear. There are no effusions. The bones and soft tissues are within normal limits. IMPRESSION: Normal chest. Right PICC line tip in satisfactory position. Interpreted and Authenticated by: Matt Tomas 08/02/21
[2021-08-02] MEDS: BENZOCAINE/MENTHOL 1 LOZENGE PO PRN (16:34)
--- NOTE | 2021-08-02 17:43 | Orthopedic Progress Note ---
SUBJECTIVE Subjective Patient information: Note initiated : 08/02/21 at 5:42 pm Service Date, if different from initiated Date: [] Patient: Jeannie Esposito 65 y/o F admitted on 07/31/21 for right knee pain. Chief Complaint: [Pt is stable this morning on post operative day without any significant concerns or complaints. Patients vital signs have remained stable. Patients dressing is dry and is grossly intact from a neurovascular and motor standpoint. Patients 10 point ROS is otherwise negative. ] Constitutional Vitals: Vital Signs Temp Pulse Resp BP Pulse Ox 97.3 F 89 18 146/80 97 08/02/21 11:17 08/02/21 11:17 08/02/21 11:17 08/02/21 11:17 08/02/21 16:00 Period Temp Pulse Resp BP Sys/Kelley Pulse Ox Last 24 Hr 96.8 F-97.7 F 82-100 12-20 136-167/76-97 90-100 Intake and Output 08/02/21 08/02/21 08/02/21 05:59 13:59 21:59 Intake Total 500 240 480 Output Total 1350 Balance -850 240 480 Intake & Output: Intake & Output 08/02/21 08/02/21 08/02/21 05:59 13:59 21:59 Intake Total 500 240 480 Output Total 1350 Balance -850 240 480 Intake: Oral 500 240 480 Output: Void Amount 1350 Other: Urine Appearance Clear Urine Color Bright Yellow Extremities Exam Extremities exam: Present normal capillary refill, normal inspection, Foot pink and warm and neurovascular intact OBJ DATA Labs CBC & Chem 7: 08/02/21 05:20 07/31/21 15:49 Labs: Abnormal Lab Results 08/01/21 07/31/21 07/31/21 09:56 16:44 15:49 WBC Neut % (Auto) Lymph % (Auto) Absolute Neutrophils ESR Sodium 129 L Chloride 92 L Glucose 216 H Hemoglobin A1c 8.4 H C-Reactive Protein 13.00 H Synovial Neutrophils 97 H 07/31/21 15:49 WBC 11.8 H Neut % (Auto) 78.7 H Lymph % (Auto) 13.1 L Absolute Neutrophils 9.32 H ESR 47 H Sodium Chloride Glucose Hemoglobin A1c C-Reactive Protein Synovial Neutrophils Meds: Medications Acetaminophen (Acetaminophen 325 Mg Tablet) 650 mg PO Q6HP PRN; Protocol PRN Reason: Per Pain Protocol/Fever > 101 Hydrocodone Bitart/Acetaminophen (Hydrocodone/Apap 10/325mg Tablet) 1 - 2 tab PO Q4HP PRN; Protocol PRN Reason: Per Pain Protocol Last Admin: 08/02/21 16:31 Dose: 2 tab Documented by: Aspirin (Aspirin 81 Mg Tab.Chew) [address] [facility] Last Admin: 08/02/21 07:54 Dose: 81 mg Documented by: Atorvastatin Calcium (Atorvastatin 10 Mg Tablet) [address] [facility] Last Admin: 08/01/21 20:48 Dose: 10 mg Documented by: Bisacodyl (Bisacodyl 10 Mg Supp.Rect) 10 mg AR Q2-3DAYS PRN PRN Reason: Constipation Bupropion HCl (Bupropion 150 Mg Tab.Xl.24h) [address] [facility] Last Admin: 08/02/21 07:56 Dose: 300 mg Documented by: Docusate Sodium (Docusate Sodium 100 Mg Capsule) [address] [facility] Last Admin: 08/02/21 07:55 Dose: 100 mg Documented by: Gabapentin (Gabapentin 300 Mg Capsule) [address] [facility] Last Admin: 08/02/21 16:45 Dose: 300 mg Documented by: Glimepiride (Glimepiride 2 Mg Tablet) [address] [facility] Last Admin: 08/02/21 16:34 Dose: 2 mg Documented by: Heparin Sodium (Porcine) (Heparin Flush 10 Units/Ml 5 Ml Syringe) [address] [facility] Last Admin: 08/02/21 16:30 Dose: 2 ml Documented by: Hydrochlorothiazide (Hydrochlorothiazide 12.5 Mg Capsule) 12.[address] [facility] Last Admin: 08/02/21 07:55 Dose: 12.5 mg Documented by: Hydromorphone HCl (Hydromorphone 1 Mg/Ml Syringe) 0.5 - 2 mg IV Q2HP PRN; Protocol PRN Reason: Per Pain Protocol Last Admin: 08/02/21 14:31 Dose: 1 mg Documented by: Lactated Ringer's (Lactated Ringers) 1,000 mls @ 50 mls/hr IV .Q20H [facility] Last Admin: 08/02/21 10:15 Dose: Not Given Documented by: Sodium Chloride (Sodium Chloride 0.45%) 1,000 mls @ 100 mls/hr IV .Q10H [facility] Last Admin: 08/02/21 10:16 Dose: Not Given Documented by: Insulin Glargine (Insulin Glargine, Human 1 Unit/0.01 Ml) [address] [facility] Last Admin: 08/02/21 07:52 Dose: 50 units Documented by: Iron Carb/Multivit/Pitman/Folic Acid (Multivit,Ther Iron,Ca,Fa & Min 1 Tablet) [address] [facility] Last Admin: 08/02/21 07:55 Dose: 1 tab Documented by: Lisinopril (Lisinopril 10 Mg Tablet) [address] [facility] Last Admin: 08/02/21 07:55 Dose: 10 mg Documented by: Magnesium Hydroxide (Magnesium Hydroxide 30 Ml Oral.Susp) 30 ml PO BIDP PRN PRN Reason: Constipation Metformin HCl (Metformin 850 Mg Tablet) [address] [facility] Last Admin: 08/02/21 16:31 Dose: 850 mg Documented by: Ondansetron HCl (Ondansetron 4 Mg/2 Ml Vial) 4 mg IV Q4HP PRN PRN Reason: Nausea And Vomiting Last Admin: 08/01/21 22:47 Dose: 4 mg Documented by: Oxybutynin Chloride (Oxybutynin Chloride 5 Mg Tab.Xl.24h) [address] [facility] Last Admin: 08/02/21 07:56 Dose: 10 mg Documented by: Oxycodone HCl (Oxycodone Hcl 5 Mg Tablet) 7.5 mg PO Q8HP PRN PRN Reason: Pain Last Admin: 08/02/21 09:05 Dose: 7.5 mg Documented by: Polyethylene Glycol (Polyethylene Glycol 3350 17 Gm Packet) 17 gm PO DAILYP PRN PRN Reason: Constipation Senna (Sennosides 1 Tablet) [address] [facility] Last Admin: 08/01/21 20:48 Dose: Not Given Documented by: Sodium Biphosphate/Sodium Phosphate (Fleets Adult Enema) 1 dose AR Q3-4DAYS PRN PRN Reason: Constipation Sodium Chloride (0.9 % Sodium Chloride 10 Ml Syringe) [address] [facility] Last Admin: 08/02/21 14:34 Dose: 10 ml Documented by: Sodium Chloride (0.9 % Sodium Chloride 10 Ml Syringe) 10 ml IV UD PRN PRN Reason: FLUSH Sodium Chloride (0.9 % Sodium Chloride 10 Ml Syringe) [address] [facility] Temazepam (Temazepam 15 Mg Capsule) 15 mg PO HSP PRN PRN Reason: Insomnia Throat Lozenges (Benzocaine/Menthol 1 Lozenge) 1 lozenge PO PRN PRN PRN Reason: Sore Throat Last Admin: 08/02/21 16:34 Dose: 1 lozenge Documented by: Tramadol HCl (Tramadol 50 Mg Tablet) [address] [facility] Last Admin: 08/01/21 20:47 Dose: 50 mg Documented by: A/P Narrative A/P Narrative: The patient has been educated regarding dressing care, , restrictions, and follow up appointments. The patient has had all necessary DME prescribed. The patient has remained relatively stable during their hospital course. Time Spent With Patient Time: Total time spent is greater than 50% in coordination of care (as documented) at patient's floor/unit and/or counseling patient: Total time spent with greater than 50% in coordination of care (as documented) at patient's floor/unit and/or counseling patient:: less than 15 minutes Critical Care Time: No
--- NOTE | 2021-08-02 18:53 | Orthopedic Progress Note ---
SUBJECTIVE Subjective Patient information: Note initiated : 08/02/21 at 6:50 pm Service Date, if different from initiated Date: [] Patient: Jeannie Esposito 65 y/o F admitted on 07/31/21 for right knee pain. Chief Complaint: [pain in right knee for 3 days now post op day1] Principal diagnosis: septic tka Constitutional Vitals: Vital Signs Temp Pulse Resp BP Pulse Ox 97.3 F 89 18 146/80 97 08/02/21 11:17 08/02/21 11:17 08/02/21 11:17 08/02/21 11:17 08/02/21 16:00 Period Temp Pulse Resp BP Sys/Kelley Pulse Ox Last 24 Hr 96.8 F-97.7 F 86-100 16-20 136-161/76-88 90-100 Intake and Output 08/02/21 08/02/21 08/02/21 05:59 13:59 21:59 Intake Total 500 240 480 Output Total 1350 Balance -850 240 480 Intake & Output: Intake & Output 08/02/21 08/02/21 08/02/21 05:59 13:59 21:59 Intake Total 500 240 480 Output Total 1350 Balance -850 240 480 Intake: Oral 500 240 480 Output: Void Amount 1350 Other: Urine Appearance Clear Urine Color Bright Yellow Extremities Exam Extremities exam: Present joint swelling, Foot pink and warm and neurovascular intact OBJ DATA Labs CBC & Chem 7: 08/02/21 05:20 07/31/21 15:49 Labs: Abnormal Lab Results 08/01/21 07/31/21 07/31/21 09:56 16:44 15:49 WBC Neut % (Auto) Lymph % (Auto) Absolute Neutrophils ESR Sodium 129 L Chloride 92 L Glucose 216 H Hemoglobin A1c 8.4 H C-Reactive Protein 13.00 H Synovial Neutrophils 97 H 07/31/21 15:49 WBC 11.8 H Neut % (Auto) 78.7 H Lymph % (Auto) 13.1 L Absolute Neutrophils 9.32 H ESR 47 H Sodium Chloride Glucose Hemoglobin A1c C-Reactive Protein Synovial Neutrophils Meds: Medications Acetaminophen (Acetaminophen 325 Mg Tablet) 650 mg PO Q6HP PRN; Protocol PRN Reason: Per Pain Protocol/Fever > 101 Aspirin (Aspirin 81 Mg Tab.Chew) 81 mg PO BID [facility] Last Admin: 08/02/21 07:54 Dose: 81 mg Documented by: Atorvastatin Calcium (Atorvastatin 10 Mg Tablet) 10 mg PO HS [facility] Last Admin: 08/01/21 20:48 Dose: 10 mg Documented by: Bisacodyl (Bisacodyl 10 Mg Supp.Rect) 10 mg FL Q2-3DAYS PRN PRN Reason: Constipation Bupropion HCl (Bupropion 150 Mg Tab.Xl.24h) 300 mg PO DAILY [facility] Last Admin: 08/02/21 07:56 Dose: 300 mg Documented by: Docusate Sodium (Docusate Sodium 100 Mg Capsule) 100 mg PO BID [facility] Last Admin: 08/02/21 07:55 Dose: 100 mg Documented by: Gabapentin (Gabapentin 300 Mg Capsule) 300 mg PO TID [facility] Last Admin: 08/02/21 16:45 Dose: 300 mg Documented by: Glimepiride (Glimepiride 2 Mg Tablet) 2 mg PO BIDAC [facility] Last Admin: 08/02/21 16:34 Dose: 2 mg Documented by: Heparin Sodium (Porcine) (Heparin Flush 10 Units/Ml 5 Ml Syringe) 2 ml IV Q12 [facility] Last Admin: 08/02/21 16:30 Dose: 2 ml Documented by: Hydrochlorothiazide (Hydrochlorothiazide 12.5 Mg Capsule) 12.5 mg PO DAILY [facility] Last Admin: 08/02/21 07:55 Dose: 12.5 mg Documented by: Hydromorphone HCl (Hydromorphone 1 Mg/Ml Syringe) 0.5 - 2 mg IV Q2HP PRN; Protocol PRN Reason: Per Pain Protocol Last Admin: 08/02/21 14:31 Dose: 1 mg Documented by: Lactated Ringer's (Lactated Ringers) 1,000 mls @ 50 mls/hr IV .Q20H [facility] Last Admin: 08/02/21 10:15 Dose: Not Given Documented by: Sodium Chloride (Sodium Chloride 0.45%) 1,000 mls @ 100 mls/hr IV .Q10H [facility] Last Admin: 08/02/21 10:16 Dose: Not Given Documented by: Vancomycin HCl 1,500 mg/ (Sodium Chloride) 500 mls @ 333.3 mls/hr IV Q24H [facility]; Protocol Insulin Glargine (Insulin Glargine, Human 1 Unit/0.01 Ml) 50 unit SQ QDAY [facility] Last Admin: 08/02/21 07:52 Dose: 50 units Documented by: Iron Carb/Multivit/[place]/Folic Acid (Multivit,Ther Iron,Ca,Fa & Min 1 Tablet) 1 tab PO DAILY [facility] Last Admin: 08/02/21 07:55 Dose: 1 tab Documented by: Lisinopril (Lisinopril 10 Mg Tablet) 10 mg PO DAILY [facility] Last Admin: 08/02/21 07:55 Dose: 10 mg Documented by: Magnesium Hydroxide (Magnesium Hydroxide 30 Ml Oral.Susp) 30 ml PO BIDP PRN PRN Reason: Constipation Metformin HCl (Metformin 850 Mg Tablet) 850 mg PO TIDCC [facility] Last Admin: 08/02/21 16:31 Dose: 850 mg Documented by: Ondansetron HCl (Ondansetron 4 Mg/2 Ml Vial) 4 mg IV Q4HP PRN PRN Reason: Nausea And Vomiting Last Admin: 08/01/21 22:47 Dose: 4 mg Documented by: Oxybutynin Chloride (Oxybutynin Chloride 5 Mg Tab.Xl.24h) 10 mg PO DAILY [facility] Last Admin: 08/02/21 07:56 Dose: 10 mg Documented by: Oxycodone HCl (Oxycodone Hcl 5 Mg Tablet) 10 mg PO Q4-6HP PRN; Protocol PRN Reason: Per Pain Protocol Polyethylene Glycol (Polyethylene Glycol 3350 17 Gm Packet) 17 gm PO DAILYP PRN PRN Reason: Constipation Senna (Sennosides 1 Tablet) 2 tab PO HS [facility] Last Admin: 08/01/21 20:48 Dose: Not Given Documented by: Sodium Biphosphate/Sodium Phosphate (Fleets Adult Enema) 1 dose FL Q3-4DAYS PRN PRN Reason: Constipation Sodium Chloride (0.9 % Sodium Chloride 10 Ml Syringe) 10 ml IV Q8 [facility] Last Admin: 08/02/21 14:34 Dose: 10 ml Documented by: Sodium Chloride (0.9 % Sodium Chloride 10 Ml Syringe) 10 ml IV UD PRN PRN Reason: FLUSH Sodium Chloride (0.9 % Sodium Chloride 10 Ml Syringe) 10 ml IV Q12 [facility] Temazepam (Temazepam 15 Mg Capsule) 15 mg PO HSP PRN PRN Reason: Insomnia Throat Lozenges (Benzocaine/Menthol 1 Lozenge) 1 lozenge PO PRN PRN PRN Reason: Sore Throat Last Admin: 08/02/21 16:34 Dose: 1 lozenge Documented by: Tramadol HCl (Tramadol 50 Mg Tablet) 50 mg PO QHS [facility] Last Admin: 08/01/21 20:47 Dose: 50 mg Documented by: A/P Narrative A/P Narrative: picc line placement start antibiotics Plan of Treatment: antibiotic treatment for 6 weeks Time Spent With Patient Time: Total time spent is greater than 50% in coordination of care (as documented) at patient's floor/unit and/or counseling patient: Total time spent with greater than 50% in coordination of care (as documented) at patient's floor/unit and/or counseling patient:: 15 - 24 minutes
[2021-08-02] MEDS ORDERED: VANCOMYCIN 1,500 MG in 0.9 % SODIUM CHLORIDE 500 ML IV SCH (19:00)
--- NOTE | 2021-08-02 19:49 | Consultation ---
DATE OF CONSULTATION: 08/02/2021 HISTORY OF PRESENT ILLNESS: The patient was seen in the emergency room on 07/31 with significant pain, swelling and inability to ambulate. The patient is a 65-year-old female who has had symptoms for about 3 days with pain and swelling. No history of recent trauma other than a scratch on her foot. She does have a history of atrial septal defect. She had a prior infection few years ago in this total knee where she was debrided. irrigated that was placed in 2017 after she became septic. She denies fevers, rigors, chills, headaches or neck pain, just more knee pain. MEDICATIONS: Includes: 1. Lipitor. 2. Aspirin. 3. Bupropion. 4. Glimepiride. 5. Lisinopril. 6. Metformin 850 mg tablet. 7. Oxybutynin 10 mg. 8. Gabapentin 300 mg p.o. t.i.d. 9. Multivitamins. 10. Folic acid. 11. Hydrocodone. 12. Insulin. 13. Rifampin 300 mg p.o. every day that she had taken on prior surgeries. ALLERGIES: NO KNOWN DRUG ALLERGIES. REVIEW OF SYSTEMS: Negative for chest pain, shortness of breath. FAMILY HISTORY: Noncontributory. PAST SURGICAL HISTORY: She has had a prior septic total knee arthroplasty, history of total knee arthroplasty on the right side as noted. PHYSICAL EXAMINATION: General: Very pleasant female who appears to be in no acute distress, gives an excellent history. Vital Signs: Temperature of 98.5, pulse 100, respiratory rate is 16, blood pressure 165/111, pulse oximetry 97%. Head and Neck: Atraumatic, normocephalic. Range of motion of the neck is supple. Extraocular movements intact. Ear, nose, and throat, mucous moist. Tongue midline. Neck is supple, nontender. Chest: Clear to auscultation bilaterally. Respiratory rate nonlabored. Cardiovascular: Regular rate. Respiratory rate is nondistressed and about 12 breaths per minute. Back: Nontender. Neurologic: The patient has normal cranial nerves and normal light touch sensation to the lower extremities. Extremities: The right knee was warm, no rashes, no erythema. COURSE: A 65-year-old female who we talked about the risks and the benefits of the surgery and what we would do is a complete revision given the fact she has had a poly liner exchange removed year ago and did well. This has recurred the source of which could be intraarticular or peripheral. LABORATORY DATA: It was reviewed. White cell count of 11.8, hemoglobin of 12.9, hematocrit of 37.9. PMNs or neutrophils 78.7%, high normal. Lymphs are 13.1, low normal. X-rays are normal findings. Aspirate from the knee from the emergency room physician shows an increased purulence within the material. This was sent for a count at that time. There was no cell count returned or cultures returned. IMPRESSION: Septic knee. The treatment will be complete revision, understanding the risks and benefits and agreed to proceed. RBH:kaydoe Job ID: [id number] Doc ID: [id number] Rodrigo Aparicio MD
[2021-08-02] MEDS: traMADol 50 MG TABLET PO SCH (20:10)
[2021-08-02] MEDS: SENNOSIDES 1 TABLET PO SCH (20:10)
[2021-08-02] MEDS: ATORVASTATIN 10 MG TABLET PO SCH (20:11)
[2021-08-03] MEDS: oxyCODONE HCL 5 MG TABLET PO PRN ×5 (02:02→20:36)
[2021-08-03] MEDS: HYDROmorphone 1 MG/ML SYRINGE IV PRN (05:23)
[2021-08-03] MEDS: 0.9 % SODIUM CHLORIDE 10 ML SYRINGE IV SCH ×5 (05:24→20:37)
[2021-08-03] MEDS: LACTATED RINGERS 1,000 ML IV SCH (05:31)
[2021-08-03] MEDS: 0.45 % SODIUM CHLORIDE 1,000 ML IV SCH ×2 (05:35→15:42)
[2021-08-03] MEDS: metFORMIN 850 MG TABLET PO SCH ×3 (07:00→17:01)
[2021-08-03] MEDS: GLIMEPIRIDE 2 MG TABLET PO SCH ×2 (07:00→17:01)
[2021-08-03] MEDS ORDERED: VANCOMYCIN PER PHARMACY IV SCH (07:55)
--- NOTE | 2021-08-03 07:55 | Orthopedic Progress Note ---
SUBJECTIVE Subjective Patient information: Note initiated : 08/03/21 at 7:54 am Service Date, if different from initiated Date: [] Patient: Jeannie Esposito 65 y/o F admitted on 07/31/21 for right knee pain. Chief Complaint: [] Principal diagnosis: septic tka Constitutional Vitals: Vital Signs Temp Pulse Resp BP Pulse Ox 98.1 F 82 18 154/82 93 08/03/21 07:43 08/03/21 07:43 08/03/21 07:43 08/03/21 07:43 08/03/21 07:43 Period Temp Pulse Resp BP Sys/Kelley Pulse Ox Last 24 Hr 97.3 F-98.5 F 82-93 14-18 132-154/66-82 93-99 Intake and Output 08/02/21 08/03/21 08/03/21 21:59 05:59 13:59 Intake Total 2280 500 Output Total 250 600 450 Balance 2030 -100 -450 Weight 189 lb 3.2 oz Intake & Output: Intake & Output 08/02/21 08/03/21 08/03/21 21:59 05:59 13:59 Intake Total 2280 500 Output Total 250 600 450 Balance 2030 -100 -450 Weight 189 lb 3.2 oz Intake: IV 1000 500 Lactated Ringers 1,000 ml @ 50 1000 mls/hr IV .Q20H [facility] Rx#: [id number] Vancomycin 1,500 mg In Sodium 500 Chloride 0.9% 500 ml @ 333.3 mls/hr IV Q24H [facility] Rx#: [id number] Oral 1280 Output: Void Amount 250 600 450 Other: Meal martín crackers Percent of Meal Consumed 100% Urine Appearance Clear Clear Urine Color Pale Straw Urine Odor Normal Extremities Exam Extremities exam: Present joint swelling, Foot pink and warm and neurovascular intact OBJ DATA Labs CBC & Chem 7: 08/02/21 05:20 07/31/21 15:49 Labs: Abnormal Lab Results 08/01/21 07/31/21 07/31/21 09:56 16:44 15:49 WBC Neut % (Auto) Lymph % (Auto) Absolute Neutrophils ESR Sodium 129 L Chloride 92 L Glucose 216 H Hemoglobin A1c 8.4 H C-Reactive Protein 13.00 H Synovial Neutrophils 97 H 07/31/21 15:49 WBC 11.8 H Neut % (Auto) 78.7 H Lymph % (Auto) 13.1 L Absolute Neutrophils 9.32 H ESR 47 H Sodium Chloride Glucose Hemoglobin A1c C-Reactive Protein Synovial Neutrophils Meds: Medications Acetaminophen (Acetaminophen 325 Mg Tablet) 650 mg PO Q6HP PRN; Protocol PRN Reason: Per Pain Protocol/Fever > 101 Aspirin (Aspirin 81 Mg Tab.Chew) 81 mg PO BID [facility] Last Admin: 08/02/21 20:10 Dose: 81 mg Documented by: Atorvastatin Calcium (Atorvastatin 10 Mg Tablet) 10 mg PO HS [facility] Last Admin: 08/02/21 20:11 Dose: 10 mg Documented by: Bisacodyl (Bisacodyl 10 Mg Supp.Rect) 10 mg ND Q2-3DAYS PRN PRN Reason: Constipation Bupropion HCl (Bupropion 150 Mg Tab.Xl.24h) 300 mg PO DAILY [facility] Last Admin: 08/02/21 07:56 Dose: 300 mg Documented by: Docusate Sodium (Docusate Sodium 100 Mg Capsule) 100 mg PO BID [facility] Last Admin: 08/02/21 20:10 Dose: 100 mg Documented by: Gabapentin (Gabapentin 300 Mg Capsule) 300 mg PO TID [facility] Last Admin: 08/02/21 20:10 Dose: 300 mg Documented by: Glimepiride (Glimepiride 2 Mg Tablet) 2 mg PO BIDAC [facility] Last Admin: 08/03/21 07:00 Dose: 2 mg Documented by: Heparin Sodium (Porcine) (Heparin Flush 10 Units/Ml 5 Ml Syringe) 2 ml IV Q12 [facility] Last Admin: 08/02/21 20:11 Dose: 2 ml Documented by: Hydrochlorothiazide (Hydrochlorothiazide 12.5 Mg Capsule) 12.5 mg PO DAILY [facility] Last Admin: 08/02/21 07:55 Dose: 12.5 mg Documented by: Hydromorphone HCl (Hydromorphone 1 Mg/Ml Syringe) 0.5 - 2 mg IV Q2HP PRN; Protocol PRN Reason: Per Pain Protocol Last Admin: 08/03/21 05:23 Dose: 1 mg Documented by: Lactated Ringer's (Lactated Ringers) 1,000 mls @ 50 mls/hr IV .Q20H [facility] Last Admin: 08/03/21 05:31 Dose: Not Given Documented by: Sodium Chloride (Sodium Chloride 0.45%) 1,000 mls @ 100 mls/hr IV .Q10H [facility] Last Admin: 08/03/21 05:35 Dose: Not Given Documented by: Vancomycin HCl 1,500 mg/ (Sodium Chloride) 500 mls @ 333.3 mls/hr IV Q24H [facility]; Protocol Last Infusion: 08/02/21 22:30 Dose: Infused Documented by: Insulin Glargine (Insulin Glargine, Human 1 Unit/0.01 Ml) 50 unit SQ QDAY [facility] Last Admin: 08/02/21 07:52 Dose: 50 units Documented by: Iron Carb/Multivit/[place]/Folic Acid (Multivit,Ther Iron,Ca,Fa & Min 1 Tablet) 1 tab PO DAILY [facility] Last Admin: 08/02/21 07:55 Dose: 1 tab Documented by: Lisinopril (Lisinopril 10 Mg Tablet) 10 mg PO DAILY [facility] Last Admin: 08/02/21 07:55 Dose: 10 mg Documented by: Magnesium Hydroxide (Magnesium Hydroxide 30 Ml Oral.Susp) 30 ml PO BIDP PRN PRN Reason: Constipation Metformin HCl (Metformin 850 Mg Tablet) 850 mg PO TIDCC [facility] Last Admin: 08/03/21 07:00 Dose: 850 mg Documented by: Ondansetron HCl (Ondansetron 4 Mg/2 Ml Vial) 4 mg IV Q4HP PRN PRN Reason: Nausea And Vomiting Last Admin: 08/01/21 22:47 Dose: 4 mg Documented by: Oxybutynin Chloride (Oxybutynin Chloride 5 Mg Tab.Xl.24h) 10 mg PO DAILY [facility] Last Admin: 08/02/21 07:56 Dose: 10 mg Documented by: Oxycodone HCl (Oxycodone Hcl 5 Mg Tablet) 10 mg PO Q4-6HP PRN; Protocol PRN Reason: Per Pain Protocol Last Admin: 08/03/21 07:00 Dose: 10 mg Documented by: Polyethylene Glycol (Polyethylene Glycol 3350 17 Gm Packet) 17 gm PO DAILYP PRN PRN Reason: Constipation Senna (Sennosides 1 Tablet) 2 tab PO HS [facility] Last Admin: 08/02/21 20:10 Dose: 2 tab Documented by: Sodium Biphosphate/Sodium Phosphate (Fleets Adult Enema) 1 dose ND Q3-4DAYS PRN PRN Reason: Constipation Sodium Chloride (0.9 % Sodium Chloride 10 Ml Syringe) 10 ml IV Q8 [facility] Last Admin: 08/03/21 05:24 Dose: 10 ml Documented by: Sodium Chloride (0.9 % Sodium Chloride 10 Ml Syringe) 10 ml IV UD PRN PRN Reason: FLUSH Sodium Chloride (0.9 % Sodium Chloride 10 Ml Syringe) 10 ml IV Q12 [facility] Last Admin: 08/02/21 23:45 Dose: Not Given Documented by: Temazepam (Temazepam 15 Mg Capsule) 15 mg PO HSP PRN PRN Reason: Insomnia Throat Lozenges (Benzocaine/Menthol 1 Lozenge) 1 lozenge PO PRN PRN PRN Reason: Sore Throat Last Admin: 08/02/21 16:34 Dose: 1 lozenge Documented by: Tramadol HCl (Tramadol 50 Mg Tablet) 50 mg PO QHS [facility] Last Admin: 08/02/21 20:10 Dose: 50 mg Documented by: A/P Narrative A/P Narrative: d/c home once vanc level checked Plan of Treatment: antibiotic treatment for 6 weeks Time Spent With Patient Time: Total time spent is greater than 50% in coordination of care (as documented) at patient's floor/unit and/or counseling patient:
[2021-08-03] MEDS: LISINOPRIL 10 MG TABLET PO SCH (08:31)
[2021-08-03] MEDS: OXYBUTYNIN CHLORIDE 5 MG TAB.XL.24H PO SCH (08:31)
[2021-08-03] MEDS: buPROPion 150 MG TAB.XL.24H PO SCH (08:31)
[2021-08-03] MEDS: HYDROCHLOROTHIAZIDE 12.5 MG CAPSULE PO SCH (08:31)
[2021-08-03] MEDS: MULTIVIT,THER IRON,CA,FA & MIN 1 TABLET PO SCH (08:31)
[2021-08-03] MEDS: DOCUSATE SODIUM 100 MG CAPSULE PO SCH ×2 (08:31→20:36)
[2021-08-03] MEDS: GABAPENTIN 300 MG CAPSULE PO SCH ×3 (08:31→20:36)
[2021-08-03] MEDS: ASPIRIN 81 MG TAB.CHEW PO SCH ×2 (08:31→20:36)
[2021-08-03] MEDS: RIFAMPIN 300 MG CAPSULE PO SCH ×3 (08:32→20:35)
[2021-08-03] MEDS: INSULIN GLARGINE, HUMAN 1 UNIT/0.01 ML SQ SCH (08:42)
[2021-08-03] MEDS ORDERED: [UNRECOGNIZED DRUG - OTHER] PO SCH (09:00)
[2021-08-03 09:08] LABS: Vancomycin,Random 7.9 ug/mL
[2021-08-03] MEDS: VANCOMYCIN 1,500 MG in 0.9 % SODIUM CHLORIDE 500 ML IV SCH ×2 (09:44→20:35)
[2021-08-03] MEDS: METHOCARBAMOL 750 MG TABLET PO PRN ×2 (13:11→20:37)
[2021-08-03] MEDS: ONDANSETRON 4 MG/2 ML VIAL IV PRN ×2 (13:11→20:35)
[2021-08-03] MEDS: SENNOSIDES 1 TABLET PO SCH (20:36)
[2021-08-03] MEDS: traMADol 50 MG TABLET PO SCH (20:37)
[2021-08-03] MEDS: ATORVASTATIN 10 MG TABLET PO SCH (20:37)
[2021-08-04] MEDS: oxyCODONE HCL 5 MG TABLET PO PRN ×4 (01:18→14:01)
[2021-08-04] MEDS: LACTATED RINGERS 1,000 ML IV SCH (02:26)
[2021-08-04] MEDS: 0.45 % SODIUM CHLORIDE 1,000 ML IV SCH ×2 (02:26→12:07)
[2021-08-04] MEDS: 0.9 % SODIUM CHLORIDE 10 ML SYRINGE IV SCH ×2 (05:34→12:07)
[2021-08-04] MEDS: ONDANSETRON 4 MG/2 ML VIAL IV PRN (05:37)
[2021-08-04] MEDS: GLIMEPIRIDE 2 MG TABLET PO SCH (08:04)
[2021-08-04] MEDS: metFORMIN 850 MG TABLET PO SCH ×2 (08:04→12:32)
[2021-08-04] MEDS: RIFAMPIN 300 MG CAPSULE PO SCH (08:04)
[2021-08-04] MEDS: METHOCARBAMOL 750 MG TABLET PO PRN ×2 (08:08→14:02)
[2021-08-04] MEDS: INSULIN GLARGINE, HUMAN 1 UNIT/0.01 ML SQ SCH (09:57)
[2021-08-04] MEDS: buPROPion 150 MG TAB.XL.24H PO SCH (09:58)
[2021-08-04] MEDS: OXYBUTYNIN CHLORIDE 5 MG TAB.XL.24H PO SCH (09:58)
[2021-08-04] MEDS: LISINOPRIL 10 MG TABLET PO SCH (09:59)
[2021-08-04] MEDS: GABAPENTIN 300 MG CAPSULE PO SCH (09:59)
[2021-08-04] MEDS: ASPIRIN 81 MG TAB.CHEW PO SCH (09:59)
[2021-08-04] MEDS: HYDROCHLOROTHIAZIDE 12.5 MG CAPSULE PO SCH (09:59)
[2021-08-04] MEDS: MULTIVIT,THER IRON,CA,FA & MIN 1 TABLET PO SCH (10:00)
[2021-08-04] MEDS: DOCUSATE SODIUM 100 MG CAPSULE PO SCH (10:00)
--- NOTE | 2021-08-04 10:41 | Orthopedic Progress Note ---
SUBJECTIVE Subjective Patient information: Note initiated : 08/04/21 at 10:38 am Service Date, if different from initiated Date: [] Patient: Jeannie Esposito 65 y/o F admitted on 07/31/21 for right knee pain. Chief Complaint: [pain in back of knee] Principal diagnosis: septic tka Constitutional Vitals: Vital Signs Temp Pulse Resp BP Pulse Ox 97.1 F 82 18 145/69 95 08/04/21 07:45 08/04/21 07:45 08/04/21 07:45 08/04/21 07:45 08/04/21 07:45 Period Temp Pulse Resp BP Sys/Kelley Pulse Ox Last 24 Hr 97.1 F-99.1 F 82-98 15-18 136-163/69-88 95-99 Intake and Output 08/03/21 08/04/21 08/04/21 21:59 05:59 13:59 Intake Total 1060 500 Balance 1060 500 Weight 185 lb 11.2 oz Intake & Output: Intake & Output 08/03/21 08/04/21 08/04/21 21:59 05:59 13:59 Intake Total 1060 500 Balance 1060 500 Weight 185 lb 11.2 oz Intake: IV 500 Vancomycin 1,500 mg In Sodium 500 Chloride 0.9% 500 ml @ 333.3 mls/hr IV Q12H [facility] Rx#: [id number] Oral 1060 Other: Meal Dinner Percent of Meal Consumed 75% # Voids 1 1 Expanded Lower Extremity Exam Gait: Present antalgic and observed and limited by pain Neurological Exam Neurological exam: Present CN II-XII intact and oriented X3 OBJ DATA Labs CBC & Chem 7: 08/02/21 05:20 07/31/21 15:49 Labs: Abnormal Lab Results 08/01/21 09:56 Hemoglobin A1c 8.4 H Meds: Medications Acetaminophen (Acetaminophen 325 Mg Tablet) 650 mg PO Q6HP PRN; Protocol PRN Reason: Per Pain Protocol/Fever > 101 Aspirin (Aspirin 81 Mg Tab.Chew) 81 mg PO BID [facility] Last Admin: 08/04/21 09:59 Dose: 81 mg Documented by: Atorvastatin Calcium (Atorvastatin 10 Mg Tablet) 10 mg PO HS [facility] Last Admin: 08/03/21 20:37 Dose: 10 mg Documented by: Bisacodyl (Bisacodyl 10 Mg Supp.Rect) 10 mg [place] Q2-3DAYS PRN PRN Reason: Constipation Bupropion HCl (Bupropion 150 Mg Tab.Xl.24h) 300 mg PO DAILY [facility] Last Admin: 08/04/21 09:58 Dose: 300 mg Documented by: Docusate Sodium (Docusate Sodium 100 Mg Capsule) 100 mg PO BID [facility] Last Admin: 08/04/21 10:00 Dose: Not Given Documented by: Gabapentin (Gabapentin 300 Mg Capsule) 300 mg PO TID [facility] Last Admin: 08/04/21 09:59 Dose: 300 mg Documented by: Glimepiride (Glimepiride 2 Mg Tablet) 2 mg PO BIDAC [facility] Last Admin: 08/04/21 08:04 Dose: 2 mg Documented by: Heparin Sodium (Porcine) (Heparin Flush 10 Units/Ml 5 Ml Syringe) 2 ml IV Q12 [facility] Last Admin: 08/04/21 10:00 Dose: 2 ml Documented by: Hydrochlorothiazide (Hydrochlorothiazide 12.5 Mg Capsule) 12.5 mg PO DAILY [facility] Last Admin: 08/04/21 09:59 Dose: 12.5 mg Documented by: Hydromorphone HCl (Hydromorphone 1 Mg/Ml Syringe) 0.5 - 2 mg IV Q2HP PRN; Protocol PRN Reason: Per Pain Protocol Last Admin: 08/03/21 05:23 Dose: 1 mg Documented by: Lactated Ringer's (Lactated Ringers) 1,000 mls @ 50 mls/hr IV .Q20H [facility] Last Admin: 08/04/21 02:26 Dose: Not Given Documented by: Sodium Chloride (Sodium Chloride 0.45%) 1,000 mls @ 100 mls/hr IV .Q10H [facility] Last Admin: 08/04/21 02:26 Dose: Not Given Documented by: Vancomycin HCl 1,500 mg/ (Sodium Chloride) 500 mls @ 333.3 mls/hr IV Q12H [facility] Last Infusion: 08/03/21 22:40 Dose: Infused Documented by: Insulin Glargine (Insulin Glargine, Human 1 Unit/0.01 Ml) 50 unit SQ QDAY [facility] Last Admin: 08/04/21 09:57 Dose: 50 units Documented by: Iron Carb/Multivit/[place]/Folic Acid (Multivit,Ther Iron,Ca,Fa & Min 1 Tablet) 1 tab PO DAILY [facility] Last Admin: 08/04/21 10:00 Dose: 1 tab Documented by: Lisinopril (Lisinopril 10 Mg Tablet) 10 mg PO DAILY [facility] Last Admin: 08/04/21 09:59 Dose: 10 mg Documented by: Magnesium Hydroxide (Magnesium Hydroxide 30 Ml Oral.Susp) 30 ml PO BIDP PRN PRN Reason: Constipation Metformin HCl (Metformin 850 Mg Tablet) 850 mg PO TIDCC [facility] Last Admin: 08/04/21 08:04 Dose: 850 mg Documented by: Methocarbamol (Methocarbamol 750 Mg Tablet) 750 mg PO TIDP PRN PRN Reason: muscle spasms Last Admin: 08/04/21 08:08 Dose: 750 mg Documented by: Ondansetron HCl (Ondansetron 4 Mg/2 Ml Vial) 4 mg IV Q4HP PRN PRN Reason: Nausea And Vomiting Last Admin: 08/04/21 05:37 Dose: 4 mg Documented by: Oxybutynin Chloride (Oxybutynin Chloride 5 Mg Tab.Xl.24h) 10 mg PO DAILY [facility] Last Admin: 08/04/21 09:58 Dose: 10 mg Documented by: Oxycodone HCl (Oxycodone Hcl 5 Mg Tablet) 10 mg PO Q4-6HP PRN; Protocol PRN Reason: Per Pain Protocol Last Admin: 08/04/21 09:58 Dose: 10 mg Documented by: Polyethylene Glycol (Polyethylene Glycol 3350 17 Gm Packet) 17 gm PO DAILYP PRN PRN Reason: Constipation Rifampin (Rifampin 300 Mg Capsule) 300 mg PO BID@0700,2000 [facility] Last Admin: 08/04/21 08:04 Dose: 300 mg Documented by: Senna (Sennosides 1 Tablet) 2 tab PO HS [facility] Last Admin: 08/03/21 20:36 Dose: Not Given Documented by: Sodium Biphosphate/Sodium Phosphate (Fleets Adult Enema) 1 dose NC Q3-4DAYS PRN PRN Reason: Constipation Sodium Chloride (0.9 % Sodium Chloride 10 Ml Syringe) 10 ml IV Q8 [facility] Last Admin: 08/04/21 05:34 Dose: 10 ml Documented by: Sodium Chloride (0.9 % Sodium Chloride 10 Ml Syringe) 10 ml IV UD PRN PRN Reason: FLUSH Sodium Chloride (0.9 % Sodium Chloride 10 Ml Syringe) 10 ml IV Q12 [facility] Last Admin: 08/03/21 20:37 Dose: Not Given Documented by: Temazepam (Temazepam 15 Mg Capsule) 15 mg PO HSP PRN PRN Reason: Insomnia Throat Lozenges (Benzocaine/Menthol 1 Lozenge) 1 lozenge PO PRN PRN PRN Reason: Sore Throat Last Admin: 08/02/21 16:34 Dose: 1 lozenge Documented by: Tramadol HCl (Tramadol 50 Mg Tablet) 50 mg PO QHS [facility] Last Admin: 08/03/21 20:37 Dose: 50 mg Documented by: Vancomycin HCl (Vancomycin Per Pharmacy) 1 order IV UD [facility]; Protocol A/P Narrative A/P Narrative: moving foot up and down with minimal pain not wanting to walk but sleeping well d/c home Plan of Treatment: antibiotic treatment for 6 weeks Time Spent With Patient Time: Total time spent is greater than 50% in coordination of care (as documented) at patient's floor/unit and/or counseling patient: Total time spent with greater than 50% in coordination of care (as documented) at patient's floor/unit and/or counseling patient:: 15 - 24 minutes
[2021-08-04] MEDS: VANCOMYCIN 1,500 MG in 0.9 % SODIUM CHLORIDE 500 ML IV SCH (11:10)
--- NOTE | 2021-08-07 11:18 | Discharge Summary ---
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 HOSPITAL COURSE: Following the procedure on 08/01/2021, the patient was taken to the hospital floor in stable condition where she remained under Orthopedic care over the next 3 days. Her discharge date was on 08/04/2021. She was discharged home in stable condition. She received standard discharge instructions, including PICC line IV antibiotic therapy instructions, oral antibiotic therapy instructions, laboratory instructions, followup instructions, and wound care instructions. Patient will follow up at [facility] as instructed. BAP:shaw Job ID: [id number] Doc ID: [id number] Bill Bernard PA-C
== END 2021-08-04 14:10 | disposition home or self-care (01) | DRG 467 ==
LOC: ED 14:41 → MEDSUR 19:08
PROVIDERS: ADMIT Orthopaedic Surgery; ATTEND Orthopaedic Surgery

== ENCOUNTER 2021-11-05 09:15 | Inpatient (IN) ==
[2021-11-01 19:19] LABS: Appearance,Urine Clear (Clear); Bacteria,Urine FEW /hpf (0); Bilirubin,Urine Negative (Negative); Color,Urine Yellow; Culture Indicated,Urine No; Glucose,Urine (UA) Negative (Negative); Ketones,Urine Trace mg/dL (Negative); Leukocyte Esterase,Urine Negative /uL (Negative); Mucus,Urine FEW /hpf; Nitrate,Urine Negative (Negative); PH,Urine 8.5 (5.0-9.0); Protein,Urine Negative (Negative); Urine Blood Trace-intact ery/mcL (Negative); Urine Hyaline Cast 1 /lph (0-2); Urine RBC < 1 /hpf (0-3); Urine Squamous Epithelial Cell 5 /hpf (0-4); Urine Transitional Epi Cells < 1 /hpf (0-2); Urine WBC 1 /hpf (0-4); Urobilinogen,Urine Normal
[2021-11-01 19:23] LABS: Blood Urea Nitrogen 14 mg/dL (8-23); Calcium 10.1 mg/dL (8.6-10.4); Carbon Dioxide 29 mmol/L (22-30); Chloride 95 mmol/L (96-108); Glomerular Filtration Rate 60; Glucose 80 mg/dL (70-105)
[2021-11-01 19:26] LABS: Basophils # (Auto) 0.04 K/mcL (0.00-0.30); Basophils % (Auto) 0.7 % (0.0-2.0); Eosinophils # (Auto) 0.15 K/mcL (0.00-0.70); Eosinophils % (Auto) 2.5 % (0.0-7.0); Hematocrit 37.2 % (34.1-44.9); Lymphocytes # (Auto) 1.28 K/mcL (1.50-4.80); Lymphocytes % (Auto) 21.3 % (15.5-49.0); Mean Cell Volume 85.9 fL (80.0-100.0); Mean Corpuscular HGB Conc 32.3 g/dL (31.0-36.0); Mean Platelet Volume 9.1 fL (7.4-10.4); Monocytes # (Auto) 0.53 K/mcL (0.10-0.90); Monocytes % (Auto) 8.8 % (1.0-12.0); Neutrophils % (Auto) 66.7 % (38.0-78.0); Platelet Count 276 K/mcL (140-440); RBC 4.33 M/mcL (3.59-5.38); Red Cell Distribution Width 12.7 % (11.5-14.5)
[2021-11-01 19:41] LABS: Estimated Average Glucose(eAG) 180 mg/dL; Hemoglobin A1C 7.9 % Hgb (4.0-6.0)
--- NOTE | 2021-11-05 07:41 | EKG ---
[facility] Test Date: 2021-11-01 Pat Name: Jeannie Esposito Department: RT Room: Gender: Female [employer]: : 1955 Requested By: Tha Keith Order Number: [id number] Reading MD: Jose Alejandro Huizar Measurements Intervals [place] Rate: 71 P: 55 TX: 128 QRS: 55 QRSD: 75 T: 54 QT: 374 QTc: 407 Interpretive Statements Sinus rhythm Probable left atrial enlargement Electronically Signed On 11-05-2021 7:40:55 PDT by Jose Alejandro Huizar /store/[id number]
[~2021-11-05 09:15] MED LIST: ACETAMINOPHEN 500 MG TABLET PO SCH; CELECOXIB 200 MG CAPSULE PO SCH; GABAPENTIN 300 MG CAPSULE PO SCH; IPRATROPIUM/ALBUTEROL 3 ML AMPUL.NEB NEB PRN; SCOPOLAMINE 1 PATCH PATCH TOPICAL PRN; ceFAZolin 2 GM in DEXTROSE 5% IN WATER 50 ML IV SCH; oxyCODONE 10 MG TAB.ER.12H PO SCH
[2021-11-05] MEDS ORDERED: ROPIVACAINE HCL/PF 30 ML VIAL IJ ONE (12:42)
[2021-11-05] MEDS ORDERED: DEXAMETHASONE 10 MG/ML VIAL ONE (12:42)
[2021-11-05] MEDS ORDERED: GLYCOPYRROLATE 0.2 MG/ML VIAL IV ONE (12:42)
[2021-11-05] MEDS ORDERED: TRANEXAMIC ACID 1,000 MG/10 ML VIAL ONE (12:42)
[2021-11-05] MEDS ORDERED: PROPOFOL 200 MG/20 ML VIAL IV ONE (12:42)
[2021-11-05] MEDS ORDERED: MAGNESIUM SULFATE 2 GM/50 ML BAG IV ONE (12:42)
[2021-11-05] MEDS ORDERED: LIDOCAINE HCL/PF 100 MG/5 ML SYRINGE IV ONE (12:42)
[2021-11-05] MEDS ORDERED: ONDANSETRON 4 MG/2 ML VIAL ONE (12:42)
[2021-11-05] MEDS ORDERED: KETAMINE 50 MG/ML Syringe (ANEST) IV ONE (12:42)
--- NOTE | 2021-11-05 12:42 | Discharge Plan ---
Discharge Instructions - TKA Patient Instructions Total Knee Protocol: For Total Knee: Start ROM VIRGEN with stationary bike or rocking chair. Work on gaining full extension of knee. Posterior dislocation precautions provided. Hip abductor strengthening and gait training instructions provided. Apply Cryocuff as instructed. Dressing Care: Aquacel Ag - leave on for 5 days Discharge Plan Patient/Caregiver Discharge Instructions Activity: ambulate only with your walker and as per physical therapy Diet: Regular Diet Prescriptions: New hydrocodone-acetaminophen 10-325 mg tablet 1 - 2 tab PO Q4H PRN (Reason: pain) Qty: 75 0RF aspirin [Ecotrin Low Strength] 81 mg tablet,delayed release (DR/EC) 81 mg PO BID Qty: 60 0RF docusate sodium 100 mg capsule 100 mg PO BID Qty: 60 0RF No Action oxybutynin chloride 10 MG tablet extended release 24hr 15 mg PO DAILY 0RF metformin 850 MG tablet 850 mg PO TIDCC 0RF glimepiride 2 MG tablet 2 mg PO BIDAC 0RF lisinopril-hydrochlorothiazide 1 TAB tablet 1 tab PO DAILY 0RF Rx Instructions: 20-12.5mg bupropion HCl [Wellbutrin XL] 300 MG tablet extended release 24 hr 300 mg PO DAILY 0RF gabapentin 300 mg Capsule 300 mg PO QID 0RF Adults Multivitamin 18 mg iron-400 mcg-25 mcg Tablet 1 tab PO DAILY 0RF tramadol 50 mg Tablet 50 - 100 mg PO Q6HP PRN (Reason: Pain) 0RF insulin glargine [Basaglar KwikPen U-100 Insulin] 100 unit/mL (3 mL) Insulin Pen 50 unit SUBCUT QDAY 0RF atorvastatin [Lipitor] 10 mg Tablet 10 mg PO HS 0RF hydrocodone-acetaminophen 7.5-325 mg Tablet 1 tab PO BID PRN (Reason: Pain) 0RF Januvia 50 mg Tablet 50 mg PO QDAY 0RF Other Ambulatory Orders: CPM Discharge Order (ONCE) Location: None Selected Ordered By: Bill Bernard Physical Therapy DC - TKA (Routine) Location: None Selected Ordered By: Bill Bernard Toilet Riser Discharge Order (ONCE) Location: None Selected Ordered By: Bill Bernard Walker (ONCE) Location: None Selected Ordered By: Bill Bernard Follow Up Plan Follow up with: Rodrigo Aparicio MD [Physician] - 11/21/21 2:20 pm Bill Bernard PA-C [Physician Social Media Sr Strategy Manager] - Patient Disposition: Home, Self-Care Prognosis: Good Rehab Potential: Good I certify that the patient requires SNF services: No Overall status at discharge: patient is progressing back to baseline Discharge Orders: Discharge Order (Routine); Ordered 11/06/21 Ordered By: Bill Bernard
[2021-11-05] MEDS ORDERED: LACTATED RINGERS 250 ML IV PRN (13:58)
[2021-11-05] MEDS ORDERED: PROMETHAZINE 25 MG/ML VIAL IV PRN (13:58)
[2021-11-05] MEDS ORDERED: IPRATROPIUM/ALBUTEROL 3 ML AMPUL.NEB NEB PRN (13:58)
[2021-11-05] MEDS ORDERED: fentaNYL 100 MCG/2 ML VIAL IV PRN (13:58)
[2021-11-05] MEDS ORDERED: NALOXONE HCL 0.4 MG/ML VIAL IV PRN (13:58)
[2021-11-05] MEDS ORDERED: KETOROLAC 30 MG/ML VIAL IV PRN (13:58)
[2021-11-05] MEDS ORDERED: ONDANSETRON 4 MG/2 ML VIAL IV PRN ×2 (13:58→14:43)
[2021-11-05] MEDS ORDERED: MEPERIDINE 25 MG/ML VIAL IV PRN (13:58)
[2021-11-05] MEDS ORDERED: LACTATED RINGERS 1,000 ML IV SCH (14:00)
[2021-11-05] MEDS ORDERED: POLYETHYLENE GLYCOL 3350 17 GM PACKET PO PRN (14:43)
[2021-11-05] MEDS ORDERED: TRANEXAMIC ACID 1,000 MG/10 ML VIAL IV ONE (14:43)
[2021-11-05] MEDS ORDERED: BISACODYL 10 MG SUPP.RECT PR PRN (14:43)
[2021-11-05] MEDS ORDERED: ACETAMINOPHEN 325 MG TABLET PO PRN (14:43)
[2021-11-05] MEDS ORDERED: FLEETS ADULT ENEMA PR PRN (14:43)
[2021-11-05] MEDS ORDERED: TEMAZEPAM 15 MG CAPSULE PO PRN (14:43)
[2021-11-05] MEDS ORDERED: MAGNESIUM HYDROXIDE 30 ML ORAL.SUSP PO PRN (14:43)
--- NOTE | 2021-11-05 14:43 | Brief Operative Note ---
Brief Operative Note Date of procedure: 11/05/21 Pre-op diagnosis: right knee septic joint Post-op diagnosis: same Procedure: Right tka revision 2nd stage Grafts/Implants: Yes Anesthesia: GETA Complications: none Surgeon: Rodrigo Aparicio Axle Inspector: Bill Bernard Estimated blood loss (cc): 54 Tourniquet Time (Minutes): 63 Specimens Removed/Pathology: none sent Condition: stable Disposition: PACU
[2021-11-05] MEDS ORDERED: traMADol 50 MG TABLET PO PRN (15:01)
--- NOTE | 2021-11-05 15:36 | Operative Note ---
DATE OF OPERATION: 11/05/2021 PREOPERATIVE DIAGNOSIS: Right septic knee, stage 2. POSTOPERATIVE DIAGNOSIS: Right septic knee, stage 2. PROCEDURE: Right total knee arthroplasty for a stage 2 revision. Pathology was sent with no high-powered viera of white blood cells. SURGEON: Rodrigo Aparicio M.D. PICTURE FRAMES INSPECTOR: Bill Bernard PA-C. The PA's assistance was required for the safe and efficient completion of the entire case. This provider's expertise and technical skill were required throughout the case. The PA assisted with preoperative coordination, intraoperative retraction, wound closure, dressing and splint application, as well as postoperative documentation and care coordination. ANESTHESIA: General LMA anesthesia. COMPLICATIONS: None. IMPLANTS: Milton revision total joint revision stem, size 12 long stem on the femoral side, a size 11 on the tibial side. These were 150 mm stems, no offset, with 15 and a 10 mm augment on the femur. Baseplate, no augment. The poly was 16 mm deep dish, a constrained liner with a 32 mm patellar button. All components were cemented. DESCRIPTION OF PROCEDURE: The patient was brought to the operating room, put to sleep with general LMA anesthesia. Once asleep, the patient had the right leg sterilely prepped and draped in the usual sterile fashion. Timeout was performed confirming the operative site by initials, consent form, and x-rays. Tourniquet inflated to 250 pounds of pressure. We made a midline incision, midvastus approach was performed. We exposed the joint, subluxed the patella laterally and then removed the components using osteotomes. Once removed, excess cement was removed. We reamed up the canal to the size 12, the tibia size 11. We trialed the components after freshening the cut on the tibia and augments on the femur were 10 mm medial and 15 mm lateral. The patient tolerated this well. We then prepared the patella with a 32 mm patellar button. Once this was prepared, I trialed the components. The 16 was most appropriate. We did use the OrthoSensor to gain alignment and the correct tension. This gave us full motion as well as tension. We cemented into place the components with a 16 mm post. There were no complications. We cemented into place a 32 mm patellar button after removing the prior patella. There was no infection. The pathology report showed no white blood cells. Once this was done, we then repaired the medial capsule with #1 Stratafix x3 sutures, closed the skin with Stratafix and adhesive closure. Sterile bandage was applied. The patient tolerated this well. Tourniquet was deflated at 63 minutes. RBH:shaw Job ID: [id number] Doc ID: [id number] Rodrigo Aparicio MD
--- NOTE | 2021-11-05 16:05 | XRay Report ---
CLINICAL INFORMATION: Post-Op Total Knee COMPARISON: None. FINDINGS: Longstem total knee revision is anatomically aligned. No osseous abnormalities. Periarticular soft tissue swelling seen as expected. IMPRESSION: Longstem total knee revision in anatomic alignment Interpreted and Authenticated by: Matt Tomas 11/05/21
[2021-11-05] MEDS: GLIMEPIRIDE 2 MG TABLET PO SCH (17:30)
[2021-11-05] MEDS: GABAPENTIN 300 MG CAPSULE PO SCH ×2 (17:30→20:41)
[2021-11-05] MEDS: HYDROcodone/APAP 10/325MG TABLET PO PRN (17:30)
[2021-11-05] MEDS: metFORMIN 850 MG TABLET PO SCH (17:30)
[2021-11-05] MEDS: 0.45 % SODIUM CHLORIDE 1,000 ML IV SCH (17:44)
[2021-11-05] MEDS: HYDROmorphone 1 MG/ML SYRINGE IV PRN ×2 (19:14→21:51)
[2021-11-05] MEDS: ceFAZolin 1 GM VIAL IV SCH (20:39)
[2021-11-05] MEDS: ASPIRIN 81 MG TAB.CHEW PO SCH (20:39)
[2021-11-05] MEDS: DOCUSATE SODIUM 100 MG CAPSULE PO SCH (20:40)
[2021-11-05] MEDS: 0.9 % SODIUM CHLORIDE 10 ML SYRINGE IV SCH (20:42)
[2021-11-05] MEDS ORDERED: SENNOSIDES 1 TABLET PO SCH (21:00)
[2021-11-05] MEDS ORDERED: ATORVASTATIN 10 MG TABLET PO SCH (21:00)
[2021-11-05] MEDS ORDERED: OXYBUTYNIN CHLORIDE 5 MG TAB.XL.24H PO SCH (21:00)
[2021-11-06] MEDS: ceFAZolin 1 GM VIAL IV SCH (03:57)
[2021-11-06] MEDS: HYDROcodone/APAP 10/325MG TABLET PO PRN ×3 (04:17→12:01)
[2021-11-06] MEDS: 0.45 % SODIUM CHLORIDE 1,000 ML IV SCH (04:32)
[2021-11-06] MEDS: 0.9 % SODIUM CHLORIDE 10 ML SYRINGE IV SCH (05:16)
[2021-11-06] MEDS: HYDROmorphone 1 MG/ML SYRINGE IV PRN ×2 (05:16→10:32)
[2021-11-06] MEDS ORDERED: 0.9 % SODIUM CHLORIDE 9 ML, KETOROLAC 30 MG, ROPIVACAINE HCL/PF 49.5 ML, EPINEPHrine 0.... IJ SCH (06:00)
--- NOTE | 2021-11-06 06:54 | Orthopedic Progress Note ---
SUBJECTIVE Subjective Patient information: Note initiated : 11/06/21 at 6:53 am Service Date, if different from initiated Date: [] Patient: Jeannie Esposito 65 y/o F admitted on 11/05/21 for Rt Revision Total Knee Arthroplasty . Chief Complaint: [Pt is stable this morning on post operative day without any significant concerns or complaints. Patients vital signs have remained stable. Patients dressing is dry and is grossly intact from a neurovascular and motor standpoint. Patients 10 point ROS is otherwise negative. ] Constitutional Vitals: Vital Signs Temp Pulse Resp BP Pulse Ox 96.8 F L 77 16 116/67 93 11/06/21 04:14 11/06/21 04:14 11/06/21 04:14 11/06/21 04:14 11/06/21 05:20 Period Temp Pulse Resp BP Sys/Kelley Pulse Ox Last 24 Hr 96.8 F-98.1 F 68-84 9-20 98-153/57-88 92-100 Intake and Output 11/05/21 11/06/21 11/06/21 21:59 05:59 13:59 Intake Total 1450 1775 Output Total 603 200 Balance 847 1575 Weight 182 lb 8 oz Intake & Output: Intake & Output 11/05/21 11/06/21 11/06/21 21:59 05:59 13:59 Intake Total 1450 1775 Output Total 603 200 Balance 847 1575 Weight 182 lb 8 oz Intake: IV 975 Sodium Chloride 0.45% 1,000 ml 975 @ 100 mls/hr IV .Q10H [facility] Rx#: [id number] Oral 800 IV - Manual Only 1450 Output: Void Amount 500 200 # of times incontinent of urine 3 Estimated Blood Loss 100 Other: Meal Dinner Jello Percent of Meal Consumed 100% 100% Feeding Ability Independent Independent Urine Appearance Clear Clear Urine Color Dark Yellow Dark Yellow Urine Odor Normal Normal # Voids 1 Extremities Exam Extremities exam: Present normal capillary refill, normal inspection, Foot pink and warm and neurovascular intact OBJ DATA Labs CBC & Chem 7: 11/06/21 05:05 11/01/21 15:27 Labs: Abnormal Lab Results 11/06/21 05:05 Hct 30.1 L Meds: Medications Acetaminophen (Acetaminophen 325 Mg Tablet) 650 mg PO Q6HP PRN; Protocol PRN Reason: Per Pain Protocol/Fever > 101 Hydrocodone Bitart/Acetaminophen (Hydrocodone/Apap 10/325mg Tablet) 1 - 2 tab PO Q4HP PRN; Protocol PRN Reason: Per Pain Protocol Last Admin: 11/06/21 04:17 Dose: 2 tab Documented by: Aspirin (Aspirin 81 Mg Tab.Chew) 81 mg PO BID [facility] Last Admin: 11/05/21 20:39 Dose: 81 mg Documented by: Atorvastatin Calcium (Atorvastatin 10 Mg Tablet) 10 mg PO HS [facility] Last Admin: 11/05/21 20:40 Dose: 10 mg Documented by: Bisacodyl (Bisacodyl 10 Mg Supp.Rect) 10 mg OR Q2-3DAYS PRN PRN Reason: Constipation Bupropion HCl (Bupropion 150 Mg Tab.Xl.24h) 300 mg PO DAILY [facility] Sodium Chloride 9 ml/Ketorolac Tromethamine 30 mg/Ropivacaine 49.5 ml/Epinephrine HCl 0.5 mg 0 ml IJ ONCE [facility] Stop: 11/06/21 15:00 Docusate Sodium (Docusate Sodium 100 Mg Capsule) 100 mg PO BID [facility] Last Admin: 11/05/21 20:40 Dose: Not Given Documented by: Gabapentin (Gabapentin 300 Mg Capsule) 300 mg PO QID [facility] Last Admin: 11/05/21 20:41 Dose: 300 mg Documented by: Glimepiride (Glimepiride 2 Mg Tablet) 2 mg PO BIDAC [facility] Last Admin: 11/05/21 17:30 Dose: 2 mg Documented by: Hydrochlorothiazide (Hydrochlorothiazide 12.5 Mg Capsule) 12.5 mg PO DAILY [facility] Hydromorphone HCl (Hydromorphone 1 Mg/Ml Syringe) 0.5 - 2 mg IV Q2HP PRN; Protocol PRN Reason: Per Pain Protocol Last Admin: 11/06/21 05:16 Dose: 1 mg Documented by: Insulin Glargine (Insulin Glargine, Human 1 Unit/0.01 Ml) 50 unit SQ QDAY [facility] Iron Carb/Multivit/Missile Technician/Folic Acid (Multivit,Ther Iron,Ca,Fa & Min 1 Tablet) 1 tab PO DAILY [facility] Lisinopril (Lisinopril 10 Mg Tablet) 10 mg PO DAILY [facility] Magnesium Hydroxide (Magnesium Hydroxide 30 Ml Oral.Susp) 30 ml PO BIDP PRN PRN Reason: Constipation Metformin HCl (Metformin 850 Mg Tablet) 850 mg PO TIDCC [facility] Last Admin: 11/05/21 17:30 Dose: 850 mg Documented by: Ondansetron HCl (Ondansetron 4 Mg/2 Ml Vial) 4 mg IV Q4HP PRN PRN Reason: Nausea And Vomiting Oxybutynin Chloride (Oxybutynin Chloride 5 Mg Tab.Xl.24h) 15 mg PO [facility] Last Admin: 11/05/21 20:40 Dose: 15 mg Documented by: Polyethylene Glycol (Polyethylene Glycol 3350 17 Gm Packet) 17 gm PO DAILYP PRN PRN Reason: Constipation Senna (Sennosides 1 Tablet) 2 tab PO [facility] Last Admin: 11/05/21 20:41 Dose: Not Given Documented by: Sitagliptin Phosphate (Sitagliptin 50 Mg Tablet) 50 mg PO QDAY [facility] Sodium Biphosphate/Sodium Phosphate (Fleets Adult Enema) 1 dose OR Q3-4DAYS PRN PRN Reason: Constipation Sodium Chloride (0.9 % Sodium Chloride 10 Ml Syringe) 10 ml IV Q8 [facility] Last Admin: 11/06/21 05:16 Dose: 10 ml Documented by: Temazepam (Temazepam 15 Mg Capsule) 15 mg PO HSP PRN PRN Reason: Insomnia Tramadol HCl (Tramadol 50 Mg Tablet) 50 - 100 mg PO Q6HP PRN PRN Reason: Pain A/P Narrative A/P Narrative: The patient has been educated regarding dressing care, , restrictions, and follow up appointments. The patient has had all necessary DME prescribed. The patient has remained relatively stable during their hospital course. Time Spent With Patient Time: Total time spent is greater than 50% in coordination of care (as documented) at patient's floor/unit and/or counseling patient: Total time spent with greater than 50% in coordination of care (as documented) at patient's floor/unit and/or counseling patient:: less than 15 minutes Critical Care Time: No
[2021-11-06] MEDS: GABAPENTIN 300 MG CAPSULE PO SCH ×2 (08:20→12:02)
[2021-11-06] MEDS: ASPIRIN 81 MG TAB.CHEW PO SCH (08:20)
[2021-11-06] MEDS: metFORMIN 850 MG TABLET PO SCH ×2 (08:20→12:02)
[2021-11-06] MEDS: GLIMEPIRIDE 2 MG TABLET PO SCH (08:23)
[2021-11-06] MEDS: DOCUSATE SODIUM 100 MG CAPSULE PO SCH (08:26)
[2021-11-06] MEDS ORDERED: INSULIN GLARGINE, HUMAN 1 UNIT/0.01 ML SQ SCH (09:00)
[2021-11-06] MEDS ORDERED: MULTIVIT,THER IRON,CA,FA & MIN 1 TABLET PO SCH (09:00)
[2021-11-06] MEDS ORDERED: LISINOPRIL 10 MG TABLET PO SCH (09:00)
[2021-11-06] MEDS ORDERED: sitaGLIPtin 50 MG TABLET PO SCH (09:00)
[2021-11-06] MEDS ORDERED: LISINOPRIL/HCTZ 10/12.5MG TABLET PO SCH (09:00)
[2021-11-06] MEDS ORDERED: buPROPion 150 MG TAB.XL.24H PO SCH (09:00)
[2021-11-06] MEDS ORDERED: HYDROCHLOROTHIAZIDE 12.5 MG CAPSULE PO SCH (09:00)
== END 2021-11-06 14:00 | disposition home or self-care (01) | DRG 468 ==
LOC: MEDSUR 09:39 → EDSTATUS 12:45
PROVIDERS: ADMIT Orthopaedic Surgery; ATTEND Orthopaedic Surgery